=== PATIENT | male | born 2000 | race Caucasian/White ===

== ENCOUNTER 2019-04-22 17:49 | Inpatient (IN) | payer OTHER | END 2019-05-22 13:30 | LOC: ICU 04-28 16:07 → 4TH 05-19 10:55 → ICU 04-28 16:07 → ER 17:49 → ICU 18:45 | PROC: 5A1955Z Respiratory Ventilation, Greater than 96 Consecutive Hours (ICD-10-PCS; principal; 2019-05-06 13:15) | PROC: 0BH17EZ Insertion of Endotracheal Airway into Trachea, Via Natural or Artificial Opening (ICD-10-PCS; 2019-05-06 13:15) | DX: A41.9 Sepsis, unspecified organism (principal); R65.21 Severe sepsis with septic shock; J69.0 Pneumonitis due to inhalation of food and vomit; E10.11 Type 1 diabetes mellitus with ketoacidosis with coma; J96.00 Acute respiratory failure, unspecified whether with hypoxia or hypercapnia; E87.2 Acidosis; E87.6 Hypokalemia; F17.210 Nicotine dependence, cigarettes, uncomplicated; Z79.4 Long term (current) use of insulin; R19.7 Diarrhea, unspecified ==

== ENCOUNTER 2019-05-22 10:46 | Inpatient (IN) | payer OTHER ==
[~2019-05-22] VITALS: Ht 180.3 cm; Wt 48.2 kg
[~2019-05-22 10:46] MED LIST: AMPH25CA3 PO; ATOM60CA3; CALC-6 PO; INSASP10V SQ; INSU100C SQ; INSU100C4 SQ; INSU100I10 SQ; INSU100I14 SQ; INSU100I23 SQ; POTA20TA8 PO; STERIOD CREAM; SULF1TAB7 PO
--- NOTE | 2019-05-22 13:23 | NUR ---
Pt admitted to room 233-1, with an admitting diagnosis of Critical Illness Myopathy on 05/22/19 from 4th floor, via w/c, accompanied by TT, PT, & SM, PCT/1:1 sitter. MIRIAN COLLINS introduced to surroundings, call light, bed controls, phone, TV, temperature control, lights, meal times, smoking policy, visitor policy, side rail policy, bathrooms and showers. Patient Rights given to patient in the handbook. MIRIAN COLLINS acknowledges understanding that [facility] is not responsible for the loss or damage to any personal effects or valuables that are kept in the patients posession during their hospitalization. The following Patient Care Plans were discussed with the pt: Discharge Planning, Self Care Deficit, Impaired Mobility, Alteration in Nutrition/Respiratory. MIRIAN COLLINS acknowledges understanding of Interdisciplinary Patient Education. Patient and/or family were informed about the Rapid Response Team and its purpose. Patient received Patient Rights Booklet, which includes Privacy Act Statement and Data Collection Information Summary.
--- NOTE | 2019-05-22 13:44 | Physical Therapy Evaluation ---
PT Evaluation-General Medical Diagnosis Admission Date May 22, 2019 at 13:23 Medical Diagnosis: DKA Onset Date: Apr 22, 2019 Therapy Diagnosis Therapy Diagnosis: generalized weakness/debility Height/Weight Height (Feet): 5 Height (Inches): 11.00 Weight (Pounds): 108 Weight (Ounces): 9.0 Precautions Precautions/Isolations: Standard Precautions Weight Bear Status Right Lower Extremity: Right Full Weight Bearing Left Lower Extremity: Left Full Weight Bearing Referral Physician: La Reason for Referral: Evaluation/Treatment Medical History Pertinent Medical History: DM, Smoking Current History Found unresponsive in his home by roommates. Patient has been on mechanical ventilator, vapotherm and is now on RA. Patient has a trach and PEG secondary to extreme weakness. Reviewed History: Yes Social History Home: Single Level Current Living Status: Entry Into Home: Level Entry Prior/Core FIM Prior Level of Function Therapy Code Descriptions/Definitions Functional [place] Measure: 0=Not Assessed/NA 4=Minimal Assistance 1=Total Assistance 5=Supervision or Setup 2=Maximal Assistance 6=Modified [place] 3=Moderate Assistance 7=Complete [place] Therapy Quality Codes: 6 Independent with activity with or without an assistive device 5 Patient requires set up or clean up by helper. Patient completes activity by themselves 4 Supervision or touching assist (CGA). [place] provide cues , steadying assist 3 The helper provides less than half the effort to complete the activity 2 The helper provides more than half the effort to complete the activity 1 Dependent. The helper does all the effort to complete an activity 7 Patient refused to complete or attempt activity 9 The patient did not perform the activity before the current illness or injury 88 Not attempted due to Medical conditions or safety concerns Functional Abilities and Goals: Independent: Patient completed the activities by him/herself, with or without an assistive device, with no assistance from a helper. Needed Some Help: Patient needed partial assistance from another person to complete activities. Dependent: A helper completed the activities for the patient. Unknown: Not Applicable: Bed Mobility: 7 Transfers (B,C,W/C) (FIM): 7 Gait: 7 Stairs: 7 Indoor Mobility (Ambulation): Independent Stairs: Independent Prior Devices Use: None PT Evaluation-Current Subjective Patient is very agreeable to transfer to ARU. Pain Numeric Pain Scale: 0-No Pain Location: No Pain Reported Objective Patient Orientation: Normal For Age Problem Solving: Fair Attachments: PEG Tube Trach ROM/Strength ROM Lower Extremities bilateral LE WFL Strenght Lower Extremities right knee flexion/extension 3-/5; hip flexion 3-/5; DF/PF 2-/5 left knee flexion/extension 3-/5; hip flexion 3-/5; DF/PF 2-/5 Integumentary/Posture Integumentary refer to nursing notes Bowel Incontinence: No Bladder Incontinence: No Posture WFL Neuromuscular (Tone, Coordination, Reflexes) diminished coordination due to weakness/muscle atrophy Sensory Vision: Functional Hearing: Functional Sensation Right Lower Extremit: Impaired Sensation Left Lower Extremity: Impaired Transfers Therapy Code Descriptions/Definitions Functional [place] Measure: 0=Not Assessed/NA 4=Minimal Assistance 1=Total Assistance 5=Supervision or Setup 2=Maximal Assistance 6=Modified [place] 3=Moderate Assistance 7=Complete [place] Therapy Quality Codes: 6 Independent with activity with or without an assistive device 5 Patient requires set up or clean up by helper. Patient completes activity by themselves 4 Supervision or touching assist (CGA). [place] provide cues , steadying assist 3 The helper provides less than half the effort to complete the activity 2 The helper provides more than half the effort to complete the activity 1 Dependent. The helper does all the effort to complete an activity 7 Patient refused to complete or attempt activity 9 The patient did not perform the activity before the current illness or injury 88 Not attempted due to Medical conditions or safety concerns Transfers (B, C, W/C) (FIM): 4 Scootin Rollin Roll Left to Right (QC): 5 Supine to/from Sit: 5 Sit to/from Stand: 4 Sit to Lying (QC): 5 Lying to Sitting/Side of Bed(Q: 5 Sit to Stand (QC): 4 Chair/Yxx-zf-Gzpnk Xfer(QC): 4 CGA for safety Gait Does the Patient Walk?: Yes Mode of Locomotion: Both Anticipated Mode of Locomotion: Walk Gait (FIM): 4 Distance (FIM): 3=150 ft Walk 10 feet (QC): 4 Walk 50 ft with 2 Turns(QC): 4 Walk 150 ft (QC): 4 Walking 10ft/uneven surface-QC: 4 Distance: 150' Gait Level of Assist: 4 Gait Persons Needed: 1 Gait Assistive Device: FWW Comments/Gait Description noted slight drop foot bilateral LE and extended UE's with FWW use Wheelchair Training Does the Pt Use a Wheelchair?: Yes Balance Sitting Static: Normal Sitting Dynamic: Normal Standing Static: Fair Standing Dynamic: Fair Assessment/Needs 18 y.o. male, will benefit from skilled PT to address functional strength and mobility to improve current LOF to safely return to independent PLOF in his own home. Patient is severely debility due to extended ventilator use and disease process. Rehab Potential: Fair Post Rehab Potential-Barriers: compliance PT Short Term Goals Short Term Goals Time Frame: Jun 07, 2019 Transfers (B,C,W/C) (FIM): 5 Gait (FIM): 5 Distance (FIM): 3=150 ft Gait Distance Comment: 200' Gait Level of Assist: 5 Gait Assistive Device: FWW PT Fpc Goals Profiling Machine Set Up Operator Tool Goals PT Profiling Machine Set Up Operator Tool Goals Time Frame: Jun 17, 2019 Transfers (B,C,W/C) (FIM): 6 Sit to Lying (QC): 6 Lying-Sitting on Side/Bed(QC): 6 Sit to Stand (QC): 6 Rollin Roll Left to Right (QC): 6 Chair/Rsb-oz-Nergb Xfer(QC): 6 Car Transfer (QC): 6 Does the Patient Walk: Yes Gait (FIM): 6 Gait distance (FIM): 3=150 ft Distance: >300' Walk 10 feet (QC): 6 Walk 10ft-Uneven Surface(QC): 6 Walk 50ft with 2 Turns (QC): 6 Walk 150 ft (QC): 6 Gait Level of Assist: 6 Gait Assistive Device: None, FWW Stairs (FIM): 6 # of Steps: 12 1 Step (curb) (QC): 6 4 Steps (QC): 6 12 Steps (QC): 6 Stairs Level Of Assist: 6 Picking up an Object (QC): 6 PT Plan Problem List Problem List: Activity Tolerance, Functional Strength, Safety, Balance, Gait, Transfer, Bed Mobility Treatment/Plan Treatment Plan: Continue Plan of Care Treatment Plan: Bed Mobility, Education, Functional Activity Cory, Functional Strength, Gait, Safety, Therapeutic Exercise, Transfers Treatment Duration: Jun 17, 2019 Frequency: At least 5 of 7 days/Wk (IRF) Estimated Hrs Per Day: 1.5 hours per day Patient and/or Family Agrees t: Yes Discharge Recommendations Therapy D/C Recommendations: Home w/ Family Support, Home Independently Time/GCodes Time In: 1323 Time Out: 1340 Total Billed Treatment Time: 17 Total Billed Treatment 1 visit EVModC 17 min REGIS CHOWDARY PT May 22, 2019 13:44
[2019-05-22 13:53] VITALS: BP 110/75
--- NOTE | 2019-05-22 14:25 | Physical Therapy Daily Note ---
PT Daily Note-Current Subjective Patient just complete group activity. Mental Status Patient Orientation: Normal For Age Attachments: PEG Tube Transfers Therapy Code Descriptions/Definitions Functional [place] Measure: 0=Not Assessed/NA 4=Minimal Assistance 1=Total Assistance 5=Supervision or Setup 2=Maximal Assistance 6=Modified [place] 3=Moderate Assistance 7=Complete [place] Therapy Quality Codes: 6 Independent with activity with or without an assistive device 5 Patient requires set up or clean up by helper. Patient completes activity by themselves 4 Supervision or touching assist (CGA). [place] provide cues , steadying assist 3 The helper provides less than half the effort to complete the activity 2 The helper provides more than half the effort to complete the activity 1 Dependent. The helper does all the effort to complete an activity 7 Patient refused to complete or attempt activity 9 The patient did not perform the activity before the current illness or injury 88 Not attempted due to Medical conditions or safety concerns Transfers (B, C, W/C) (FIM): 4 Scootin Sit to/from Stand: 4 Sit to Stand (QC): 4 Car Transfer (QC): 5 Weight Bearing Right Lower Extremity: Right Full Weight Bearing Left Lower Extremity: Left Full Weight Bearing Gait Training Does the Patient Walk?: Yes Gait (FIM): 2 Distance (FIM): 0=708-79 ft Distance: 75' x 2 Walk 10 feet (QC): 4 Walk 50 ft with 2 Turns(QC): 4 Walking 10ft/uneven surface-QC: 4 Gait Level of Assist: 4 Gait Persons Needed: 1 Gait Assistive Device: FWW patient is very fatigued/slow, steady gait sequence with improvement in dorsiflexion bilaterally Stair Training Stair Training: Handrails/: uses walker Stairs (FIM): 1 #of Steps: 1 1 Step (curb) (QC): 4 4 Steps (QC): 9 12 Steps (QC): 9 Stairs: Pattern: Step to Level of Assist: 4 Exercises Seated Therapy Exercises: Ankle pumps, Long arc quads, Hip flexion Seated Reps: 15 (2 sets) Treatments Education with patient on importance of compliance with treatment program and discussed goal setting with patient as well. Assessment Patient fatigues with minimal activity and requires sitting recovery periods. Patient voices understanding on compliance with program. RN notified of therapist discussion with patient. PT Short Term Goals Short Term Goals Time Frame: Jun 07, 2019 Transfers (B,C,W/C) (FIM): 5 Gait (FIM): 5 Distance (FIM): 3=150 ft Gait Distance Comment: 200' Gait Level of Assist: 5 Gait Assistive Device: FWW PT Staff Pharmacist Goals Staff Pharmacist Goals PT Staff Pharmacist Goals Time Frame: Jun 17, 2019 Transfers (B,C,W/C) (FIM): 6 Sit to Lying (QC): 6 Lying-Sitting on Side/Bed(QC): 6 Sit to Stand (QC): 6 Rollin Roll Left to Right (QC): 6 Chair/Epq-kl-Gkusy Xfer(QC): 6 Car Transfer (QC): 6 Does the Patient Walk: Yes Gait (FIM): 6 Gait distance (FIM): 3=150 ft Distance: >300' Walk 10 feet (QC): 6 Walk 10ft-Uneven Surface(QC): 6 Walk 50ft with 2 Turns (QC): 6 Walk 150 ft (QC): 6 Gait Level of Assist: 6 Gait Assistive Device: None, FWW Stairs (FIM): 6 # of Steps: 12 1 Step (curb) (QC): 6 4 Steps (QC): 6 12 Steps (QC): 6 Stairs Level Of Assist: 6 Picking up an Object (QC): 6 PT Plan Treatment/Plan Treatment Plan: Continue Plan of Care Treatment Plan: Bed Mobility, Education, Functional Activity Cory, Functional Strength, Gait, Safety, Therapeutic Exercise, Transfers Treatment Duration: Jun 17, 2019 Frequency: At least 5 of 7 days/Wk (IRF) Estimated Hrs Per Day: 1.5 hours per day Patient and/or Family Agrees t: Yes Time/GCodes Time In: 1400 Time Out: 1433 Total Billed Treatment Time: 33 Total Billed Treatment 1 visit GT 15 min FA 18 min REGIS CHOWDARY PT May 22, 2019 14:25
--- NOTE | 2019-05-22 14:29 | NUR ---
Pt's 2 Insulin Pens placed in Rehab locked med room.
--- NOTE | 2019-05-22 14:34 | NUR ---
REVIEWED MED REC IT WAS REPORTED UPON ADMISSION TO 4TH FLOOR.
--- NOTE | 2019-05-22 14:50 | Therapy Group Daily Note ---
Therapy Daily Group Note Patient Education Topic Exercises Exercises LE Seated Exercise, UE Exercise Session Ratio (pt:therapist): 4:1 Goal of Session: UE/LE Strengthing, Other (list) (deep breathing) Encourage functional strength and ROM of U/LE as well as facilitate deep breathing techniques in light of recent vent dependent Goal Met for this Session: Yes Pt Benefit of Group: Increased Functional Strength, Socialization, Other Pt seemed to enjoy interacting with others within the group and received encouratement of the progress he will make. Other/Notes pt attended part of the group session. His primary exercises performed were deep breathing and LE ther ex. He was participatory and wanted to lead his exercise willingly. Start Time: 13:40 Stop Time: 14:00 Total Billed Treatment Time: 20 Total Billed Treatment visit GRP 20 YOLANDA PIZARRO PT May 22, 2019 14:50
[2019-05-22 15:00] VITALS: BP 110/75
--- NOTE | 2019-05-22 15:03 | PM&R H&P / Post Admit Assess ---
History of Present Illness HPI/Chief Complaint Chief complaint: Critical illness myopathy History of present illness: This is a 18-year-old white male with a past medical history of type 1 diabetes who was admitted 31 days ago from the ER with critical illness requiring ventilator dependence and insulin drip with multiple attempts to extubate which were unsuccessful and subsequently required trach placement in addition to PEG tube placement who presents to inpatient rehab unit clinically stable and much improved and no longer critically ill but has a BMI of 15 and such severe weakness he will need aggressive rehab and therapy in order to regain any type of function. 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 He is status post several weeks of antibiotics in addition to antifungals and currently being monitored by pulmonology for severe pulmonary disease brought on by long-term ventilator support. Blood sugars have been very labile including multiple hypoglycemic episodes so will minimize the amount of insulin considering weight loss of 60 pounds over the last couple of months indicating the weight loss started a month before this critical illness currently as a result of noncompliance with insulin administration. Previously he was independent of ADLs and full-time worker as a welder metal fab and was ambulating without assistive device. Source: patient, RN/MD, old records Exam Limitations: no limitations Date Seen 05/22/19 Time Seen by a Provider: 14:00 Attending Physician Renteta Tovar DO PCP No,Local Physician Referring Physician Date of Admission May 22, 2019 at 13:23 Home Medications & Allergies Home Medications Reviewed patient Home Medication Reconciliation performed by pharmacy medication reconciliations pump house technician and/or nursing. Patients Allergies have been reviewed. Allergies Allergies Coded Allergies No Known Drug Allergies (Unverified06/23/09) Past Clxwrbg-Apmnyb-Itetfo Hx Past Med/Social Hx: Reviewed Nursing Past Med/Soc Hx, Reviewed and Corrections made Patient Social History Marrital Status: single Employed/Student: employed (welder metal fab) Smoking Status: Unknown if Ever Smoked Type Used: Cigarettes 2nd Hand Smoke Exposure: No Recent Foreign Travel: No Contact w/other who traveled: No Recent Hopitalizations: Yes (DKA) Recent Infectious Disease Expo: No Seasonal Allergies Seasonal Allergies: No Past Medical History trach, peg during this hospital stay Reproductive: No Sexually Transmitted Disease: No HIV/AIDS: No Endocrine: Diabetes, Insulin dep Loss of Vision: Denies Hearing Impairment: Denies History of Blood Disorders: No Adverse Reaction to Blood Cristobal: No Family History Patient reports no known family medical history. Other Conditions/Hx Review of Systems Constitutional: see HPI, malaise, weakness EENTM: no symptoms reported Respiratory: cough, dyspnea on exertion Cardiovascular: no symptoms reported Gastrointestinal: abdominal pain, loss of appetite Genitourinary: no symptoms reported Musculoskeletal: no symptoms reported Skin: see HPI (left heel early decubitus) All Other Systems Reviewed Negative Unless Noted: Yes Physical Exam Exam Vital Signs Vital Signs Date Time Temp Pulse Resp B/P (MAP) Pulse Ox O2 Delivery O2 Flow Rate FiO2 05/22/19 19:11 98.1 115 20 112/70 (84) 92 Nasal Cannula 2.00 Capillary Refill : General Appearance: WD/WN, Anxious, Chronically ill, Cachetic HEENT: PERRL/EOMI, Normal ENT Inspection, Pharynx Normal, Moist Mucous Membranes, Other Neck: Full Range of Motion, Normal Inspection, Non Tender, Supple, Other (trach in place) Respiratory: Chest Non Tender, No Accessory Muscle Use, No Respiratory Distress, Crackles, Decreased Breath Sounds, Wheezing Cardiovascular: Regular Rate, Rhythm, No Edema, No Gallop, No JVD, No Murmur Gastrointestinal: Normal Bowel Sounds, No Organomegaly, No Pulsatile Mass, Non Tender, Soft, Other (peg in place) Back: Normal Inspection, No CVA Tenderness, No Vertebral Tenderness Extremity: Normal Capillary Refill, Normal Inspection, Normal Range of Motion, Non Tender, No Calf Tenderness, No Pedal Edema Neurologic/Psychiatric: Alert, Oriented x3, No Motor/Sensory Deficits, Normal Mood/Affect Skin: Normal Color, Warm/Dry Lymphatic: No Adenopathy Results Results/Procedures Labs Patient resulted labs reviewed. Assessment/Plan Assessment and Plan Assess & Plan/Chief Complaint Assessment: Critical illness myopathy Type 1 diabetes Poorly controlled diabetes mellitus Cachexia Elevated troponin PEG tube in place Trach in place Brittle diabetes Plan: Minimize hypoglycemia by checking blood sugar checks every 4 hours and modified sliding scale to prevent hypoglycemia PEG tube feedings Intensive rehab with therapies Monitor closely (1) Myopathy (2) Tracheostomy in place (3) PEG (percutaneous endoscopic gastrostomy) status (4) Decubitus ulcer, heel (5) Cachexia (6) Anemia (7) Poorly controlled diabetes mellitus (8) Increased ammonia level (9) Respiratory failure (10) Diabetic ketoacidosis (11) Pneumonia (12) Acute pancreatitis (13) Electrolyte imbalance (14) Leukocytosis Post Admission Physician Asses Date seen by provider: May 22, 2019 Time seen by provider: 14:00 Admisison Dx: (1) Myopathy The preadmission screen agrees with the post admission assessment that 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 The patient will have a comprehensive program of inpatient rehabilitation with a goal of maximizing level of functional independence prior to discharge home with family. The patient will have PT/OT ninety minutes per day, each discipline, five days a week for gait, strengthening, conditioning, balance, ADLs, any patient/family/caregiver training as necessary. Speech therapy to do cognitive assessment and treat as indicated. Rehabilitation nursing to assist with bowel, bladder, skin, wound care, medication administration, pain management. Mapping Specialist to assist with discharge planning, community reentry. SCD's for DVT prophylaxis. He appears to be well motivated to participate in three hours of therapy a day. He should be able to tolerate three hours of therapy a day from a medical standpoint. He should benefit from the three hours of therapy a day. He has a reasonable discharge plan, reasonable discharge rehabilitation goals and a supportive family. He has various comorbidities that need to be closely monitored with medications and treatments adjusted on a daily basis as needed. These include: see list Barriers to discharge for this patient who had been independent prior to this are for him to be modified independent to supervision for ADLs and mobility skills prior to discharge home with family, so as to lessen the burden of the caregivers. Risks for this patient include: 1. Fall 2. Fracture 3. DVT 4. Pulmonary embolism 5. Wound infection 6. Skin breakdown 7. Contractures 8. Poorly controlled pain 9. Urinary retention 10. UTI 11. Respiratory infection 12. Aspiration Estimated Length of Stay: 14 days Prognosis: Rehab prognosis appears good for goal of discharge home with family modified independent to supervision for ADLs and mobility skills. RENETTA TOVAR DO May 22, 2019 15:03
[2019-05-22] MEDS ORDERED: SILVASORB GEL 1.5 OZ TP SCH (15:15)
[2019-05-22] MEDS ORDERED: ZINC OXIDE 16% OINT (BUTT PASTE) 113 GM TUBE TOP PRN (15:15)
[2019-05-22] MEDS ORDERED: APAP 325 MG/10.15 ML LIQ (TYLENOL) UDC PO PRN (15:15)
[2019-05-22] MEDS ORDERED: RT-ALBUTEROL/IPRATROPIUM 3 ML (DUONEB) VIAL INH PRN (15:15)
[2019-05-22] MEDS ORDERED: RT-ALBUTEROL SULF 2.5 MG/3 ML PRE-MIX VIAL IH PRN (15:15)
[2019-05-22 15:42] VITALS: BP 108/72
--- NOTE | 2019-05-22 15:44 | Occupational Therapy Eval ---
OT Evaluation-General/PLF Medical Diagnosis Admission Date May 22, 2019 at 13:23 Medical Diagnosis: DKA Onset Date: Apr 22, 2019 Therapy Diagnosis Therapy Diagnosis: Weakness Height/Weight Height (Feet): 5 Height (Inches): 11.00 Weight (Pounds): 107 Weight (Ounces): 8.0 Precautions Precautions/Isolations: Standard Precautions Weight Bear Status Weight Bearing Restriction: Weight Bearing/Tolerated Referral Physician: La Referral Reason: Activity Tolerance, Self Care, Evaluation/Treatment, Strengthening/ROM Medical History Pertinent Medical History: DM, Smoking Current History Pt. found unconscious by room mate. Pt. has been on and off ventilator support since being in hospital. Tolerating room air at this time with trach in place. Reviewed History: Yes Social History Home: Single Level Current Living Status: Entry Into Home: Level Entry ADL-Prior Level of Function Therapy Code Descriptions/Definitions Functional Barnwell Measure: 0=Not Assessed/NA 4=Minimal Assistance 1=Total Assistance 5=Supervision or Setup 2=Maximal Assistance 6=Modified Barn[place] 3=Moderate Assistance 7=Complete [place] Therapy Quality Codes: 6 Independent with activity with or without an assistive device 5 Patient requires set up or clean up by helper. Patient completes activity by themselves 4 Supervision or touching assist (CGA). Dennison provide cues , steadying assist 3 The helper provides less than half the effort to complete the activity 2 The helper provides more than half the effort to complete the activity 1 Dependent. The helper does all the effort to complete an activity 7 Patient refused to complete or attempt activity 9 The patient did not perform the activity before the current illness or injury 88 Not attempted due to Medical conditions or safety concerns Functional Abilities and Goals: Independent: Patient completed the activities by him/herself, with or without an assistive device, with no assistance from a helper. Needed Some Help: Patient needed partial assistance from another person to complete activities. Dependent: A helper completed the activities for the patient. Unknown: Not Applicable: ADL PLOF Comments Pt. was independent with daily skills. 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 Drive Self: Yes OT Current Status Subjective Pt. does not report pain, but does verbalize being very tired. Appearance Pt. is up in chair when OT enters room. Pt. is eager to have a shower. Mental Status/Objective Patient Orientation: Person, Place, Time, Situation Attachments: PEG Tube, Telemetry Current Upper Extremity ROM WFL ADL-Treatment Bathing (FIM): 2 Shower/Bathe Self (QC): 2 Upper Body Dressing (FIM): 2 Upper Body Dressing (QC): 2 Lower Body Dressing (FIM): 2 Lower Body Dressing (QC): 2 On/Off Footwear (QC): 2 Transfers (B, C, W/C) (FIM): 4 Shower Transfer (FIM): 4 Other Treatments Pt. has difficulty standing due to fatigue. Pt. transferred to wheelchair from chair and went to shower. OT assisted pt. into shower. At this point, pt. has difficulty with strength and OT assisted with doffing clothing. Pt. states that the shower feels good, but does not initiate showering self. OT asks pt. if he needs assistance and he does. OT completed most bathing tasks for him. Pt. requested to sit in shower longer as it was his first in awhile. OT assisted pt. with slipper socks and fresh hospital gown after this, as pt. did not have much strength to snuff grinder shower. Transferred with min assist to wheelchair and then to bed from wheelchair. Nursing came in and OT/nursing assessed skin and positioned pt. to comfort level. All needs were met. Education OT Patient Education: Correct positioning, Modified ADL techniques, Progress t brandy Goal/Update tx plan, Purpose of tx/functional activities, Reviewed precautions, Rehab process, Transfer techniques Teaching Recipient: Patient Teaching Methods: Demonstration, Discussion Response to Teaching: Verbalize Understanding, Return Demonstration OT Short Term Goals Short Term Goals Time Frame: Jun 05, 2019 Eating(FIM): 5 Grooming(FIM): 4 Bathing(FIM): 3 Upper Body Dressing(FIM): 4 Lower Body Dressing(FIM): 3 Toileting(FIM): 4 Transfers (B,C,W/C) (FIM): 5 Toilet/Commode Transfer(FIM): 5 Shower Transfer(FIM): 5 1=Demonstrate adherence to instructed precautions during ADL tasks. 2=Patient will verbalize/demonstrate understanding of assistive devices/modifications for ADL. 3=Patient will improve strength/tolerance for activity to enable patient to perform ADL's. OT Public Health Aide Goals Correction Goals Time Frame: Jun 19, 2019 Eating (FIM): 6 Eating (QC): 6 Groomin Oral Hygiene (QC): 6 Bathing(FIM): 5 Shower/Bathe Self (QC): 5 Upper Body Dressing(FIM): 6 Upper Body Dressing (QC): 6 Lower Body Dressing(FIM): 6 Lower Body Dressing (QC): 6 On/Off Footwear (QC): 6 Toileting(FIM): 6 Toileting Hygiene (QC): 6 Transfers (B,C,W/C) (FIM): 6 Toilet/Commode Transfer(FIM): 6 Toilet/Commode Transfer (QC): 6 Shower Transfer(FIM): 5 Additional Goals: 1-Demonstrate ADL Tasks, 2-Verbalize Understanding, 3- ImproveStrength/Cory 1=Demonstrate adherence to instructed precautions during ADL tasks. 2=Patient will verbalize/demonstrate understanding of assistive devices/modifications for ADL. 3=Patient will improve strength/tolerance for activity to enable patient to perform ADL's. OT Education/Plan Problem List/Assessment Assessment: Decreased Activ Tolerance, Decreased UE Strength, Dependent Transfers, Impaired Bed Mobility, Impaired I ADL's, Impaired Self-Care Skills Discharge Recommendations Plan/Recommendations: Continue POC Therapy D/C Recommendations: Home w/ Family Support, Occupational Therapy Home Care, Scheduled Assistance Treatment Plan/Plan of Care Treatment,Training & Education: Yes Patient would benefit from OT for education, treatment and training to promote independence in ADL's, mobility, safety and/or upper extremity function for ADL's. Plan of Care: ADL Retraining, Functional Mobility, Group Exercise/Act as Ind, UE Funct Exercise/Act Treatment Duration: Jun 19, 2019 Frequency: At least 5 of 7 days/Wk (IRF) Estimated Hrs Per Day: 1.5 hours per day Agreement: Yes Rehab Potential: Good Time/GCodes Start Time: 14:33 Stop Time: 15:35 Total Time Billed (hr/min): 62 Billed Treatment Time 1, EVH x 15minutes, ADL x 47minutes JUNG LAMB OT May 22, 2019 15:44
--- NOTE | 2019-05-22 15:44 | NUR ---
Follow up visit: Pt is alert and oriented. No visitors at this time.
[2019-05-22] MEDS ORDERED: inSUlin ASPART (NovoLOG) 1 UNIT/0.01 ML (CHARGE PER UNIT) SC SCH (16:00)
--- NOTE | 2019-05-22 16:54 | ST Cognitive Linguistic Eval ---
Speech Evaluation-General Medical Diagnosis DKA Onset Date: Apr 22, 2019 Therapy Diagnosis Therapy Diagnosis: Cognitive-communication Precautions Precautions/Isolations: Aspiration, Fall Prevention, Standard Precautions Referral Referring Physician: Dr. Tovar Medical History Pertinent Medical History: DM, Smoking Reviewed History: Yes Social History Current Living Status: Speech PLF-Current Status Prior Level of Function The patient has been in the hospital for quite some time after being found unconcious by his room mate. He has been intubated two times. He currently is on a trach with room air. Subjective The patient was compliant with the cognitive evaluation. Language Eval: Auditory Comprehends Simple Yes/No Ques: Functional Indent/Objects Multiple [place]: Functional Ident/Pics in Multiple [place]: Functional Follows 1-Step Commands: Functional Follows Complex Directions: Mild Follows General Conversations: Functional Language Eval: Verbal Language Completes Spontaneous Greeting: Functional Produces Auto, Serial Info: Functional Imitates Simple Words/Phrases: Functional Word Finding: Mild Requests Basic Needs: Functional States Basic Personal Info: Functional Expresses Complex Ideas: Mild Objective Cognitive Domain Attention: WNL Memory: Mild Problem Solving: Mild Executive Functions: Mild Visuospatial Skills: Mild Composite Severity Rating: Mild Clock Drawing Severity Rating: Mild Objective Formal/Standardized Tests [facility] Status (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 He was admitted to the hospital several weeks ago after being found unconscious by his room mate. The patient has had a very complex hospital stay including being intubated twice. He currently has a trach with a speaking valve. He has a PEG tube for feeding at this time after several episodes of aspiration. The SLUMS was given with a score of 24/30 in MNCD range, The patient will receive skilled ST to focus on memory and problem solving related to safety awareness and regaining independence. The patient is expected to make good progress as his medical status improves. Communication/Social Cognition Comprehension: 6 Expression: 5 Social Interaction: 6 Problem Solvin Memory: 4 Speech Patient Assess Expression of Ideas/Wants: Exhibits (3) Understanding Verbal Content: Usually Understands (3) Brief Interview-Mental Status: Yes Repetition of Three Words: Three (3) Temporal Orientation: Year: Correct (3) Temporal Orientation: Month: Accurate within 5 days(2) Temporal Orientation: Day: Correct (1) Recall : Wear to say "Sock": Yes,after cueing (1) Recall : Color: No, could not recall (0) Recall : Bed: No, could not recall (0) Memory/Recall Ability: That he or she is in a hsp/hsp unit Speech Short Term Goals Short Term Goals Short Term Goals 1) The patient will complete memory tasks related to his daily needs at 90% or greater. 2) The patient will complete problem solving tasks related to his daily needs at 90% or greater. 3) The patient will complete safety awareness tasks related to his daily needs at 90% or greater. Speech Group Home Goals Group Home Goals The patient will improve safety awareness and independence in order to return home safely. Speech-Plan Patient/Family Goals Patient/Family Goals: The patient plans on returning home post rehab. Treatment Plan Speech Therapy Treatment Plan: Continue Plan of Care The patient will receive skilled ST for cognitive deficits. Treatment Duration: Jun 02, 2019 Frequency: 5 times per week Estimated Hrs Per Day: .5 hour per day Rehab Potential: Good Barriers to Learning: Patient has been in the hospital for quite a while with a complex medical status. Pt/Family Agrees to Plan: Yes Safety Risks/Education Teaching Recipient: Patient, Family, Significant Other Teaching Methods: Discussion Response to Teaching: Verbalize Understanding Education Topics Provided: Safety within the room Time Speech Therapy Time In: 16:30 Speech Therapy Time Out: 16:45 Total Billed Time: 15 Billed Treatment Time 1, SPSNDCOMP ARYAN Castro May 22, 2019 16:54
--- NOTE | 2019-05-22 18:07 | NUR ---
Gave 120cc of juice as ordered by Dr. Tovar per peg tube, pt sarina well. Pt reports that he can tell his B/S is coming up now.
[2019-05-22] MEDS: LACTOBACILLUS ACIDOPHILUS (PROBIOTIC) CAPSULE PO SCH (18:14)
[2019-05-22 18:16] VITALS: BP 113/76
[2019-05-22] MEDS: VANCOMYCIN 1 GM/NS 250 ML IVPB IV SCH ×2 (19:03)
[2019-05-22] MEDS: meTOprolol TARTRATE 50 MG (LOPRESSOR) TAB PEG SCH (19:08)
[2019-05-22 19:11] VITALS: BP 112/70
[2019-05-22 20:45] VITALS: BP 114/74
[2019-05-22] MEDS: METOCLOPRAMIDE 10MG/10ML ORAL SOL(REGLAN) UDC PEG SCH (21:05)
--- NOTE | 2019-05-22 21:25 | NUR ---
Pt resting in bed, 1:1 sitter present. Pt texting on phone. Notified Dr. Tovar of FSBS of 49 @ 1757, had administered 1 can of Jevity per peg. B/S 49 again, notified Dr. Ronquillo'd order to give juice, gave cranberry juice per peg, as was the only juice on the unit. Rec'd Insulin order changes. See MAR.
--- NOTE | 2019-05-22 21:27 | NUR ---
Checked TF residual prior to Reglan administration at 2100. 950cc residual noted. Dr. Tovar notified and new orders received to hold TF until residual less than 150cc. Cont to monitor.
[2019-05-22] MEDS: RT-ALBUTEROL/IPRATROPIUM 3 ML (DUONEB) VIAL INH SCH (23:00)
[2019-05-22] MEDS: inSUlin ASPART (NovoLOG) 1 UNIT/0.01 ML (CHARGE PER UNIT) SC SCH (23:10)
[2019-05-23] MEDS: meTOprolol TARTRATE 50 MG (LOPRESSOR) TAB PEG SCH ×4 (00:41→18:23)
[2019-05-23] MEDS: VANCOMYCIN 1 GM/NS 250 ML IVPB IV SCH ×2 (00:41)
--- NOTE | 2019-05-23 00:47 | NUR ---
Peg tube residual 5cc. TF restarted at this time.
[2019-05-23 00:56] VITALS: BP 129/86
[2019-05-23] MEDS: RT-ALBUTEROL/IPRATROPIUM 3 ML (DUONEB) VIAL INH SCH ×6 (02:43→22:45)
[2019-05-23] MEDS: inSUlin ASPART (NovoLOG) 1 UNIT/0.01 ML (CHARGE PER UNIT) SC SCH ×7 (04:11→21:55)
[2019-05-23 04:24] VITALS: BP 120/82
[2019-05-23] MEDS: LACTOBACILLUS ACIDOPHILUS (PROBIOTIC) CAPSULE PO SCH ×3 (06:24→18:23)
[2019-05-23] MEDS: MULTIVITAMINS LIQUID 15 ML UDC PO SCH (06:24)
[2019-05-23 06:35] LABS: BASOPHILS # (AUTO) 0.1 10^3/uL (0.0-0.1); BASOPHILS % (AUTO) 0 % (0-10); EOSINOPHILS # (AUTO) 0.5 10^3/uL (0.0-0.3); EOSINOPHILS % (AUTO) 4 % (0-10); HEMATOCRIT 32 % (40-54); HEMOGLOBIN 10.6 G/DL (13.3-17.7); LYMPHOCYTES # (AUTO) 2.1 X 10^3 (1.0-4.0); LYMPHOCYTES % (AUTO) 18 % (12-44); MEAN CORPUSCULAR HEMOGLOBIN 27 PG (25-34); MEAN CORPUSCULAR HGB CONC 33 G/DL (32-36); MEAN CORPUSCULAR VOLUME 82 FL (80-99); MEAN PLATELET VOLUME 10.6 FL (7.4-10.4); MONOCYTES # (AUTO) 1.2 X 10^3 (0.0-1.0); MONOCYTES % (AUTO) 10 % (0-12); NEUTROPHILS # (AUTO) 7.9 X 10^3 (1.8-7.8); NEUTROPHILS % (AUTO) 67 % (42-75); PLATELET COUNT 511 10^3/uL (130-400); RED CELL DISTRIBUTION WIDTH 13.2 % (10.0-14.5); WHITE BLOOD COUNT 11.8 10^3/uL (4.3-11.0)
[2019-05-23 07:05] LABS: ALANINE AMINOTRANSFERASE 22 U/L (0-55); ALBUMIN 3.1 GM/DL (3.2-4.5); ALKALINE PHOSPHATASE 161 U/L (40-136); BILIRUBIN,TOTAL 0.4 MG/DL (0.1-1.0); BUN/CREATININE RATIO 26; CALCIUM 10.2 MG/DL (8.5-10.1); CARBON DIOXIDE 27 MMOL/L (21-32); CHLORIDE 98 MMOL/L (98-107); CREATININE SERUM 0.68 MG/DL (0.60-1.30); GFR ESTIMATED > 60; GLUCOSE 371 MG/DL (70-105); POTASSIUM 4.1 MMOL/L (3.6-5.0); SODIUM 137 MMOL/L (135-145); TOTAL PROTEIN 6.4 GM/DL (6.4-8.2)
[2019-05-23 07:06] VITALS: BP 118/79
--- NOTE | 2019-05-23 07:29 | NUR ---
PATIENT WAS ON 2 L AND SATTING 97% SO RT KERRI REMOVED O2 AT THIS TIME; NO DISTRESS NOTED; PATIENT IS COUGHING UP GREEN THICK SPUTUM WHICH HE IS SUCTIONING OUT. HE HAD NO PROBLEM DOING THE IS AND THE AEROBIKA AFTER HIS SVN DUONEB BREATHING TX.
--- NOTE | 2019-05-23 09:55 | Individualized Plan of Care ---
Individualized Plan of Care Rehab Nursing IPOC Order Admission Date May 22, 2019 at 13:23 Current Orders Orders Admission Order(Inpt,Obs,Sdc) (05/22/19 11:49) Energy And Conservation Technician-Inpt Rehab Con (05/22/19 11:49) Rehab Nursing Orders-Ipoc (05/22/19 11:49) Physical Therapy Rehab Orders (05/22/19 11:49) Occupational Therapy Rehab Ord (05/22/19 11:49) Speech Therapy Rehab Orders (05/22/19 11:49) Intake & Output 06,14,22 (05/22/19 11:49) Precautions (Aru) (05/22/19 11:49) Weekly Weight (Lbs) WEEK (05/22/19 11:49) Rehab-Intensity Of Therapy (05/22/19 11:49) Initiate Admission Nursing Pro .admission (05/22/19 11:49) Accucheck Achs ACHS (05/22/19 11:49) Insulin Aspart (Novolog) (Novolog (Charg (05/22/19 16:00) Cbc With Automated Diff (05/23/19 06:00) Comprehensive Metabolic Panel (05/23/19 06:00) Admission Arrival Bed Request (05/22/19 13:23) Patient Visit (05/22/19 ) Pt Eval Moderate Complexity (05/22/19 ) Gait Training, Ea 15 Min (05/22/19 ) Functional Activities, Ea 15 (05/22/19 ) Code/Resuscitation (05/22/19 15:03) Activity As Ordered UD (05/22/19 15:03) Advanced Wound Care Dressing O BID (05/22/19 15:03) Ambulate 08,12,20 (05/22/19 15:03) Initiate Admission Nursing Pro .admission (05/22/19 15:03) Initiate/Follow Protocol (05/22/19 15:03) Nursing Communication (Order) (05/22/19 15:03) Sequential Compression Device 08,20 (05/22/19 15:03) Skin Integrity Checks (05/22/19 15:03) Tracheostomy Care (05/22/19 15:03) Vital Signs: Every 4 Hours (Or (05/22/19 15:03) Nothing By Mouth (05/23/19 Breakfast) Acetaminophen Oral Solution (Tylenol Ora (05/22/19 15:15) Albuterol Pre-Mix Nebs (Rt) (Proventil (05/22/19 15:15) Albuterol/Ipra Inhalation Soln (Duoneb I (05/22/19 15:15) Anidulafungin Injection (Eraxis Injectio (05/23/19 09:00) Citalopram Tablet (Celexa Tablet) (05/23/19 09:00) Enoxaparin Injection (Lovenox Injection) (05/23/19 09:00) Lactobacillus Acidophilus Cap (Acidophil (05/22/19 17:00) Metoclopramide Oral Liquid (Reglan Oral (05/22/19 21:00) Multivitamins Liquid (Geritol Liquid) (05/23/19 07:00) Silver Gel (Silvasorb Gel) (05/22/19 15:15) Zinc Oxide 16% Ointment (Butt Paste) (05/22/19 15:15) Insulin Determir (Per Unit) (Levemir (Pe (05/22/19 21:00) Metoprolol Tartrate (Ir) Tab (Lopressor (05/22/19 18:00) Behavorial Health Consult (05/22/19 15:03) Consult Pulmonology (05/22/19 15:03) Dietary Consult (05/22/19 15:03) Pharmacy Consult/Message (05/22/19 15:03) Svn Small Volume Nebulizer (05/22/19 15:03) Vancomycin Injection (Vancomycin Injecti (05/22/19 16:00) Patient Visit (05/22/19 ) Therapeutic, Group (05/22/19 ) Patient Visit (05/22/19 ) Speech Sound Lang Comp (05/22/19 ) Follow Hypoglycemia Protocol (05/22/19 17:50) Insulin Determir (Per Unit) (Levemir (Pe (05/23/19 09:00) Accucheck Q4hr Q4HR (05/22/19 20:49) Nursing Communication (Order) (05/22/19 20:49) Insulin Aspart (Novolog) (Novolog (Charg (05/23/19 00:00) Venous Access Request Order (05/22/19 21:22) Nursing Communication (Order) (05/22/19 21:26) Communication For Respiratory (05/22/19 21:26) Albuterol/Ipra Inhalation Soln (Duoneb I (05/22/19 22:00) Svn Small Volume Nebulizer (05/22/19 21:26) Ambulate 08,12,20 (05/22/19 22:20) Sequential Compression Device 08,20 (05/22/19 22:20) Dvt/Vte Risk - Notifiy Physici 08 (05/22/19 22:20) Request For Dysphagia Services (05/22/19 22:27) Speech Therapy Orders (05/22/19 22:27) Request Ot Evaluate & Treat (05/22/19 22:27) Tube Feeding (Diet) (05/23/19 13:54) Insulin Aspart (Novolog) (Novolog (Charg (05/23/19 14:00) Insulin Aspart (Novolog) (Novolog (Charg (05/23/19 16:00) Patient Visit (05/23/19 ) Gait Training, Ea 15 Min (05/23/19 ) Exercise Therap, Ea 15 Min (05/23/19 ) Patient Visit (05/23/19 ) Treat. Speech/Lang/Voice (05/23/19 ) Rehab Nursing Orders: Ongoing Assess. of Cognitive Status, Ongoing Assess. of Function Status, Disease Management & Educaiton, DVT Prophylaxis, Fall Prevention, Fluid/Electrolyte/Nutrition Mgmt, Infection Prevention, Medication Management & Education, Management of Risks & Complications, Management of Skin Intergrity, Nutrition Management, Pain Management, Patient/Family Support, Safety Management, Swallow Precautions Intensity of Therapy to be met Patient to be seen: Min.3h per day/5 of 7d PT IPOC Problem List: Activity Tolerance, Functional Strength, Safety, Balance, Gait, Transfer, Bed Mobility Treatment Plan: Continue Plan of Care Bed Mobility, Education, Functional Activity Cory, Functional Strength, Gait, Safety, Therapeutic Exercise, Transfers Treatment Duration: Jun 17, 2019 Frequency: At least 5 of 7 days/Wk (IRF) Estimated Hrs Per Day: 1.5 hours per day OT IPOC Problems: Decreased Activ Tolerance, Decreased UE Strength, Dependent Transfers, Impaired Bed Mobility, Impaired I ADL's, Impaired Self-Care Skills OT Treatment, Training and Edu: Yes Plan of Care: ADL Retraining, Functional Mobility, Group Exercise/Act as Ind, UE Funct Exercise/Act Treatment Duration: Jun 19, 2019 Frequency: At least 5 of 7 days/Wk (IRF) Estimated Hrs Per Day: 1.[address] IPOC Speech Therapy Treatment Plan: Continue Plan of Care Treatment Duration: Jun 02, 2019 Frequency: 5 times per week Estimated Hrs Per Day: .5 hour per day Energy And Conservation Technician/Case Mgmt Energy And Conservation Technician/Case Managemen: Discharge Planning Dietitian/Traction Power Engineer Dietitian/Traction Power Engineer to monitor nutritional status and make changes and/or recommendations as needed and work with speech pathology on dietary upgrades as the occur. Neuropsychology/Psychology depression Physician [facility] Medical Issues being managed closely and that require the 24 hour availability of a physician: Brittle DM will require close monitoring of sugars Q2 hours and using small doses of insulin and will require close monitoring of aspiration due to high residuals on PEG tube checks and trach checks Medical Issues: Bowel/Bladder Function, DVT Prophylaxis, Falls Precautions, Fluid/Electrolyte/Nutrition Balance Brief Synthesis of Preadmission Screen, Post-Admission Evaluation, and Therapy Evaluations: PT will focus on overall strengthening and fall prevention and use of assistive devices like walker OT will focus on independent ADL's and use of assistive devices ST will work on dysphagia and aspiration risk Medical Prognosis: Good Anticipated Length of Stay: 14 days STEVAN BURGOS DO May 23, 2019 09:55
--- NOTE | 2019-05-23 09:55 | PM&R Progress Note ---
Subjective HPI/CC On Admission Date Seen by Provider: May 23, 2019 Time Seen by Provider: 09:30 Chief complaint: Critical illness myopathy History of present illness: This is a 18-year-old white male with a past medical history of type 1 diabetes who was admitted 31 days ago from the ER with critical illness requiring ventilator dependence and insulin drip with multiple attempts to extubate which were unsuccessful and subsequently required trach placement in addition to PEG tube placement who presents to inpatient rehab unit clinically stable and much improved and no longer critically ill but has a BMI of 15 and such severe weakness he will need aggressive rehab and therapy in order to regain any type of function. 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 He is status post several weeks of antibiotics in addition to antifungals and currently being monitored by pulmonology for severe pulmonary disease brought on by long-term ventilator support. Blood sugars have been very labile including multiple hypoglycemic episodes so will minimize the amount of insulin considering weight loss of 60 pounds over the last couple of months indicating the weight loss started a month before this critical illness currently as a result of noncompliance with insulin administration. Previously he was independent of ADLs and full-time worker as a production line welder and was ambulating without assistive device. Subjective/Events-last exam Psych consult will be performed today and he is willing to do that. Has a sitter at the bedside and limiting visitors. Labile sugars continue as expected since he is so brittle on a chronic basis. His Hgb A1C was 12.6 on admission and having such severe hypoglycemia will allow him to have permissive hyperglycemia, check blood sugars every four hours and will initiate a very modified sliding scale insulin regimen to decrease the chance of hypoglycemia and thus obtain some stability. Will get Pt a dry erase board because it appears his voice is ineffective. Pt does have a speaking valve on his trach so may need to inquire with Dr. Christie regarding anything we can do for his voice. Bowels are moving. No pain is reported. Wants to get out of here as soon as possible since he reports he has been in the hospital since April 16. Overall doing much better. Ambulating with PT. Peg tube still maintained with large amount of residual so I am holding that until it is less than 150 CCs of residual because he does have a component of gastroparesis and is still maintained on reglan liquid. After rounds RN spoke to neon molder at my request and we have changed the TF to less carbs that had been changed to this formulation due to increased residuals so will monitor that closely but considering he is still have residuals we will be able to manage his diabetes a lot easier if we change formulations Review of Systems General: Fatigue Objective Exam Vital Signs Vital Signs Date Time Temp Pulse Resp B/P (MAP) Pulse Ox O2 Delivery O2 Flow Rate FiO2 05/23/19 19:38 98.7 95 16 113/72 (86) 95 Room Air 05/23/19 09:00 2.00 Capillary Refill : General Appearance: No Apparent Distress, WD/WN, Anxious, Chronically ill, Cachetic HEENT: PERRL/EOMI, Normal ENT Inspection, Pharynx Normal, Moist Mucous Membranes, Other Neck: Full Range of Motion, Normal Inspection, Non Tender, Supple, Other (trach in place) Respiratory: Chest Non Tender, No Accessory Muscle Use, No Respiratory Distress, Crackles, Decreased Breath Sounds, Wheezing Cardiovascular: Regular Rate, Rhythm, No Edema, No Gallop, No JVD, No Murmur Gastrointestinal: Normal Bowel Sounds, No Organomegaly, No Pulsatile Mass, Non Tender, Soft, Other (peg in place) Back: Normal Inspection, No CVA Tenderness, No Vertebral Tenderness Extremity: Normal Capillary Refill, Normal Inspection, Normal Range of Motion, Non Tender, No Calf Tenderness, No Pedal Edema Neurologic/Psychiatric: Alert, Oriented x3, No Motor/Sensory Deficits, Normal Mood/Affect Skin: Normal Color, Warm/Dry Lymphatic: No Adenopathy Results/Procedures Lab Laboratory Tests 05/23/19 06:25 Patient resulted labs reviewed. FIM Transfers Therapy Code Descriptions/Definitions Functional [place] Measure: 0=Not Assessed/NA 4=Minimal Assistance 1=Total Assistance 5=Supervision or Setup 2=Maximal Assistance 6=Modified [place] 3=Moderate Assistance 7=Complete [place] Therapy Quality Codes: 6 Independent with activity with or without an assistive device 5 Patient requires set up or clean up by helper. Patient completes activity by themselves 4 Supervision or touching assist (CGA). [place] provide cues , steadying assist 3 The helper provides less than half the effort to complete the activity 2 The helper provides more than half the effort to complete the activity 1 Dependent. The helper does all the effort to complete an activity 7 Patient refused to complete or attempt activity 9 The patient did not perform the activity before the current illness or injury 88 Not attempted due to Medical conditions or safety concerns Transfers (B, C, W/C) (FIM): 4 Scootin Rollin Roll Left to Right (QC): 5 Supine to/from Sit: 5 Sit to/from Stand: 4 Sit to Lying (QC): 5 Sit to Stand (QC): 4 Chair/Ubs-ef-Evkdi Xfer(QC): 4 Car Transfer (QC): 5 Gait Training Does the Patient Walk?: Yes Gait (FIM): 2 Distance (FIM): 4=318-79 ft Distance: 75' x 2 Walk 10 feet (QC): 4 Walk 50 ft with 2 Turns(QC): 4 Walk 150 ft (QC): 4 Walking 10ft/uneven surface-QC: 4 Gait Level of Assist: 4 Gait Persons Needed: 1 Gait Assistive Device: FWW Wheelchair Training Does the Pt Use a Wheelchair?: Yes Distance: See PT goals Stair Training Stair Training: Handrails/: uses walker Stairs (FIM): 1 #of Steps: 1 1 Step (curb) (QC): 4 4 Steps (QC): 9 12 Steps (QC): 9 Stairs: Pattern: Step to Level of Assist: 4 Mental Status/Objective Comprehension: 6 Expression: 5 Social Interaction: 6 Problem Solvin Memory: 4 ADL-Treatment Bathin Shower/Bathe Self (QC): 2 Upper Extremity Dressin Upper Body Dressing (QC): 2 Lower Extremity Dressin Lower Body Dressing (QC): 2 On/Off Footwear (QC): 2 Shower: 4 Assessment/Plan Assessment and Plan Assess & Plan/Chief Complaint Assessment: Critical illness myopathy Type 1 diabetes Poorly controlled diabetes mellitus Cachexia Elevated troponin PEG tube in place Trach in place Brittle diabetes Plan: Minimize hypoglycemia by checking blood sugar checks every 2 hours and modified sliding scale to prevent hypoglycemia PEG tube feedings Intensive rehab with therapies Monitor closely Change tube feeding formulation Psych consult (1) Myopathy (2) PEG (percutaneous endoscopic gastrostomy) status (3) Altered mental status (4) DKA (diabetic ketoacidoses) (5) Acute pancreatitis (6) Cachexia (7) Diabetic ketoacidosis (8) Anemia (9) Leukocytosis (10) Respiratory failure (11) Electrolyte imbalance (12) Pneumonia (13) Decubitus ulcer, heel (14) Poorly controlled diabetes mellitus (15) Tracheostomy in place (16) Increased ammonia level STEVAN BURGOS DO May 23, 2019 09:55
[2019-05-23] MEDS: METOCLOPRAMIDE 10MG/10ML ORAL SOL(REGLAN) UDC PEG SCH ×3 (09:58→21:56)
[2019-05-23] MEDS: ENOXAPARIN 30 MG/0.3 ML (LOVENOX) SYR SC SCH (09:59)
[2019-05-23] MEDS: ANIDULAFUNGIN INJECTION 200 MG in NS (IVPB) 250 ML IV SCH (10:03)
--- NOTE | 2019-05-23 10:52 | NUR ---
WINDLACE MACHINE OPERATOR met with patient to complete initial assessment. Patient was alert and oriented and agreeable to assessment. Patient admitted to ARU from internally with debility following prolonged hospitalization and diagnosis of Critical Illness Myopathy. Patient originally admitted to [facility] on April 22 with pneumonia and DKA which tend led to the need for intubation, vent support and tube feeding. Patient presents to ARU with a capped trach, tube feeding via peg and weakness. Prior to hospitalization patient resided alone in his own home; however, he intends to stay at his mother's home in [place] upon ARU discharge. His mother's home is one level and data entry representative. 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 Primary contact identified as patient's mother, Irasema at [phone] who works evening hours and secondary contact listed as Father Toribio of [place] at [phone]. Patient does not have a PCP. WINDLACE MACHINE OPERATOR will assist patient in establishing with a provider. Patient previously was insured through employer; however, since he has been off work for so long, the company terminated the policy. Patient has applied for [facility] financial assistance and disability. Disability phone interview scheduled for May. If approved for disability, patient can proceed with submitting a [facility] application. WINDLACE MACHINE OPERATOR reviewed typical ARU length of stay and weekly team conferences with patient, patient expresses no concerns, but is hopeful to discharge [facility] as he has been hospitalized for over a month. WINDLACE MACHINE OPERATOR will continue to follow.
--- NOTE | 2019-05-23 11:36 | Occupational Ther Daily Note ---
OT Current Status-Daily Note Subjective Pt. winces with pain when sitting on side of bed. Is able to nod that his coccyx area is sore. Does not report pain level. OT obtains a roho cushion for pt. Appearance Pt. in bed. Asleep but wakes easily and agrees to work with OT. Mental Status/Objective Patient Orientation: Person, Place, Time, Situation Therapy Code Descriptions/Definitions Functional [place] Measure: 0=Not Assessed/NA 4=Minimal Assistance 1=Total Assistance 5=Supervision or Setup 2=Maximal Assistance 6=Modified [place] 3=Moderate Assistance 7=Complete [place] Attachments: IV ADL-Treatment Therapy Code Descriptions/Definitions Functional [place] Measure: 0=Not Assessed/NA 4=Minimal Assistance 1=Total Assistance 5=Supervision or Setup 2=Maximal Assistance 6=Modified [place] 3=Moderate Assistance 7=Complete [place] Therapy Quality Codes: 6 Independent with activity with or without an assistive device 5 Patient requires set up or clean up by helper. Patient completes activity by themselves 4 Supervision or touching assist (CGA). [place] provide cues , steadying assist 3 The helper provides less than half the effort to complete the activity 2 The helper provides more than half the effort to complete the activity 1 Dependent. The helper does all the effort to complete an activity 7 Patient refused to complete or attempt activity 9 The patient did not perform the activity before the current illness or injury 88 Not attempted due to Medical conditions or safety concerns Upper Body (FIM): 5 Upper Body Dressing (QC): 4 Lower Body Dressing (FIM): 5 (Slipper socks only. Pt. does not have tennis shoes currently.) Lower Body Dressing (QC): 4 On/Off Footwear (QC): 4 Transfers (B, C, W/C) (FIM): 4 Other Treatment Pt. requires multiple rest breaks throughout treatment. Transfers to side of bed with min assist. Dons shirt and slipper socks with increased time needed. Ambulates with walker to therapy gym, with slow gait and cues to keep walker directly in front of him. Pt. fatigues quite easily. In gym, tolerated bilateral UE AROM exercises x 10 reps x 5 exercises in all planes. Pt. fatigues easily and then requires rest. Ambulated back to room with min assist, with one slight LOB. Transferred to bed with all needs met. Education OT Patient Education: Correct positioning, Exercise program, Modified ADL techniques, Progress toward Goal/Update tx plan, Purpose of tx/functional activities, Reviewed precautions, Rehab process, Transfer techniques Teaching Recipient: Patient Teaching Methods: Demonstration, Discussion Response to Teaching: Verbalize Understanding, Return Demonstration OT Short Term Goals Short Term Goals Time Frame: Jun 05, 2019 Eating(FIM): 5 Grooming(FIM): 4 Bathing(FIM): 3 Upper Body Dressing(FIM): 4 Lower Body Dressing(FIM): 3 Toileting(FIM): 4 Transfers (B,C,W/C) (FIM): 5 Toilet/Commode Transfer(FIM): 5 Shower Transfer(FIM): 5 1=Demonstrate adherence to instructed precautions during ADL tasks. 2=Patient will verbalize/demonstrate understanding of assistive devices/modifications for ADL. 3=Patient will improve strength/tolerance for activity to enable patient to perform ADL's. OT Street Light Servicer Supervisor Goals Skilled Nursing Goals Time Frame: Jun 19, 2019 Eating (FIM): 6 Eating (QC): 6 Groomin Oral Hygiene (QC): 6 Bathing(FIM): 5 Shower/Bathe Self (QC): 5 Upper Body Dressing(FIM): 6 Upper Body Dressing (QC): 6 Lower Body Dressing(FIM): 6 Lower Body Dressing (QC): 6 On/Off Footwear (QC): 6 Toileting(FIM): 6 Toileting Hygiene (QC): 6 Transfers (B,C,W/C) (FIM): 6 Toilet/Commode Transfer(FIM): 6 Toilet/Commode Transfer (QC): 6 Shower Transfer(FIM): 5 Additional Goals: 1-Demonstrate ADL Tasks, 2-Verbalize Understanding, 3- ImproveStrength/Cory 1=Demonstrate adherence to instructed precautions during ADL tasks. 2=Patient will verbalize/demonstrate understanding of assistive devices/modifications for ADL. 3=Patient will improve strength/tolerance for activity to enable patient to perform ADL's. OT Education/Plan Problem List/Assessment Assessment: Decreased Activ Tolerance, Decreased UE Strength, Dependent Transfers, Impaired Bed Mobility, Impaired Funct Balance, Impaired I ADL's, Impaired Self-Care Skills Discharge Recommendations Plan/Recommendations: Continue POC Treatment Plan/Plan of Care Treatment,Training & Education: Yes Patient would benefit from OT for education, treatment and training to promote independence in ADL's, mobility, safety and/or upper extremity function for ADL's. Plan of Care: ADL Retraining, Functional Mobility, Group Exercise/Act as Ind, UE Funct Exercise/Act Treatment Duration: Jun 19, 2019 Frequency: At least 5 of 7 days/Wk (IRF) Estimated Hrs Per Day: 1.5 hours per day Agreement: Yes Rehab Potential: Good Time/GCodes Start Time: 08:15 Stop Time: 08:55 Total Time Billed (hr/min): 40 Billed Treatment Time 1, ADL x 10minutes, Ex x 15minutes, FA x 15minutes JUNG LAMB OT May 23, 2019 11:36
--- NOTE | 2019-05-23 12:03 | Physical Therapy Daily Note ---
PT Daily Note-Current Subjective Patient is in bed with sitter present. Agrees to PT. Pain Numeric Pain Scale: 0-No Pain Location: No Pain Reported Mental Status Patient Orientation: Normal For Age Attachments: PEG Tube, IV Transfers Therapy Code Descriptions/Definitions Functional [place] Measure: 0=Not Assessed/NA 4=Minimal Assistance 1=Total Assistance 5=Supervision or Setup 2=Maximal Assistance 6=Modified [place] 3=Moderate Assistance 7=Complete [place] Therapy Quality Codes: 6 Independent with activity with or without an assistive device 5 Patient requires set up or clean up by helper. Patient completes activity by themselves 4 Supervision or touching assist (CGA). [place] provide cues , steadying assist 3 The helper provides less than half the effort to complete the activity 2 The helper provides more than half the effort to complete the activity 1 Dependent. The helper does all the effort to complete an activity 7 Patient refused to complete or attempt activity 9 The patient did not perform the activity before the current illness or injury 88 Not attempted due to Medical conditions or safety concerns Transfers (B, C, W/C) (FIM): 5 Scootin Rollin Roll Left to Right (QC): 6 Supine to/from Sit: 6 Sit to/from Stand: 5 Sit to Lying (QC): 6 Sit to Stand (QC): 5 Chair/Lww-yg-Rjoqp Xfer(QC): 5 Bed to/from Chair: 5 Weight Bearing Right Lower Extremity: Right Full Weight Bearing Left Lower Extremity: Left Full Weight Bearing Gait Training Does the Patient Walk?: Yes Gait (FIM): 4 Distance (FIM): 3=150 ft Distance: 150' x 4 Walk 10 feet (QC): 4 Walk 50 ft with 2 Turns(QC): 4 Walk 150 ft (QC): 4 Gait Level of Assist: 4 Gait Persons Needed: 1 Gait Assistive Device: FWW extended UE's with FWW use, slow, steady gait sequence with right foot drop Exercises Supine Ex: Ankle pumps, Quad Set, Heel Slides, Straight leg raise Supine Reps: 10 Seated Therapy Exercises: Ankle pumps, Long arc quads Seated Reps: 15 (3 sets) NuStep Minutes: 20 NuStep Workload: 5 (to increase strength and functional mobility) Assessment Patient improving with treatment plan. He does voice frustration with right foot drop, however, does display trace MMT with attempt. PT to increase activity as tolerated by patient. PT Short Term Goals Short Term Goals Time Frame: Jun 07, 2019 Transfers (B,C,W/C) (FIM): 5 Gait (FIM): 5 Distance (FIM): 3=150 ft Gait Distance Comment: 200' Gait Level of Assist: 5 Gait Assistive Device: FWW Wheelchair Distance: See PT goals PT Asphalt Distributor Tender Goals Asphalt Distributor Tender Goals PT Snf Goals Time Frame: Jun 17, 2019 Transfers (B,C,W/C) (FIM): 6 Sit to Lying (QC): 6 Lying-Sitting on Side/Bed(QC): 6 Sit to Stand (QC): 6 Rollin Roll Left to Right (QC): 6 Chair/Hdf-xv-Yloqd Xfer(QC): 6 Car Transfer (QC): 6 Does the Patient Walk: Yes Gait (FIM): 6 Gait distance (FIM): 3=150 ft Distance: >300' Walk 10 feet (QC): 6 Walk 10ft-Uneven Surface(QC): 6 Walk 50ft with 2 Turns (QC): 6 Walk 150 ft (QC): 6 Gait Level of Assist: 6 Gait Assistive Device: None, FWW Stairs (FIM): 6 # of Steps: 12 1 Step (curb) (QC): 6 4 Steps (QC): 6 12 Steps (QC): 6 Stairs Level Of Assist: 6 Picking up an Object (QC): 6 PT Plan Treatment/Plan Treatment Plan: Continue Plan of Care Treatment Plan: Bed Mobility, Education, Functional Activity Cory, Functional Strength, Gait, Safety, Therapeutic Exercise, Transfers Treatment Duration: Jun 17, 2019 Frequency: At least 5 of 7 days/Wk (IRF) Estimated Hrs Per Day: 1.5 hours per day Patient and/or Family Agrees t: Yes Time/GCodes Time In: 1055 Time Out: 1200 Total Billed Treatment Time: 65 Total Billed Treatment 1 visit GT x 2 30 min EX x 2 35 min REGIS CHOWDARY PT May 23, 2019 12:03
[2019-05-23 12:05] VITALS: BP 110/71
[2019-05-23] MEDS ORDERED: inSUlin ASPART (NovoLOG) 1 UNIT/0.01 ML (CHARGE PER UNIT) SC SCH (14:00)
--- NOTE | 2019-05-23 14:51 | Occupational Ther Daily Note ---
OT Current Status-Daily Note Subjective Pt. does not report pain level. Appearance Pt. in bed on phone. Agrees to work with OT. Mental Status/Objective Patient Orientation: Person, Place, Time, Situation Therapy Code Descriptions/Definitions Functional [place] Measure: 0=Not Assessed/NA 4=Minimal Assistance 1=Total Assistance 5=Supervision or Setup 2=Maximal Assistance 6=Modified [place] 3=Moderate Assistance 7=Complete [place] ADL-Treatment Therapy Code Descriptions/Definitions Functional [place] Measure: 0=Not Assessed/NA 4=Minimal Assistance 1=Total Assistance 5=Supervision or Setup 2=Maximal Assistance 6=Modified [place] 3=Moderate Assistance 7=Complete [place] Therapy Quality Codes: 6 Independent with activity with or without an assistive device 5 Patient requires set up or clean up by helper. Patient completes activity by themselves 4 Supervision or touching assist (CGA). [place] provide cues , steadying assist 3 The helper provides less than half the effort to complete the activity 2 The helper provides more than half the effort to complete the activity 1 Dependent. The helper does all the effort to complete an activity 7 Patient refused to complete or attempt activity 9 The patient did not perform the activity before the current illness or injury 88 Not attempted due to Medical conditions or safety concerns Transfers (B, C, W/C) (FIM): 4 (CGA to ambulate with walker to therapy gym.) Pt. agrees to work with OT. Transferred supine-sit with min assist. Ambulated to therapy gym with CGA and cues for walker safety. Pt. tolerated 5 minutes on arm bike at min resistance to work on endurance and strength. Pt. then tolerated series of fine motor coordination tasks with nut/bolt activity, cards, and small therapy clothespins. Noted weakness overall in bilateral hands and arms, and coordination impaired due to this. Pt. does fatigue easily and requires encouragement. Pt. ambulated back to room and all needs met. Education OT Patient Education: Correct positioning, Exercise program, Modified ADL techniques, Progress toward Goal/Update tx plan, Purpose of tx/functional activities, Reviewed precautions, Rehab process, Transfer techniques Teaching Recipient: Patient Teaching Methods: Demonstration, Discussion Response to Teaching: Verbalize Understanding, Return Demonstration OT Short Term Goals Short Term Goals Time Frame: Jun 05, 2019 Eating(FIM): 5 Grooming(FIM): 4 Bathing(FIM): 3 Upper Body Dressing(FIM): 4 Lower Body Dressing(FIM): 3 Toileting(FIM): 4 Transfers (B,C,W/C) (FIM): 5 Toilet/Commode Transfer(FIM): 5 Shower Transfer(FIM): 5 1=Demonstrate adherence to instructed precautions during ADL tasks. 2=Patient will verbalize/demonstrate understanding of assistive devices/mod ifications for ADL. 3=Patient will improve strength/tolerance for activity to enable patient to perform ADL's. OT [facility] Goals Concrete Batching Plant Operator Goals Time Frame: Jun 19, 2019 Eating (FIM): 6 Eating (QC): 6 Groomin Oral Hygiene (QC): 6 Bathing(FIM): 5 Shower/Bathe Self (QC): 5 Upper Body Dressing(FIM): 6 Upper Body Dressing (QC): 6 Lower Body Dressing(FIM): 6 Lower Body Dressing (QC): 6 On/Off Footwear (QC): 6 Toileting(FIM): 6 Toileting Hygiene (QC): 6 Transfers (B,C,W/C) (FIM): 6 Toilet/Commode Transfer(FIM): 6 Toilet/Commode Transfer (QC): 6 Shower Transfer(FIM): 5 Additional Goals: 1-Demonstrate ADL Tasks, 2-Verbalize Understanding, 3- ImproveStrength/Cory 1=Demonstrate adherence to instructed precautions during ADL tasks. 2=Patient will verbalize/demonstrate understanding of assistive devices/modifications for ADL. 3=Patient will improve strength/tolerance for activity to enable patient to perform ADL's. OT Education/Plan Problem List/Assessment Assessment: Decreased Activ Tolerance, Decreased UE Strength, Impaired Coordination, Impaired Funct Balance, Impaired I ADL's, Impaired Self-Care Skills Discharge Recommendations Plan/Recommendations: Continue POC Therapy D/C Recommendations: Home w/ Family Support, Occupational Therapy Home Care, Scheduled Assistance Treatment Plan/Plan of Care Treatment,Training & Education: Yes Patient would benefit from OT for education, treatment and training to promote independence in ADL's, mobility, safety and/or upper extremity function for ADL's. Plan of Care: ADL Retraining, Functional Mobility, Group Exercise/Act as Ind, UE Funct Exercise/Act Treatment Duration: Jun 19, 2019 Frequency: At least 5 of 7 days/Wk (IRF) Estimated Hrs Per Day: 1.5 hours per day Agreement: Yes Rehab Potential: Good Time/GCodes Start Time: 12:55 Stop Time: 13:45 Total Time Billed (hr/min): 50 Billed Treatment Time 1, Ex x 15minutes, FA x 35minutes JUNG LAMB OT May 23, 2019 14:51
--- NOTE | 2019-05-23 15:00 | Physical Therapy Daily Note ---
PT Daily Note-Current Subjective Patient is in bed and agrees to PT. Mental Status Patient Orientation: Normal For Age Attachments: PEG Tube Transfers Therapy Code Descriptions/Definitions Functional [place] Measure: 0=Not Assessed/NA 4=Minimal Assistance 1=Total Assistance 5=Supervision or Setup 2=Maximal Assistance 6=Modified [place] 3=Moderate Assistance 7=Complete [place] Therapy Quality Codes: 6 Independent with activity with or without an assistive device 5 Patient requires set up or clean up by helper. Patient completes activity by themselves 4 Supervision or touching assist (CGA). [place] provide cues , steadying assist 3 The helper provides less than half the effort to complete the activity 2 The helper provides more than half the effort to complete the activity 1 Dependent. The helper does all the effort to complete an activity 7 Patient refused to complete or attempt activity 9 The patient did not perform the activity before the current illness or injury 88 Not attempted due to Medical conditions or safety concerns Transfers (B, C, W/C) (FIM): 5 Scootin Rollin Roll Left to Right (QC): 5 Supine to/from Sit: 6 Sit to/from Stand: 5 Sit to Lying (QC): 5 Sit to Stand (QC): 5 Chair/Hrx-pi-Mlbhj Xfer(QC): 5 Bed to/from Chair: 5 Weight Bearing Right Lower Extremity: Right Full Weight Bearing Left Lower Extremity: Left Full Weight Bearing Gait Training Does the Patient Walk?: Yes Gait (FIM): 4 Distance (FIM): 3=150 ft Distance: 200'/150' Walk 10 feet (QC): 4 Walk 50 ft with 2 Turns(QC): 4 Walk 150 ft (QC): 4 Gait Level of Assist: 4 Gait Assistive Device: FWW CGA for safety/much improved balance Exercises Supine Ex: Bridging, Ankle pumps, Quad Set, Heel Slides, Straight leg raise Supine Reps: 10 Assessment Patient rolled side to side and was able to cough up a great amount of sputum. RN notified. Patient tolerated treatment well and returned to room with sitter. PT Short Term Goals Short Term Goals Time Frame: Jun 07, 2019 Transfers (B,C,W/C) (FIM): 5 Gait (FIM): 5 Distance (FIM): 3=150 ft Gait Distance Comment: 200' Gait Level of Assist: 5 Gait Assistive Device: FWW Wheelchair Distance: See PT goals PT Intermediate Goals Patient Account Liaison Goals PT Patient Account Liaison Goals Time Frame: Jun 17, 2019 Transfers (B,C,W/C) (FIM): 6 Sit to Lying (QC): 6 Lying-Sitting on Side/Bed(QC): 6 Sit to Stand (QC): 6 Rollin Roll Left to Right (QC): 6 Chair/Dei-cj-Yytzu Xfer(QC): 6 Car Transfer (QC): 6 Does the Patient Walk: Yes Gait (FIM): 6 Gait distance (FIM): 3=150 ft Distance: >300' Walk 10 feet (QC): 6 Walk 10ft-Uneven Surface(QC): 6 Walk 50ft with 2 Turns (QC): 6 Walk 150 ft (QC): 6 Gait Level of Assist: 6 Gait Assistive Device: None, FWW Stairs (FIM): 6 # of Steps: 12 1 Step (curb) (QC): 6 4 Steps (QC): 6 12 Steps (QC): 6 Stairs Level Of Assist: 6 Picking up an Object (QC): 6 PT Plan Treatment/Plan Treatment Plan: Continue Plan of Care Treatment Plan: Bed Mobility, Education, Functional Activity Cory, Functional Strength, Gait, Safety, Therapeutic Exercise, Transfers Treatment Duration: Jun 17, 2019 Frequency: At least 5 of 7 days/Wk (IRF) Estimated Hrs Per Day: 1.5 hours per day Patient and/or Family Agrees t: Yes Time/GCodes Time In: 1420 Time Out: 1455 Total Billed Treatment Time: 35 Total Billed Treatment 1 visit EX 16 min GT 19 min REGIS COHWDARY PT May 23, 2019 15:00
[2019-05-23 15:29] VITALS: BP 116/19
--- NOTE | 2019-05-23 16:12 | Pulmonary Progress Note ---
Sepsis Event Evaluation Height, Weight, BMI Height: 5'" Weight: 106lbs. 11.2oz. 48.537916sx; 15.0 BMI Method:Stated Exam Exam Vital Signs Date Time Temp Pulse Resp B/P (MAP) Pulse Ox O2 Delivery O2 Flow Rate FiO2 05/23/19 15:29 97.9 96 18 116/19 (51) 94 Room Air 05/23/19 15:02 94 Room Air 05/23/19 12:05 97.6 104 22 110/71 (84) 95 Room Air 05/23/19 07:16 97 Nasal Cannula 2.00 05/23/19 07:06 97.1 93 20 118/79 (92) 96 Nasal Cannula 2.00 05/23/19 04:24 97.1 90 16 120/82 (95) 98 Nasal Cannula 2.00 05/23/19 02:43 Nasal Cannula 2.00 05/23/19 00:56 98.2 110 18 129/86 (100) 98 Nasal Cannula 2.00 05/22/19 23:00 93 Nasal Cannula 2.00 05/22/19 21:55 Nasal Cannula 2.00 05/22/19 20:45 112 114/74 (87) 05/22/19 19:11 98.1 115 20 112/70 (84) 92 Nasal Cannula 2.00 05/22/19 18:37 87 Room Air 05/22/19 18:16 110 22 113/76 (88) 93 Room Air I & O 05/23/19 07:00 Intake Total 1300 ml Output Total 1500 ml Balance -200 ml Height & Weight Height: 5'.00" Weight: 106lbs. 11.2oz. 48.753960js; 15.0 BMI Method:Stated General Appearance: WD/WN, Anxious, Chronically ill, Cachetic HEENT: PERRL/EOMI, Normal ENT Inspection, Pharynx Normal, Moist Mucous Membranes, Other Neck: Full Range of Motion, Normal Inspection, Non Tender, Supple, Other (trach in place) Respiratory: Chest Non Tender, No Accessory Muscle Use, No Respiratory Distress, Crackles, Decreased Breath Sounds, Wheezing Cardiovascular: Regular Rate, Rhythm, No Edema, No Gallop, No JVD, No Murmur Extremity: Normal Capillary Refill, Normal Inspection, Normal Range of Motion, Non Tender, No Calf Tenderness, No Pedal Edema Neurologic/Psychiatric: Alert, Oriented x3, No Motor/Sensory Deficits, Normal Mood/Affect Skin: Normal Color, Warm/Dry Lymphatic: No Adenopathy Results Lab Laboratory Tests 05/23/19 06:25 Assessment/Plan Assessment/Plan Acute respiratory failure with ARDS s/p aspiration -Pt's trach tube has been capped x 2 days now. -Will probably d/c tracheostomy this week. - inpatient rehab -PEG tube -Continue Jevity - 65cc/hr. -- -Will need repeat swallow eval and slowly introduce dysphagia diet. -multivitamin Candidiasis bacteremia - repeat cultures are neg thus far 05/11 and 05/13 -- Eraxis to 200mg daily -Repeat blood and sputum cultures 05/13 -D/C PICC and art line and culture tips 05/13 -Ct of chest Abd and Pelvis 05/13 with IV contrast and contrast via PEG - reviewed -Repeat echocardiogram - No vegitation. EF 50-55% -Vancomycin restarted after cultures obtained 05/13 -Leukocytosis started to rise after discontinuation of Vanco on 05/11 and then started to improve after restarting Vanco on 05/13 PNA with sepsis and recurrent aspiration -Now off Abx. Continue Eraxis -Vancomycin d/c'd 05/11 - will restarted 05/13 Decubitus ulcer -Pressure injuries of sacrum, L heel and L ear. -Wound care consulted IDDM -Monitor BS Gastric Ileus - improved with Jevity -Reglan Pneumomediastinum- resolved Debility/weakness -PT/OT -Pt is getting up to chair for most of the day Cardiomyopathy - now resolved -Cardiology following Anemia -Monitor -Occult stool is positive. FREDI MAYORGA DO May 23, 2019 16:12
--- NOTE | 2019-05-23 16:34 | Speech Therapy Daily Note ---
Speech Daily Progress Note Subjective Date Seen by Provider: May 23, 2019 Time Seen by Provider: 00:30 The patient was resting in his bed when I entered his room. Objective The patient completed general information questions with 85% accuracy given minimal verbal cues. Assessment Assessment Current Status: Good Progress Treatment Plan Continue Plan of Care Communication Comprehension: 6 Expression: 5 Social Cognition Social Interaction: 6 Problem Solvin Memory: 4 Speech Short Term Goals Short Term Goals Short Term Goals 1) The patient will complete memory tasks related to his daily needs at 90% or greater. 2) The patient will complete problem solving tasks related to his daily needs at 90% or greater. 3) The patient will complete safety awareness tasks related to his daily needs at 90% or greater. Speech Senior Care Goals Box Car Loader Goals The patient will improve safety awareness and independence in order to return home safely. Speech-Plan Patient/Family Goals Patient/Family Goals: The patient plans on returning home post rehab. Treatment Plan Speech Therapy Treatment Plan: Continue Plan of Care Patient is expected to make good progress. Treatment Duration: Jun 02, 2019 Frequency: 5 times per week Estimated Hrs Per Day: .5 hour per day Rehab Potential: Good Barriers to Learning: Patient has a complex medical status for the past 5 weeks. Pt/Family Agrees to Plan: Yes Safety Risks/Education Teaching Recipient: Patient Teaching Methods: Discussion Response to Teaching: Verbalize Understanding Education Topics Provided: Safety within his room. Time Speech Therapy Time In: 16:00 Speech Therapy Time Out: 16:30 Total Billed Time: 30 Billed Treatment Time 1SHAJI BETHAN[address] ST May 23, 2019 16:34
[2019-05-23 19:38] VITALS: BP 113/72
[2019-05-24] VITALS: BP 113/78
[2019-05-24] MEDS: inSUlin ASPART (NovoLOG) 1 UNIT/0.01 ML (CHARGE PER UNIT) SC SCH ×4 (00:25→06:39)
[2019-05-24] MEDS: meTOprolol TARTRATE 50 MG (LOPRESSOR) TAB PEG SCH ×3 (00:25→12:00)
[2019-05-24] MEDS: RT-ALBUTEROL/IPRATROPIUM 3 ML (DUONEB) VIAL INH SCH ×3 (03:13→10:51)
[2019-05-24 04:00] VITALS: BP 109/75
[2019-05-24] MEDS: MULTIVITAMINS LIQUID 15 ML UDC PO SCH (06:39)
[2019-05-24] MEDS: LACTOBACILLUS ACIDOPHILUS (PROBIOTIC) CAPSULE PO SCH (06:39)
[2019-05-24 06:45] LABS: HEMOGLOBIN 11.4 G/DL (13.3-17.7); RED CELL DISTRIBUTION WIDTH 13.3 % (10.0-14.5); WHITE BLOOD COUNT 12.8 10^3/uL (4.3-11.0)
[2019-05-24] MEDS ORDERED: TROUGH ORDER-PHARMACY XX NR (07:00)
[2019-05-24 07:11] LABS: ALANINE AMINOTRANSFERASE 26 U/L (0-55); ALBUMIN 3.4 GM/DL (3.2-4.5); ALKALINE PHOSPHATASE 178 U/L (40-136); BILIRUBIN,TOTAL 0.4 MG/DL (0.1-1.0); BUN/CREATININE RATIO 37; CALCIUM 10.7 MG/DL (8.5-10.1); CARBON DIOXIDE 26 MMOL/L (21-32); CHLORIDE 99 MMOL/L (98-107); CREATININE SERUM 0.68 MG/DL (0.60-1.30); GFR ESTIMATED > 60; GLUCOSE 161 MG/DL (70-105); SODIUM 140 MMOL/L (135-145)
[2019-05-24] MEDS ORDERED: NS IV 1000 ML 1,000 ML ONE (07:22)
[2019-05-24 07:26] VITALS: BP 84/54
[2019-05-24] MEDS ORDERED: NS IV 1000 ML 1,000 ML IV SCH (07:30)
--- NOTE | 2019-05-24 07:33 | NUR ---
Dr. Tovar notified early am about new onset tachycardia 142. Orders received for labs, cardiac consult, and telemetry. Dr. White vice president of consulting services for [facility]. EKG results reported to Dr. White. Reported to next shift.
--- NOTE | 2019-05-24 07:35 | NUR ---
Nurses alerted by OUTSOLE SCHEDULER sitting with patient that Patient reporting that he did not feel "right". Tachycardia continues. Blood Pressure 84/53. Dr. Alonzo notified by phone immediately. Orders received for [address] Tovar notified of new orders and patient status. Bolus administered, Blood Pressure monitored closely. Blood Pressure increased slightly, patient continues to by tachycardic. This nurse requested that therapy be held until Dr. Tovar assesses patient.
[2019-05-24] MEDS ORDERED: meTOprolol 5 MG/5 ML (LOPRESSOR) VIAL IV NR (09:30)
--- NOTE | 2019-05-24 09:38 | PM&R Progress Note ---
Subjective HPI/CC On Admission Date Seen by Provider: May 24, 2019 Time Seen by Provider: 09:15 Chief complaint: Critical illness myopathy History of present illness: This is a 18-year-old white male with a past medical history of type 1 diabetes who was admitted 31 days ago from the ER with critical illness requiring ventilator dependence and insulin drip with multiple attempts to extubate which were unsuccessful and subsequently required trach placement in addition to PEG tube placement who presents to inpatient rehab unit clinically stable and much improved and no longer critically ill but has a BMI of 15 and such severe weakness he will need aggressive rehab and therapy in order to regain any type of function. 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 He is status post several weeks of antibiotics in addition to antifungals and currently being monitored by pulmonology for severe pulmonary disease brought on by long-term ventilator support. Blood sugars have been very labile including multiple hypoglycemic episodes so will minimize the amount of insulin considering weight loss of 60 pounds over the last couple of months indicating the weight loss started a month before this critical illness currently as a result of noncompliance with insulin administration. Previously he was independent of ADLs and full-time worker as a industrial welder and was ambulating without assistive device. Subjective/Events-last exam See DC note After rounds RN spoke to resourcing advisor at my request and we have changed the TF to less carbs that had been changed to this formulation due to increased residuals so will monitor that closely but considering he is still have residuals we will be able to manage his diabetes a lot easier if we change formulations Objective Exam Vital Signs Vital Signs Date Time Temp Pulse Resp B/P (MAP) Pulse Ox O2 Delivery O2 Flow Rate FiO2 05/24/19 13:00 148 05/24/19 11:38 98.1 22 95/65 (75) 94 Room Air 05/23/19 09:00 2.00 Capillary Refill : General Appearance: No Apparent Distress, WD/WN, Anxious, Chronically ill, Cachetic HEENT: PERRL/EOMI, Normal ENT Inspection, Pharynx Normal, Moist Mucous Membranes, Other Neck: Full Range of Motion, Normal Inspection, Non Tender, Supple, Other (trach in place) Respiratory: Chest Non Tender, No Accessory Muscle Use, No Respiratory Distress, Crackles, Decreased Breath Sounds, Wheezing Cardiovascular: Regular Rate, Rhythm, No Edema, No Gallop, No JVD, No Murmur Gastrointestinal: Normal Bowel Sounds, No Organomegaly, No Pulsatile Mass, Non Tender, Soft, Other (peg in place) Back: Normal Inspection, No CVA Tenderness, No Vertebral Tenderness Extremity: Normal Capillary Refill, Normal Inspection, Normal Range of Motion, Non Tender, No Calf Tenderness, No Pedal Edema Neurologic/Psychiatric: Alert, Oriented x3, No Motor/Sensory Deficits, Normal Mood/Affect Skin: Normal Color, Warm/Dry Lymphatic: No Adenopathy Results/Procedures Lab Laboratory Tests 05/24/19 06:20 Patient resulted labs reviewed. FIM Transfers Therapy Code Descriptions/Definitions Functional [place] Measure: 0=Not Assessed/NA 4=Minimal Assistance 1=Total Assistance 5=Supervision or Setup 2=Maximal Assistance 6=Modified [place] 3=Moderate Assistance 7=Complete [place] Therapy Quality Codes: 6 Independent with activity with or without an assistive device 5 Patient requires set up or clean up by helper. Patient completes activity by themselves 4 Supervision or touching assist (CGA). [place] provide cues , steadying assist 3 The helper provides less than half the effort to complete the activity 2 The helper provides more than half the effort to complete the activity 1 Dependent. The helper does all the effort to complete an activity 7 Patient refused to complete or attempt activity 9 The patient did not perform the activity before the current illness or injury 88 Not attempted due to Medical conditions or safety concerns Transfers (B, C, W/C) (FIM): 5 Scootin Rollin Roll Left to Right (QC): 5 Supine to/from Sit: 6 Sit to/from Stand: 5 Sit to Lying (QC): 5 Sit to Stand (QC): 5 Chair/Wpg-hq-Zzroq Xfer(QC): 5 Bed to/from Chair: 5 Car Transfer (QC): 5 Gait Training Does the Patient Walk?: Yes Gait (FIM): 4 Distance (FIM): 3=150 ft Distance: 200'/150' Walk 10 feet (QC): 4 Walk 50 ft with 2 Turns(QC): 4 Walk 150 ft (QC): 4 Walking 10ft/uneven surface-QC: 4 Gait Level of Assist: 4 Gait Persons Needed: 1 Gait Assistive Device: FWW Wheelchair Training Does the Pt Use a Wheelchair?: Yes Distance: See PT goals Stair Training Stair Training: Handrails/: uses walker Stairs (FIM): 1 #of Steps: 1 1 Step (curb) (QC): 4 4 Steps (QC): 9 12 Steps (QC): 9 Stairs: Pattern: Step to Level of Assist: 4 Mental Status/Objective Comprehension: 6 Expression: 5 Social Interaction: 6 Problem Solvin Memory: 4 ADL-Treatment Bathin Shower/Bathe Self (QC): 2 Upper Extremity Dressin Upper Body Dressing (QC): 4 Lower Extremity Dressin (Slipper socks only. Pt. does not have tennis shoes currently.) Lower Body Dressing (QC): 4 On/Off Footwear (QC): 4 Shower: 4 Assessment/Plan Assessment and Plan Assess & Plan/Chief Complaint Assessment: Critical illness myopathy Type 1 diabetes Poorly controlled diabetes mellitus Cachexia Elevated troponin PEG tube in place Trach in place Brittle diabetes Plan: Minimize hypoglycemia by checking blood sugar checks every 2 hours and modified sliding scale to prevent hypoglycemia PEG tube feedings Intensive rehab with therapies Monitor closely Change tube feeding formulation Psych consult (1) Myopathy (2) PEG (percutaneous endoscopic gastrostomy) status (3) Altered mental status (4) DKA (diabetic ketoacidoses) (5) Acute pancreatitis (6) Cachexia (7) Diabetic ketoacidosis (8) Anemia (9) Leukocytosis (10) Respiratory failure (11) Electrolyte imbalance (12) Pneumonia (13) Decubitus ulcer, heel (14) Poorly controlled diabetes mellitus (15) Tracheostomy in place (16) Increased ammonia level STEVAN BURGOS DO May 24, 2019 09:38
[2019-05-24] MEDS: ANIDULAFUNGIN INJECTION 200 MG in NS (IVPB) 250 ML IV SCH (10:16)
[2019-05-24] MEDS: METOCLOPRAMIDE 10MG/10ML ORAL SOL(REGLAN) UDC PEG SCH (10:25)
[2019-05-24] MEDS: ENOXAPARIN 30 MG/0.3 ML (LOVENOX) SYR SC SCH (10:25)
--- NOTE | 2019-05-24 11:07 | Physical Therapy Progress Note ---
Therapy Progress Note Pt on hold at this time due to elevated HR and low BP. Will check pt later this date. YOLADNA PIZARRO PT May 24, 2019 11:06
[2019-05-24 11:38] VITALS: BP 95/65
--- NOTE | 2019-05-24 11:38 | Occ Therapy Progress Note ---
Therapy Progress Note Pt. asleep in room when OT entered. Sitter present. Pt. asleep and sitter reports that pt. did not sleep well last night. Sitter states that pt's HR has been high. OT assess and HR at 144. Nursing reports that pt. is on hold at this time for HR issues. Will continue to assess. 1, visit 0830 JUNG LAMB OT May 24, 2019 11:38
[2019-05-24] MEDS ORDERED: inSUlin ASPART (NovoLOG) 1 UNIT/0.01 ML (CHARGE PER UNIT) SC SCH (12:00)
[2019-05-24] MEDS ORDERED: LORazepam INJ 2 MG/ML (ATIVAN) VIAL IVP NR (12:15)
[2019-05-24] MEDS ORDERED: morphine INJ 4 MG/ML 1 ML (VIAL/SYRINGE) IVP NR (12:15)
--- NOTE | 2019-05-24 12:48 | Discharge Summary ---
Diagnosis/Chief Complaint Date of Admission May 22, 2019 at 13:23 Date of Discharge Discharge Diagnosis Assessment: Acute SVT with hypotension requiring admit to ICU Critical illness myopathy Type 1 diabetes Poorly controlled diabetes mellitus Cachexia Elevated troponin PEG tube in place Trach in place Brittle diabetes Plan: Minimize hypoglycemia by checking blood sugar checks every 2 hours and modified sliding scale to prevent hypoglycemia PEG tube feedings Intensive rehab with therapies Monitor closely Change tube feeding formulation Psych consult (1) Myopathy (2) PEG (percutaneous endoscopic gastrostomy) status (3) Altered mental status (4) DKA (diabetic ketoacidoses) (5) Acute pancreatitis (6) Cachexia (7) Diabetic ketoacidosis (8) Anemia (9) Leukocytosis (10) Respiratory failure (11) Electrolyte imbalance (12) Pneumonia (13) Decubitus ulcer, heel (14) Poorly controlled diabetes mellitus (15) Tracheostomy in place (16) Increased ammonia level Discharge Summary Discharge Physical Examination Allergies: Coded Allergies: No Known Drug Allergies (Unverified , 06/23/09) Vitals & I&Os Vital Signs Date Time Temp Pulse Resp B/P (MAP) Pulse Ox O2 Delivery O2 Flow Rate FiO2 05/24/19 13:00 148 05/24/19 11:38 98.1 22 95/65 (75) 94 Room Air 05/23/19 09:00 2.00 General Appearance: Alert Cardiovascular: Other (tachycardic) Hospital Course Was the Problem List Reviewed?: Yes Hospital course: Pt had a brief hospital course after he was admitted on the third day. He suffered significant tachycardia likely supraventricular tachycardia type. Dr. Alonzo was consulted, placed him on a fluid bolus due to BP of 80/50 and was assessed to be a junctional tachycardia. He was given Metoprolol IV, and therapy was held but he was unable to be successful in returning the heart rate to a normal level so he was transferred to the ICU. Behavioral health consult was present when Dr. Escobedo spoke to him and overall he desperately wants to go home and feels like inpatient rehab is a good option for him and we will work to stabilize him in the ICU to discharge him home and hopefully be able to remove the trach if his respiratory status remains stable and Dr. Alonzo alters medication for the tachycardia and therefore he would be able to be recovered at home. He did have significant improvement in blood sugars after tube feeding formulation was changed and overall he improved enough in therapy to have some benefit but required ICU transfer for sever tachycardia. Labs (last 24 hrs) Laboratory Tests 05/22/19 15:14: Glucometer 265H 05/22/19 17:37: Glucometer 49*L 05/22/19 17:50: Glucometer 49*L 05/22/19 18:08: Glucometer 77 05/22/19 18:31: Glucometer 104 05/22/19 19:04: Glucometer 319H 05/22/19 23:04: Glucometer 401*H 05/23/19 03:03: Glucometer 189H 05/23/19 06:25: White Blood Count 11.8H, Red Blood Count 3.95L, Hemoglobin 10.6L, Hematocrit 32L , Mean Corpuscular Volume 82, Mean Corpuscular Hemoglobin 27, Mean Corpuscular Hemoglobin Concent 33, Red Cell Distribution Width 13.2, Platelet Count 511H, Mean Platelet Volume 10.6H, Neutrophils (%) (Auto) 67, Lymphocytes (%) (Auto) 18, Monocytes (%) (Auto) 10, Eosinophils (%) (Auto) 4, Basophils (%) (Auto) 0, Neutrophils # (Auto) 7.9H, Lymphocytes # (Auto) 2.1, Monocytes # (Auto) 1.2H, Eosinophils # (Auto) 0.5H, Basophils # (Auto) 0.1, Sodium Level 137, Potassium Level 4.1, Chloride Level 98, Carbon Dioxide Level 27, Anion Gap 12, Blood Urea Nitrogen 18, Creatinine 0.68, Estimat Glomerular Filtration Rate > 60, BUN/Creatinine Ratio 26, Glucose Level 371H, Calcium Level 10.2H, Corrected Calcium 10.9H, Total Bilirubin 0.4, Aspartate Amino Transf (AST/SGOT) 15, Alanine Aminotransferase (ALT/SGPT) 22, Alkaline Phosphatase 161H, Total Protein 6.4, Albumin 3.1L 05/23/19 06:47: Glucometer 388H 05/23/19 11:47: Glucometer 412*H 05/23/19 13:44: Glucometer 495*H 05/23/19 15:15: Glucometer 338H 05/23/19 17:24: Glucometer 90 05/23/19 19:35: Glucometer 188H 05/23/19 21:29: Glucometer 230H 05/23/19 23:58: Glucometer 148H 05/24/19 01:55: Glucometer 140H 05/24/19 03:57: Glucometer 261H 05/24/19 05:56: Glucometer 190H 05/24/19 06:20: White Blood Count 12.8H, Red Blood Count 4.26L, Hemoglobin 11.4L, Hematocrit 35L , Mean Corpuscular Volume 82, Mean Corpuscular Hemoglobin 27, Mean Corpuscular Hemoglobin Concent 33, Red Cell Distribution Width 13.3, Platelet Count 596H, Mean Platelet Volume 11.0H, Sodium Level 140, Potassium Level 4.0, Chloride Level 99, Carbon Dioxide Level 26, Anion Gap 15H, Blood Urea Nitrogen 25H, Creatinine 0.68, Estimat Glomerular Filtration Rate > 60, BUN/Creatinine Ratio 37, Glucose Level 161H, Calcium Level 10.7H, Corrected Calcium 11.2H, Total Bilirubin 0.4, Aspartate Amino Transf (AST/SGOT) 18, Alanine Aminotransferase (ALT/SGPT) 26, Alkaline Phosphatase 178H, Total Protein 7.0, Albumin 3.4 05/24/19 06:25: Beta-Hydroxybutyrate (Chem panel) 0.13 05/24/19 07:32: Glucometer 137H 05/24/19 12:16: Glucometer 365H Pending Labs Laboratory Tests 05/22/19 15:14: Glucometer 265 05/22/19 17:37: Glucometer 49 05/22/19 17:50: Glucometer 49 05/22/19 18:08: Glucometer 77 05/22/19 18:31: Glucometer 104 05/22/19 19:04: Glucometer 319 05/22/19 23:04: Glucometer 401 05/23/19 03:03: Glucometer 189 05/23/19 06:25: White Blood Count 11.8, Red Blood Count 3.95, Hemoglobin 10.6, Hematocrit 32, Mean Corpuscular Volume 82, Mean Corpuscular Hemoglobin 27, Mean Corpuscular Hemoglobin Concent 33, Red Cell Distribution Width 13.2, Platelet Count 511, Mean Platelet Volume 10.6, Neutrophils (%) (Auto) 67, Lymphocytes (%) (Auto) 18, Monocytes (%) (Auto) 10, Eosinophils (%) (Auto) 4, Basophils (%) (Auto) 0, Neut rophils # (Auto) 7.9, Lymphocytes # (Auto) 2.1, Monocytes # (Auto) 1.2, Eosinophils # (Auto) 0.5, Basophils # (Auto) 0.1, Sodium Level 137, Potassium Level 4.1, Chloride Level 98, Carbon Dioxide Level 27, Anion Gap 12, Blood Urea Nitrogen 18, Creatinine 0.68, Estimat Glomerular Filtration Rate > 60, BUN/Creatinine Ratio 26, Glucose Level 371, Calcium Level 10.2, Corrected Calcium 10.9, Total Bilirubin 0.4, Aspartate Amino Transf (AST/SGOT) 15, Alanine Aminotransferase (ALT/SGPT) 22, Alkaline Phosphatase 161, Total Protein 6.4, Albumin 3.1 05/23/19 06:47: Glucometer 388 05/23/19 11:47: Glucometer 412 05/23/19 13:44: Glucometer 495 05/23/19 15:15: Glucometer 338 05/23/19 17:24: Glucometer 90 05/23/19 19:35: Glucometer 188 05/23/19 21:29: Glucometer 230 05/23/19 23:58: Glucometer 148 05/24/19 01:55: Glucometer 140 05/24/19 03:57: Glucometer 261 05/24/19 05:56: Glucometer 190 05/24/19 06:20: White Blood Count 12.8, Red Blood Count 4.26, Hemoglobin 11.4, Hematocrit 35, Mean Corpuscular Volume 82, Mean Corpuscular Hemoglobin 27, Mean Corpuscular Hemoglobin Concent 33, Red Cell Distribution Width 13.3, Platelet Count 596, Mean Platelet Volume 11.0, Sodium Level 140, Potassium Level 4.0, Chloride Level 99, Carbon Dioxide Level 26, Anion Gap 15, Blood Urea Nitrogen 25, Creatinine 0.68, Estimat Glomerular Filtration Rate > 60, BUN/Creatinine Ratio 37, Glucose Level 161, Calcium Level 10.7, Corrected Calcium 11.2, Total Bilirubin 0.4, Aspartate Amino Transf (AST/SGOT) 18, Alanine Aminotransferase (ALT/SGPT) 26, Alkaline Phosphatase 178, Total Protein 7.0, Albumin 3.4 05/24/19 06:25: Beta-Hydroxybutyrate (Chem panel) 0.13 05/24/19 07:32: Glucometer 137 05/24/19 12:16: Glucometer 365 Discharge Home Medications: Active Scripts Active Reported Calcium 600 + Vit D 200 Tablet (Calcium Carbonate/Vitamin D3) 1 Each Tablet 1 Tab PO DAILY Novolog Flexpen (Insulin Aspart) 300 Units/3 Ml Solution SQ ACHS 1 UNIT PER EVERY 10 GRAMS OF CARBS Lantus Solostar (Insulin Glargine,Hum.rec.anlog) 100 Unit/1 Ml Insuln.pen 60 Units SQ HS Instructions to patient/family Please see electronic discharge instructions given to patient. Diagnosis/Problems Diagnosis/Problems (1) Myopathy (2) PEG (percutaneous endoscopic gastrostomy) status (3) Altered mental status Status: Acute (4) DKA (diabetic ketoacidoses) (5) Acute pancreatitis Status: Acute (6) Cachexia (7) Diabetic ketoacidosis Status: Acute (8) Anemia (9) Leukocytosis Status: Acute (10) Respiratory failure Status: Acute (11) Electrolyte imbalance Status: Acute (12) Pneumonia Status: Acute (13) Decubitus ulcer, heel (14) Poorly controlled diabetes mellitus (15) Tracheostomy in place (16) Increased ammonia level Clinical Quality Measures DVT/VTE Risk/Contraindication: Risk Factor Score Per Nursin RFS Level Per Nursing on Admit: 4+=Very High STEVAN BURGOS DO May 24, 2019 12:48
--- NOTE | 2019-05-24 12:58 | Diagnostic Imaging Report ---
Indication: Shortness of breath. Time of exam: 12:28 PM Correlation is made with prior study 05/22/2019. Tracheostomy tube has tip above the darrin. Bilateral airspace infiltrates are similar to prior exam. There is no effusion. No pneumothorax. Impression: Stable chest since examination 2 days earlier. Dictated by: Dictated on workstation # [id number]
--- NOTE | 2019-05-24 14:00 | NUR ---
Orders received from Dr. Alonzo to admit patient to ICU. Report given to JORGE Walsh, patient transferred.
--- NOTE | 2019-05-24 14:04 | Therapy Team Discharge Summary ---
Therapy Discharge Summary Discharge Recommendations Date of Discharge Therapy D/C Recommendations: Home w/ Family Support, Occupational Therapy Home Care, Scheduled Assistance Occupational Therapy Decreased Activ Tolerance, Decreased UE Strength, Impaired Coordination, Impaired Funct Balance, Impaired I ADL's, Impaired Self-Care Skills Speech-Language Pathology The patient was discharged to the ICU secondary to a decline in medical status. The patient is being discharged from skilled ST at this time. PT Prison Goals Ton Cylinder Inspector Goals PT Ton Cylinder Inspector Goals Time Frame: Jun 17, 2019 Transfers (B,C,W/C) (FIM): 6 Roll Left to Right (QC): 6 Sit to Lying (QC): 6 Lying-Sitting on Side/Bed(QC): 6 Sit to Stand (QC): 6 Chair/Wei-lp-Dquev Xfer(QC): 6 Car Transfer (QC): 6 Does the Patient Walk: Yes Gait (FIM): 6 Gait distance (FIM): 3=150 ft Distance: >300' Walk 10 feet (QC): 6 Walk 10ft-Uneven Surface(QC): 6 Walk 50ft with 2 Turns (QC): 6 Walk 150 ft (QC): 6 Gait Level of Assist: 6 Gait Assistive Device: None, FWW Stairs (FIM): 6 # of Steps: 12 1 Step (curb) (QC): 6 4 Steps (QC): 6 12 Steps (QC): 6 Stairs Level Of Assist: 6 Picking up an Object (QC): 6 OT Ton Cylinder Inspector Goals Ton Cylinder Inspector Goals Time Frame: Jun 19, 2019 Eating (FIM): 6 Eating (QC): 6 Oral Hygiene (QC): 6 Grooming(FIM): 6 Bathing(FIM): 5 Shower/Bathe Self (QC): 5 Upper Body Dressing(FIM): 6 Upper Body Dressing (QC): 6 Lower Body Dressing(FIM): 6 Lower Body Dressing (QC): 6 On/Off Footwear (QC): 6 Toileting(FIM): 6 Toileting Hygiene (QC): 6 Transfers (B,C,W/C) (FIM): 6 Toilet/Commode Transfer(FIM): 6 Toilet/Commode Transfer (QC): 6 Shower Transfer(FIM): 5 Additional Goals: 1-Demonstrate ADL Tasks, 2-Verbalize Understanding, 3- ImproveStrength/Cory 1=Demonstrate adherence to instructed precautions during ADL tasks. 2=Patient will verbalize/demonstrate understanding of assistive devices/modifications for ADL. 3=Patient will improve strength/tolerance for activity to enable patient to perform ADL's. Speech Ton Cylinder Inspector Goals Ton Cylinder Inspector Goals The patient will improve safety awareness and independence in order to return home safely. ARYAN ROSARIO May 24, 2019 14:04
[2019-05-24] MEDS ORDERED: RT-LEVALBUTEROL (XOPENEX) 1.25 MG/3 ML NEB NON-FORMULARY INH SCH (15:00)
--- NOTE | 2019-05-24 15:11 | Therapy Team Discharge Summary ---
Therapy Discharge Summary Discharge Recommendations Date of Discharge Therapy D/C Recommendations: Home w/ Family Support, Occupational Therapy Home Care, Scheduled Assistance Physical Therapy Patient came to rehab with debility and DKA. Upon evaluation patient performed bed mobility with SBA, supine <-> sit with SBA, sit <-> stand with CGA, transfers with CGA, ambulated 150' with a rolling walker with CGA (including 50' with at least 2 turns of 90 degrees and 10' over an uneven surface, no stairs at that time. Patient has been performing bed mobility and transfer training, balance and endurance training, functional strengthening, gait training, and education. 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 He was transferred back to the ICU due to high heart rate and low BP. Now, patient performs bed mobility with mod I, supine <-> sit mod I, sit <-> stand and transfers with SBA, ambulated 200' with a rolling walker with CGA. Patient will be discharged from PT at this time. Occupational Therapy Decreased Activ Tolerance, Decreased UE Strength, Impaired Coordination, Impaired Funct Balance, Impaired I ADL's, Impaired Self-Care Skills PT Longterm Goals Longterm Goals PT Therapist Physical Goals Time Frame: Jun 17, 2019 Transfers (B,C,W/C) (FIM): 6 Roll Left to Right (QC): 6 Sit to Lying (QC): 6 Lying-Sitting on Side/Bed(QC): 6 Sit to Stand (QC): 6 Chair/Chq-wq-Zawoh Xfer(QC): 6 Car Transfer (QC): 6 Does the Patient Walk: Yes Gait (FIM): 6 Gait distance (FIM): 3=150 ft Distance: >300' Walk 10 feet (QC): 6 Walk 10ft-Uneven Surface(QC): 6 Walk 50ft with 2 Turns (QC): 6 Walk 150 ft (QC): 6 Gait Level of Assist: 6 Gait Assistive Device: None, FWW Stairs (FIM): 6 # of Steps: 12 1 Step (curb) (QC): 6 4 Steps (QC): 6 12 Steps (QC): 6 Stairs Level Of Assist: 6 Picking up an Object (QC): 6 OT Longterm Goals Longterm Goals Time Frame: Jun 19, 2019 Eating (FIM): 6 Eating (QC): 6 Oral Hygiene (QC): 6 Grooming(FIM): 6 Bathing(FIM): 5 Shower/Bathe Self (QC): 5 Upper Body Dressing(FIM): 6 Upper Body Dressing (QC): 6 Lower Body Dressing(FIM): 6 Lower Body Dressing (QC): 6 On/Off Footwear (QC): 6 Toileting(FIM): 6 Toileting Hygiene (QC): 6 Transfers (B,C,W/C) (FIM): 6 Toilet/Commode Transfer(FIM): 6 Toilet/Commode Transfer (QC): 6 Shower Transfer(FIM): 5 Additional Goals: 1-Demonstrate ADL Tasks, 2-Verbalize Understanding, 3- ImproveStrength/Cory 1=Demonstrate adherence to instructed precautions during ADL tasks. 2=Patient will verbalize/demonstrate understanding of assistive devices/modifications for ADL. 3=Patient will improve strength/tolerance for activity to enable patient to perform ADL's. Speech Longterm Goals Therapist Physical Goals The patient will improve safety awareness and independence in order to return home safely. MYRON MEJIA PT May 24, 2019 15:11
--- NOTE | 2019-05-24 15:12 | Therapy Team Discharge Summary ---
Therapy Discharge Summary Discharge Recommendations Date of Discharge 05-24-19 Therapy D/C Recommendations: 24 hr Supervision Occupational Therapy Pt. seen briefly on rehab for treatment to increase functional ADL skills. Pt. experienced change in medical status, and had to discharge to ICU for continued care. No goals met at this time. Decreased Activ Tolerance, Decreased UE Strength, Dependent Transfers, Impaired Coordination, Impaired Funct Balance, Impaired I ADL's, Impaired Self-Care Skills PT Retirement Goals Retirement Goals PT Piano Case Maker Goals Time Frame: Jun 17, 2019 Transfers (B,C,W/C) (FIM): 6 Roll Left to Right (QC): 6 Sit to Lying (QC): 6 Lying-Sitting on Side/Bed(QC): 6 Sit to Stand (QC): 6 Chair/Xsd-xn-Tfoju Xfer(QC): 6 Car Transfer (QC): 6 Does the Patient Walk: Yes Gait (FIM): 6 Gait distance (FIM): 3=150 ft Distance: >300' Walk 10 feet (QC): 6 Walk 10ft-Uneven Surface(QC): 6 Walk 50ft with 2 Turns (QC): 6 Walk 150 ft (QC): 6 Gait Level of Assist: 6 Gait Assistive Device: None, FWW Stairs (FIM): 6 # of Steps: 12 1 Step (curb) (QC): 6 4 Steps (QC): 6 12 Steps (QC): 6 Stairs Level Of Assist: 6 Picking up an Object (QC): 6 OT Retirement Goals Retirement Goals Time Frame: Jun 19, 2019 Eating (FIM): 6 (not met) Eating (QC): 6 (not met) Oral Hygiene (QC): 6 (not met) Grooming(FIM): 6 (not met) Bathing(FIM): 5 (not met) Shower/Bathe Self (QC): 5 (not met) Upper Body Dressing(FIM): 6 (not met) Upper Body Dressing (QC): 6 (not met) Lower Body Dressing(FIM): 6 (not met) Lower Body Dressing (QC): 6 (not met) On/Off Footwear (QC): 6 (not met) Toileting(FIM): 6 (not met) Toileting Hygiene (QC): 6 (not met) Transfers (B,C,W/C) (FIM): 6 (not met) Toilet/Commode Transfer(FIM): 6 (not met) Toilet/Commode Transfer (QC): 6 (not met) Shower Transfer(FIM): 5 (not met) Additional Goals: 1-Demonstrate ADL Tasks, 2-Verbalize Understanding, 3- ImproveStrength/Cory 1=Demonstrate adherence to instructed precautions during ADL tasks. 2=Patient will verbalize/demonstrate understanding of assistive devices/modifications for ADL. 3=Patient will improve strength/tolerance for activity to enable patient to perform ADL's. Speech Piano Case Maker Goals Retirement Goals The patient will improve safety awareness and independence in order to return home safely. JUNG LAMB OT May 24, 2019 15:12
[2019-05-26] MEDS ORDERED: METO50TA15 PEG (10:11)
[2019-05-26] MEDS ORDERED: INSU100I14 SQ (10:11)
[2019-05-26] MEDS ORDERED: METO10TA3 PEG (10:11)
[2019-05-26] MEDS ORDERED: CITA20TA9 PEG (10:11)
[2019-05-26] MEDS ORDERED: INSU100V5 SQ (10:11)
== END 2019-05-24 14:00 | disposition short-term general hospital (02) | DRG 92 ==
PROVIDERS: ADMIT Internal Medicine; ATTEND Internal Medicine
DX: G72.81 Critical illness myopathy (principal); E10.649 Type 1 diabetes mellitus with hypoglycemia without coma; E10.65 Type 1 diabetes mellitus with hyperglycemia; R64 Cachexia; I47.1 Supraventricular tachycardia; K31.89 Other diseases of stomach and duodenum; R78.89 Finding of other specified substances, not normally found in blood; Z93.1 Gastrostomy status; Z93.0 Tracheostomy status; L89.629 Pressure ulcer of left heel, unspecified stage; F17.210 Nicotine dependence, cigarettes, uncomplicated; D64.9 Anemia, unspecified; Z79.4 Long term (current) use of insulin
CPT/HCPCS: 36415; 71045; 80053; 82010; 82962; 85025; 85027; 94640; 94760; 94799

== ENCOUNTER 2019-05-24 13:01 | Inpatient (IN) | payer OTHER ==
[2019-05-24] VITALS (14 sets, daily range): BP systolic 95–124; BP diastolic 73–91
[~2019-05-24] VITALS: Ht 180.3 cm; Wt 44.1 kg
[2019-05-24] MEDS ORDERED: LACTATED RINGERS 1,000 ML IV SCH (14:45)
[2019-05-24] MEDS: RT-LEVALBUTEROL (XOPENEX) 1.25 MG/3 ML NEB NON-FORMULARY INH SCH ×2 (15:42→20:30)
[2019-05-24] MEDS ORDERED: LORazepam INJ 2 MG/ML (ATIVAN) VIAL IVP PRN (15:45)
[2019-05-24] MEDS ORDERED: morphine INJ 4 MG/ML 1 ML (VIAL/SYRINGE) IVP PRN (15:45)
[2019-05-24] MEDS ORDERED: CATHETER FLUSH 10 ML SYR IV PRN (16:15)
[2019-05-24] MEDS: D5 LR IV SOLUTION 1,000 ML IV SCH ×2 (16:40→23:34)
[2019-05-24] MEDS: inSUlin ASPART (NovoLOG) 1 UNIT/0.01 ML (CHARGE PER UNIT) SC SCH ×3 (16:41→23:38)
[2019-05-24] MEDS: meTOprolol TARTRATE 50 MG (LOPRESSOR) TAB PEG SCH ×2 (18:25→23:34)
[2019-05-24] MEDS: METOCLOPRAMIDE 10 MG (REGLAN) TAB PEG SCH (20:50)
[2019-05-24] MEDS: LACTOBACILLUS ACIDOPHILUS (PROBIOTIC) CAPSULE PEG SCH (20:50)
--- NOTE | 2019-05-24 21:00 | NUR ---
Pt VS stable, resting comfortably in bed. Pt visitor stated he was "eating gummy bears earlier today and that is why he feels he is ready for trach to be out".
--- NOTE | 2019-05-24 23:24 | Cardiology Progress Note ---
Cardiology SOAP Progress Note Subjective: Tachycardia Objective: I&O/Vital Signs 05/25/19 05/25/19 05/25/19 05/25/19 13:00 14:47 16:00 19:00 Temp 98.3 Pulse 103 111 116 Resp 22 B/P (MAP) 121/66 (84) Pulse Ox 90 97 O2 Delivery Room Air Room Air 05/25/19 05/25/19 05/25/19 19:38 19:57 23:26 Temp 99.2 98.7 Pulse 112 99 Resp 20 20 B/P (MAP) 137/88 (104) 124/81 (95) Pulse Ox 98 90 96 O2 Delivery Room Air Room Air Room Air 05/25/19 00:00 Intake Total 1150 ml Output Total 425 ml Balance 725 ml Weight (Pounds): 106 Weight (Ounces): 5.0 Weight (Calculated Kilograms): [id number] Constitutional: AAO x 3 Respiratory: chest is bilaterally symmetric, lungs clear to auscultation Cardiovascular: regular rate-rhythm, tachycardia, S1 and S2 Gastrointestional: No tender, No soft, No round, No distended, No pulsatile mass, No organomegaly, No guarding, No rebound, No tenderness, No hernia, No mass, No audible bowel sounds, No abnormal bowel sounds, No abdominal bruits, No spleenomegaly, No other Neurologic/Psychiatric: no motor/sensory deficits, alert, normal mood/affect, oriented x 3 Results/Procedures: Labs Laboratory Tests 05/25/19 03:20: White Blood Count 9.8, Red Blood Count 3.84L, Hemoglobin 10.3L, Hematocrit 31L, Mean Corpuscular Volume 81, Mean Corpuscular Hemoglobin 27, Mean Corpuscular Hemoglobin Concent 33, Red Cell Distribution Width 13.2, Platelet Count 526H, Mean Platelet Volume 10.3, Neutrophils (%) (Auto) 51, Lymphocytes (%) (Auto) 33, Monocytes (%) (Auto) 11, Eosinophils (%) (Auto) 5, Basophils (%) (Auto) 1, Neutrophils # (Auto) 5.0, Lymphocytes # (Auto) 3.2, Monocytes # (Auto) 1.1H, Eosinophils # (Auto) 0.5H, Basophils # (Auto) 0.1, Sodium Level 138, Potassium Level 3.8, Chloride Level 101, Carbon Dioxide Level 26, Anion Gap 11, Blood Urea Nitrogen 15, Creatinine 0.59L, Estimat Glomerular Filtration Rate > 60, BUN/Creatinine Ratio 25, Glucose Level 111H, Calcium Level 9.7, Phosphorus Level 4.7, Magnesium Level 1.8 05/25/19 03:22: Glucometer 111H 05/25/19 07:55: Glucometer 219H 05/25/19 11:41: Glucometer 109 05/25/19 16:03: Glucometer 326H 05/25/19 19:36: Glucometer 310H 05/25/19 23:18: Glucometer 48*L A/P: Assessment/Dx: PSVT Plan: IV Lopressor. IV fluids for hypotension. If does not respond to IV Lopressor may require adenosine. Narrow complex tachycardia with no discernible P waves or retrograde P waves. Will likely require EP study and possible ablation in the future. Thank you for your consultation. Please call me if you have any questions. Lesly Alonzo MD, FACP, FACC, FSCAI, FHRS, CCDS Interventional Cardiology Cardiac Electrophysiology Vascular Medicine and Endovascular Interventions Shahram ALONZO MD May 24, 2019 23:24
[2019-05-25] VITALS (13 sets, daily range): BP systolic 103–137; BP diastolic 66–98
[2019-05-25] MEDS: RT-LEVALBUTEROL (XOPENEX) 1.25 MG/3 ML NEB NON-FORMULARY INH SCH ×4 (03:03→19:56)
[2019-05-25 03:29] LABS: BASOPHILS # (AUTO) 0.1 10^3/uL (0.0-0.1); BASOPHILS % (AUTO) 1 % (0-10); EOSINOPHILS # (AUTO) 0.5 10^3/uL (0.0-0.3); EOSINOPHILS % (AUTO) 5 % (0-10); HEMATOCRIT 31 % (40-54); HEMOGLOBIN 10.3 G/DL (13.3-17.7); LYMPHOCYTES # (AUTO) 3.2 X 10^3 (1.0-4.0); LYMPHOCYTES % (AUTO) 33 % (12-44); MEAN CORPUSCULAR HEMOGLOBIN 27 PG (25-34); MEAN CORPUSCULAR HGB CONC 33 G/DL (32-36); MEAN CORPUSCULAR VOLUME 81 FL (80-99); MEAN PLATELET VOLUME 10.3 FL (7.4-10.4); MONOCYTES # (AUTO) 1.1 X 10^3 (0.0-1.0); MONOCYTES % (AUTO) 11 % (0-12); NEUTROPHILS % (AUTO) 51 % (42-75); PLATELET COUNT 526 10^3/uL (130-400); RED CELL DISTRIBUTION WIDTH 13.2 % (10.0-14.5); WHITE BLOOD COUNT 9.8 10^3/uL (4.3-11.0)
[2019-05-25] MEDS: inSUlin ASPART (NovoLOG) 1 UNIT/0.01 ML (CHARGE PER UNIT) SC SCH ×5 (03:46→21:00)
[2019-05-25 03:55] LABS: BUN/CREATININE RATIO 25; CALCIUM 9.7 MG/DL (8.5-10.1); CARBON DIOXIDE 26 MMOL/L (21-32); CHLORIDE 101 MMOL/L (98-107); CREATININE SERUM 0.59 MG/DL (0.60-1.30); GFR ESTIMATED > 60; GLUCOSE 111 MG/DL (70-105); MAGNESIUM 1.8 MG/DL (1.8-2.4); PHOSPHORUS 4.7 MG/DL (2.3-4.7); POTASSIUM 3.8 MMOL/L (3.6-5.0); SODIUM 138 MMOL/L (135-145)
[2019-05-25] MEDS ORDERED: POTASSIUM CL 10MEQ/50ML IVPB 50 ML IV SCH (06:00)
[2019-05-25] MEDS ORDERED: KCL 20 MEQ TAB (K-DUR) PO SCH (06:00)
[2019-05-25] MEDS ORDERED: MAGNESIUM 1 GM/100 ML IVPB 100 ML IV SCH (06:00)
[2019-05-25] MEDS: meTOprolol TARTRATE 50 MG (LOPRESSOR) TAB PEG SCH ×2 (06:38→21:00)
[2019-05-25] MEDS: MULTIVITAMINS LIQUID 15 ML UDC PEG SCH (06:38)
[2019-05-25] MEDS: D5 LR IV SOLUTION 1,000 ML IV SCH ×3 (07:18→21:33)
--- NOTE | 2019-05-25 07:22 | Pulmonary Progress Note ---
Subjective Time Seen by a Provider: 07:22 Subjective/Events-last exam Pt is doing better today. Sepsis Event Evaluation Height, Weight, BMI Height: 5'11.00" Weight: 97lbs. 5.0oz. [id number]; 14.8 BMI Method:Stated Exam Exam Vital Signs Date Time Temp Pulse Resp B/P (MAP) Pulse Ox O2 Delivery O2 Flow Rate FiO2 05/25/19 06:00 101 12 109/74 (86) 94 Room Air 05/25/19 05:00 97 12 121/90 (100) 94 Room Air 05/25/19 04:00 99 15 107/79 (88) 94 Room Air 05/25/19 04:00 Room Air 05/25/19 03:02 97 Room Air 05/25/19 03:00 91 12 124/87 (99) 94 Room Air 05/25/19 02:00 97.0 90 16 121/84 (96) 95 Room Air 05/25/19 01:00 94 05/25/19 01:00 91 10 103/74 (84) 95 Room Air 05/25/19 00:00 Room Air 05/25/19 00:00 102 10 114/93 (100) 95 Room Air 05/24/19 23:39 97.7 05/24/19 23:00 104 11 120/84 (96) 94 Room Air 05/24/19 22:00 104 14 112/82 (92) 94 Room Air 05/24/19 21:00 101 21 112/79 (90) 97 Room Air 05/24/19 20:32 96 Room Air 05/24/19 20:00 103 15 124/86 (99) 95 Room Air 05/24/19 20:00 97.6 05/24/19 20:00 Room Air 05/24/19 19:00 97.1 105 12 120/91 (101) 97 Room Air 05/24/19 19:00 108 05/24/19 18:00 111 9 112/90 (97) 96 Room Air 05/24/19 17:00 114 14 109/74 (86) 93 Room Air 05/24/19 16:30 116 30 114/73 (87) 90 Room Air 05/24/19 16:00 93 Room Air 05/24/19 16:00 118 16 109/79 (89) 95 Room Air 05/24/19 15:57 98.2 118 17 111/79 (90) 96 Room Air 05/24/19 15:45 96 Room Air 05/24/19 15:00 116 18 112/78 (89) 94 Room Air 05/24/19 14:45 147 15 106/89 (95) 93 Room Air 05/24/19 14:30 147 17 95/80 (85) 93 Room Air 05/24/19 14:26 149 05/24/19 14:00 97.9 147 20 95/80 (85) 94 Room Air 05/24/19 14:00 Room Air I & O 05/25/19 07:00 Intake Total 1150 ml Output Total 1150 ml Balance 0 ml Height & Weight Height: 5'11.00" Weight: 97lbs. 5.0oz. [id number]; 14.8 BMI Method:Stated General Appearance: No Apparent Distress, WD/WN HEENT: PERRL/EOMI, Pharynx Normal Neck: Full Range of Motion, Normal Inspection Respiratory: Chest Non Tender, Lungs Clear Cardiovascular: Regular Rate, Rhythm, No Edema, Tachycardia Capillary Refill: Less Than 3 Seconds Gastrointestinal: normal bowel sounds, non tender, soft Extremity: Normal Capillary Refill, Normal Inspection, No Pedal Edema Neurologic/Psychiatric: Alert, Oriented x3 Skin: Normal Color, Warm/Dry Lymphatic: No Adenopathy Results Lab Laboratory Tests 05/25/19 03:20 Assessment/Plan Assessment/Plan Acute respiratory failure with ARDS s/p aspiration -Will trach tube this AM -PEG tube -Continue Jevity - 65cc/hr. -- -Consult speech for swallow eval today -multivitamin Hypotension/tachycardia -PT transferred from rehab to ICU yesterday -Pt looks better today after IVF Candidiasis bacteremia - resolved --S/P Eraxis -s/p Vanco, Merrem PNA - Improving Decubitus ulcer -Pressure injuries of sacrum, L heel and L ear. -Wound care consulted IDDM -Monitor BS -Continue insulin Gastric Ileus - improved with Jevity -Reglan Pneumomediastinum- resolved Debility/weakness -PT/OT -Pt is getting up to chair for most of the day Cardiomyopathy - now resolved -Cardiology following Anemia -Monitor -Occult stool is positive. FREDI MAYORGA DO May 25, 2019 07:22
--- NOTE | 2019-05-25 08:15 | NUR ---
PT TRANSFERRED TO ROOM 407 VIA BED ACCOMPANIED BY THIS RN AND AIDE. PT PERSONAL BELONGINGS SENT WITH PT TO NEW ROOM, REPORT GIVEN TO JOSE PATEL FOR CONTINUING CARE.
[2019-05-25] MEDS: ENOXAPARIN 30 MG/0.3 ML (LOVENOX) SYR SC SCH (08:52)
[2019-05-25] MEDS: LACTOBACILLUS ACIDOPHILUS (PROBIOTIC) CAPSULE PEG SCH ×3 (08:52→21:06)
[2019-05-25] MEDS: METOCLOPRAMIDE 10 MG (REGLAN) TAB PEG SCH ×3 (08:52→21:00)
--- NOTE | 2019-05-25 09:37 | Diagnostic Imaging Report ---
EXAMINATION: Portable erect AP chest at 3:57 AM. INDICATION: Shortness of breath. FINDINGS: The appearance of the chest has improved since the prior exam of 05/24/2019 as both lungs do seem better aerated. There are still residual alveolar/interstitial infiltrates throughout both lungs. There is still no evidence for a pleural effusion. The mediastinum is not widened. The osseous structures are intact. The tracheostomy tube seen previously appears in good position overlying the tracheal air shadow. IMPRESSION: The appearance of the chest has improved as both lungs are better aerated. There are still residual alveolar/interstitial pulmonary infiltrates bilaterally, however. A followup study would be recommended for continued evaluation. Dictated by: Dictated on workstation # [id number]
--- NOTE | 2019-05-25 09:44 | History & Physical-Hospitalist ---
History of Present Illness HPI/Chief Complaint CC: SVT with hypotension. HPI: This is a 18yoWM that was transferred from inpatient rehab to ICU due to uncontrolled tachycardia of 140 diagnosed as SVT along with hypotension, unresolved with IV fluid resuscitation so he was admitted to the ICU and Pt was able to be converted after aggressive IV fluids and cardiology and pulmonology transferred Pt down to 407 due to stability. Trach was removed and he felt really good about that process but peg tube will remain a full 12 weeks before removal to prevent infection. Overall Pt feels fatigued, does remain having a sitter because of putting things in his mouth when he is NPO due to aspiration risk and other bizarre behaviors. Source: patient Exam Limitations: no limitations Date Seen 05/25/19 Time Seen by a Provider: 10:00 Attending Physician Renetta Tovar DO PCP No,Local Physician Referring Physician Date of Admission May 24, 2019 at 14:00 Home Medications & Allergies Home Medications Reviewed patient Home Medication Reconciliation performed by pharmacy medication reconciliations mathematical engineering technician and/or nursing. Patients Allergies have been reviewed. Allergies Allergies Coded Allergies No Known Drug Allergies (Unverified06/23/09) Past Nyiuono-Tvbgek-Irkady Hx Past Med/Social Hx: Reviewed Nursing Past Med/Soc Hx, Reviewed and Corrections made Patient Social History Marrital Status: single Employed/Student: employed Alcohol Use: Denies Use Recreational Drug Use: No Smoking Status: Unknown if Ever Smoked Type Used: Cigarettes 2nd Hand Smoke Exposure: No Physical Abuse Screen: No Sexual Abuse: No Recent Hopitalizations: Yes (DKA) Seasonal Allergies Seasonal Allergies: No Past Medical History trach, peg during this hospital stay Respiratory: Pneumonia (05/03) Currently Using CPAP: No Currently Using BIPAP: No Reproductive: No Sexually Transmitted Disease: No HIV/AIDS: No Endocrine: Diabetes, Insulin dep Loss of Vision: Denies Hearing Impairment: Denies Skin/Integumentary: Recent Skin Changes History of Blood Disorders: No Adverse Reaction to Blood Cristobal: No Family History Patient reports no known family medical history. Other Conditions/Hx Review of Systems Constitutional: see HPI, malaise, weakness EENTM: no symptoms reported Respiratory: dyspnea on exertion Cardiovascular: palpitations Gastrointestinal: loss of appetite Genitourinary: no symptoms reported Musculoskeletal: no symptoms reported Skin: no symptoms reported Psychiatric/Neurological: No Symptoms Reported All Other Systems Reviewed Negative Unless Noted: Yes Physical Exam Physical Exam Vital Signs Vital Signs - First Documented 05/24/19 14:00 Temp 97.9 Pulse 147 Resp 20 B/P (MAP) 95/80 (85) Pulse Ox 94 O2 Delivery Room Air Capillary Refill : Less Than 3 Seconds Height, Weight, BMI Height: 5'11.00" Weight: 97lbs. 5.0oz. 44.660793fm; 14.8 BMI Method:Stated General Appearance: No Apparent Distress, WD/WN, Chronically ill, Cachetic Eyes: Right Eye Normal Inspection, Right Eye PERRL HEENT: PERRL/EOMI, Normal ENT Inspection, Pharynx Normal, Moist Mucous Membranes Neck: Full Range of Motion, Normal Inspection, Non Tender Respiratory: Chest Non Tender, Lungs Clear, Normal Breath Sounds, No Accessory Muscle Use, No Respiratory Distress Cardiovascular: Regular Rate, Rhythm, No Edema, No Gallop, No JVD, No Murmur, Normal Peripheral Pulses Gastrointestinal: Normal Bowel Sounds, No Organomegaly, No Pulsatile Mass, Non Tender, Soft Back: Normal Inspection, No CVA Tenderness, No Vertebral Tenderness Extremity: Normal Capillary Refill, Normal Inspection, Normal Range of Motion, Non Tender, No Calf Tenderness, No Pedal Edema Neurologic/Psychiatric: Alert, Oriented x3, No Motor/Sensory Deficits, Normal Mood/Affect Skin: Normal Color, Warm/Dry Lymphatic: No Adenopathy Results Results/Procedures Labs Laboratory Tests 05/25/19 03:20 Patient resulted labs reviewed. Assessment/Plan Admission Diagnosis Assessment: s/p SVT episode s/p hypotension Recent critical illness for 35 days prior to rehab transfer Trach s/p DC today PEG will DC after 12 weeks if patient able to eat without aspiration Type 1 DM poorly controlled even before critical illness HGA1C 12/6 last month on admit Depression/bizarre behavior Plan: Bolus tube feeds to begin today with free water Monitor sugar with insulin Difficult issues considering poor compliance and demanding to leave tomorrow Admission Status: Inpatient Order (span 2 midnights) Reason for Inpatient Admission: SVT with hypotension Diagnosis/Problems Diagnosis/Problems (1) Diabetic ketoacidosis Status: Acute Qualifiers: Diabetes mellitus type: type 1 Diabetes mellitus complication detail: with coma Qualified Codes: E10.11 - Type 1 diabetes mellitus with ketoacidosis with coma (2) Epigastric pain Status: Chronic (3) Acute pancreatitis Status: Resolved Qualifiers: Acute pancreatitis complication: unspecified Resolution Date/Time: 05/25/19 @ 20:07 (4) Cachexia Status: Acute (5) Anemia Status: Chronic Qualifiers: Anemia type: unspecified type Qualified Codes: D64.9 - Anemia, unspecified (6) Leukocytosis Status: Acute (7) Myopathy Status: Acute (8) Respiratory failure Status: Acute Qualifiers: Chronicity: unspecified Respiratory failure complication: unspecified whether with hypoxia or hypercapnia Qualified Codes: J96.90 - Respiratory failure, unspecified, unspecified whether with hypoxia or hypercapnia (9) Electrolyte imbalance Status: Acute (10) Pneumonia Status: Resolved Qualifiers: Laterality: unspecified laterality Lung location: unspecified part of lung Resolution Date/Time: 05/25/19 @ 20:07 (11) Decubitus ulcer, heel Status: Acute Qualifiers: Pressure injury stage: stage 2 (12) Poorly controlled diabetes mellitus Status: Chronic (13) Tracheostomy in place Status: Acute (14) Increased ammonia level Status: Resolved Resolution Date/Time: 05/25/19 @ 20:07 (15) DKA (diabetic ketoacidoses) Status: Acute (16) Altered mental status Status: Acute (17) PEG (percutaneous endoscopic gastrostomy) status Status: Acute (18) SVT (supraventricular tachycardia) (19) Hypotension (20) Non-compliance Clinical Quality Measures DVT/VTE Risk/Contraindication: Risk Factor Score Per Nursin RFS Level Per Nursing on Admit: 1=Low/No VTE PPX RENETTA TVOAR DO May 25, 2019 09:44
--- NOTE | 2019-05-25 10:18 | ST Dysphagia Evaluation ---
Speech Evaluation-General Medical Diagnosis DKA Onset Date: May 25, 2019 Therapy Diagnosis Therapy Diagnosis: Oropharyngeal Dysphagia Precautions Precautions: Aspiration Precautions/Isolations: Fall Prevention, Standard Precautions, Pressure Ulcer Referral Referring Physician: Dr. Escobedo Medical History Pertinent Medical History: DM, Smoking Reviewed History: Yes Social History Current Living Status: Friend Speech PLF/Current-Dysphagia Prior Level of Function Prior to hospitalization approximately 5 weeks ago the patient was eating regular consistency without difficulty. Subjective The patient was pleasant and cooperative with the Bedside Dysphagia Evaluation. Cognitive Status Patient is oriented to all concepts Oral Motor Skills Dentition: Natural Ability to Follow Directions: Good Oral Expression Ability: No Impairment Voice Voice Pitch: Moderately Low Voice Loudness: Moderately Soft/Quiet Face Facial Symmetry: Symmetrical Oral-Facial Assessment Oral-Facial Dentition: Normal Labial Seal Description: Normal Smile: Normal Puff Cheeks: Reduced Strength Lingual Protrusion: Normal Lingual ROM: Normal Lingual Strength: Normal Pharynx Velopharyngeal Move.: Normal Volitional Dry Swallow: Yes Dysphagia Evaluation Consistencies Presented: Regular, Thin Liquid, Mechanical Soft, Pureed Oral phase within normal range. Pharyngeal phase within normal range. Dietary Recommendations: Mechanical Soft Liquid Recommendations: Thin Swallowing Precautions: Alternate Liquids/Solids, Decreased Bolus 1/4 Tsp, Liquids from Cup, Liquids from Straw, Small Bites and Sips, Sitting Upright 90 Degrees, Sitting 90 Degrees 30 Post Intake Dysphagia Evaluation Summary The patient is a 18 year old male who has been hospitalized for approximately the last 5 weeks. He has had a very complex stay medically. He has been intubated twice with a trach placement. The trach was removed this am. He was referred for a BDE which was completed. Trials of thin liquid via 1/2 tsp., str aw and small sip without difficulty. Consistencies of puree, mechanical soft and regular were presented at 1/2 tsp. size without difficulty. Per physician request and level of function the patient is being placed on Dysphagia II with thin liquids, This information was given to his nurse. Barriers to Learning The patient has had a very complex medical status. Speech Short Term Goals Short Term Goals Short Term Goals 1) The patient will tolerate least restrictive diet without s/s of aspiration for 90% or greater. 2) The patient will utilize compensatory strategies as trained at 90% or greater. Speech Custodial Goals Pattern Illustrator Goals The patient will maintain adequate nutrition/hydration via safe effective swallow function. Speech-Plan Patient/Family Goals Patient/Family Goals: The patient will return home with family upon hospital discharge. Treatment Plan Speech Therapy Treatment Plan: Continue Plan of Care The patient will receive skilled ST services for dysphagia. Treatment Duration: May 31, 2019 Frequency: 5 times per week Estimated Hrs Per Day: .25 hour per day Rehab Potential: Fair Barriers to Learning: Patient has had a very complex medical status Pt/Family Agrees to Plan: Yes Safety Risks/Education Teaching Recipient: Patient, Significant Other Teaching Methods: Demonstration, Discussion Response to Teaching: Verbalize Understanding, Return Demonstration Education Topics Provided: Safety of oral intake. Time Speech Therapy Time In: 09:50 Speech Therapy Time Out: 10:05 Total Billed Time: 15 Billed Treatment Time 1, ARYAN Agudelo May 25, 2019 10:18
--- NOTE | 2019-05-25 11:49 | Physical Therapy Evaluation ---
PT Evaluation-General Medical Diagnosis Admission Date May 24, 2019 at 14:00 Medical Diagnosis: DKA Onset Date: May 25, 2019 Therapy Diagnosis Therapy Diagnosis: debility Height/Weight Height (Feet): 5 Height (Inches): 11.00 Weight (Pounds): 97 Weight (Ounces): 5.0 Precautions Precautions/Isolations: Fall Prevention, Standard Precautions, Pressure Ulcer Weight Bear Status Right Lower Extremity: Right Full Weight Bearing Left Lower Extremity: Left Full Weight Bearing Referral Physician: Fanny Reason for Referral: Evaluation/Treatment Medical History Pertinent Medical History: DM, Smoking Current History transfer from [facility] to [address] [place] [address] secondary to extended stay in hospital x 5 weeks and patient demanding trach out Reviewed History: Yes Social History Current Living Status: Friend Prior/Core FIM Prior Level of Function Therapy Code Descriptions/Definitions Functional [place] Measure: 0=Not Assessed/NA 4=Minimal Assistance 1=Total Assistance 5=Supervision or Setup 2=Maximal Assistance 6=Modified [place] 3=Moderate Assistance 7=Complete [place] Therapy Quality Codes: 6 Independent with activity with or without an assistive device 5 Patient requires set up or clean up by helper. Patient completes activity by themselves 4 Supervision or touching assist (CGA). [place] provide cues , steadying assist 3 The helper provides less than half the effort to complete the activity 2 The helper provides more than half the effort to complete the activity 1 Dependent. The helper does all the effort to complete an activity 7 Patient refused to complete or attempt activity 9 The patient did not perform the activity before the current illness or injury 88 Not attempted due to Medical conditions or safety concerns Functional Abilities and Goals: Independent: Patient completed the activities by him/herself, with or without an assistive device, with no assistance from a helper. Needed Some Help: Patient needed partial assistance from another person to complete activities. Dependent: A helper completed the activities for the patient. Unknown: Not Applicable: Bed Mobility: 7 Transfers (B,C,W/C) (FIM): 7 Gait: 7 Stairs: 7 Indoor Mobility (Ambulation): Independent Stairs: Independent PT Evaluation-Current Subjective Patient initially declined PT, then with much encouragement, patient agreed. Pain Numeric Pain Scale: 0-No Pain Location: No Pain Reported Objective Patient Orientation: Normal For Age Problem Solving: Fair Attachments: PEG Tube, IV ROM/Strength ROM Lower Extremities bilateral LE WFL Strength Lower Extremities 3/5 grossly with noted right drop foot Integumentary/Posture Integumentary refer to nursing notes Bowel Incontinence: No Bladder Incontinence: No Posture WFL Neuromuscular (Tone, Coordination, Reflexes) diminished coordination due to weakness Sensory Vision: Functional Hearing: Functional Sensation Right Lower Extremit: Impaired Sensation Left Lower Extremity: Impaired Transfers Therapy Code Descriptions/Definitions Functional [place] Measure: 0=Not Assessed/NA 4=Minimal Assistance 1=Total Assistance 5=Supervision or Setup 2=Maximal Assistance 6=Modified [place] 3=Moderate Assistance 7=Complete [place] Transfers (B, C, W/C) (FIM): 5 Scootin Rollin Supine to/from Sit: 6 Sit to/from Stand: 5 Gait Mode of Locomotion: Walk Anticipated Mode of Locomotion: Walk Gait (FIM): 4 Distance (FIM): 3=150 ft Distance: 200' Gait Level of Assist: 4 Gait Persons Needed: 1 Gait Assistive Device: None Comments/Gait Description 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 male, will be seen by skilled PT to address functional strength and mobility to improve current LOF to safely return to home at maximum LOF. Rehab Potential: Guarded Post Rehab Potential-Barriers: compliance PT Short Term Goals Short Term Goals Time Frame: Jun 10, 2019 Transfers (B,C,W/C) (FIM): 6 Gait (FIM): 6 Distance (FIM): 3=150 ft Gait Distance Comment: 300' Gait Level of Assist: 6 Gait Assistive Device: None, FWW PT Plan Problem List Problem List: Activity Tolerance, Functional Strength, Safety, Balance, Gait Treatment/Plan Treatment Plan: Continue Plan of Care Treatment Plan: Education, Functional Activity Cory, Functional Strength, Gait, Safety, Therapeutic Exercise, Transfers Treatment Duration: Jun 10, 2019 Frequency: 6 times per week Estimated Hrs Per Day: .25 hour per day Patient and/or Family Agrees t: Yes Time/GCodes Time In: 1052 Time Out: 1122 Total Billed Treatment Time: 30 Total Billed Treatment 1 visit EVModC 16 min\ GT 14 min REGIS CHOWDARY PT May 25, 2019 11:49
--- NOTE | 2019-05-25 13:27 | Occupational Therapy Eval ---
OT Evaluation-General/PLF Medical Diagnosis Admission Date May 24, 2019 at 14:00 Medical Diagnosis: DKA Onset Date: May 25, 2019 Therapy Diagnosis Therapy Diagnosis: Weakness, Decreased ADL skills Height/Weight Height (Feet): 5 Height (Inches): 11.00 Weight (Pounds): 97 Weight (Ounces): 5.0 Precautions Precautions/Isolations: Fall Prevention, Standard Precautions, Pressure Ulcer Safety Interventions: Bed Exit Alarm Comments Sitter in place. Weight Bear Status Weight Bearing Restriction: Weight Bearing/Tolerated Referral Physician: Fanny Referral Reason: Activity Tolerance, Self Care, Evaluation/Treatment, Strengthening/ROM Medical History Pertinent Medical History: DM, Smoking Current History Pt. has had complicated medical history. Pt. has been in hospital since April 22, 2019. Pt. has been on and off ventilator support. Pt. came to rehab but transferred back to ICU due to heart issues. Pt. has since transferred to [address] [place] [address] and is evaluated at this time. Reviewed History: Yes Social History Home: Single Level Current Living Status: Significant Other (fiance) Entry Into Home: Level Entry ADL-Prior Level of Function Therapy Code Descriptions/Definitions Functional [place] Measure: 0=Not Assessed/NA 4=Minimal Assistance 1=Total Assistance 5=Supervision or Setup 2=Maximal Assistance 6=Modified [place] 3=Moderate Assistance 7=Complete [place] Therapy Quality Codes: 6 Independent with activity with or without an assistive device 5 Patient requires set up or clean up by helper. Patient completes activity by themselves 4 Supervision or touching assist (CGA). [place] provide cues , steadying assist 3 The helper provides less than half the effort to complete the activity 2 The helper provides more than half the effort to complete the activity 1 Dependent. The helper does all the effort to complete an activity 7 Patient refused to complete or attempt activity 9 The patient did not perform the activity before the current illness or injury 88 Not attempted due to Medical conditions or safety concerns Functional Abilities and Goals: Independent: Patient completed the activities by him/herself, with or without an assistive device, with no assistance from a helper. Needed Some Help: Patient needed partial assistance from another person to complete activities. Dependent: A helper completed the activities for the patient. Unknown: Not Applicable: ADL PLOF Comments Pt. was independent with daily tasks. 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 Drive Self: Yes OT Current Status Subjective Pt. does not report pain. Reports being very tired and having anxiety. Requests for nursing to give him anxiety meds. Nursing does this. Appearance Pt. in bed upon OT entering room. Declines showering, spong bathing, changing clothing, and ambulating. Agrees to work on UE strengthening. Mental Status/Objective Patient Orientation: Person, Place, Time, Situation Attachments: IV, Telemetry Current Upper Extremity ROM WFL Upper Extremity Strength 3/5 Pt. demonstrates full AROM, but demonstrates significant UE weakness. ADL-Treatment Therapy Code Descriptions/Definitions Functional [place] Measure: 0=Not Assessed/NA 4=Minimal Assistance 1=Total Assistance 5=Supervision or Setup 2=Maximal Assistance 6=Modified [place] 3=Moderate Assistance 7=Complete [place] Therapy Quality Codes: 6 Independent with activity with or without an assistive device 5 Patient requires set up or clean up by helper. Patient completes activity by themselves 4 Supervision or touching assist (CGA). [place] provide cues , steadying assist 3 The helper provides less than half the effort to complete the activity 2 The helper provides more than half the effort to complete the activity 1 Dependent. The helper does all the effort to complete an activity 7 Patient refused to complete or attempt activity 9 The patient did not perform the activity before the current illness or injury 88 Not attempted due to Medical conditions or safety concerns Transfers (B, C, W/C) (FIM): 5 (SBA supine-sit and balance on side of bed. Mod I with all bed mobility using bedrail.) This pt. is known to this therapist from previous rehab stay. Pt. agrees to sit on side of bed, but is adamant that he sits on the right side. Completes 3 sets x 10 reps of bilateral UE AROM, but requires multiple rest breaks. Pt. will sit and close eyes and breathe deeply. Declines any other OOB activities. Pt. requests nursing due to anxiety. Nursing comes in to give pt. anti-anxiety m eds. Pt. is encouraged to breathe deeply, and is educated on other calming methods. Pt. lays himself back down, and will not get back up. Pt. is encouraged about importance of keeping track of his health and awareness of his condition. Pt. is asked if he will have a support system at home. He states that he will, his fiance Ivone whom he lives with. She does not work and will be home with him. Pt. is encouraged to have Ivone come in for family training at some point, so that both of them are comfortable with discharge, whenever that may be. Pt. nods head. Pt. is in bed resting with sitter back in place after treatment. Will continue to encourage pt. for increased strength. Education OT Patient Education: Correct positioning, Exercise program, Modified ADL techniques, Progress toward Goal/Update tx plan, Purpose of tx/functional activities, Reviewed precautions, Rehab process, Transfer techniques Teaching Recipient: Patient Teaching Methods: Demonstration, Discussion Response to Teaching: Verbalize Understanding, Return Demonstration OT Short Term Goals Short Term Goals Transfers (B,C,W/C) (FIM): 6 1=Demonstrate adherence to instructed precautions during ADL tasks. 2=Patient will verbalize/demonstrate understanding of assistive devic es/modifications for ADL. 3=Patient will improve strength/tolerance for activity to enable patient to perform ADL's. OT Marketing And Communications Officer Goals Marketing And Communications Officer Goals Time Frame: Jun 08, 2019 Eating (FIM): 5 Grooming(FIM): 5 Bathing(FIM): 5 Upper Body Dressing(FIM): 5 Lower Body Dressing(FIM): 5 Toileting(FIM): 6 Transfers (B,C,W/C) (FIM): 6 Toilet/Commode Transfer(FIM): 6 Shower Transfer(FIM): 5 Additional Goals: 1-Demonstrate ADL Tasks, 2-Verbalize Understanding, 3- ImproveStrength/Cory 1=Demonstrate adherence to instructed precautions during ADL tasks. 2=Patient will verbalize/demonstrate understanding of assistive devices/modifications for ADL. 3=Patient will improve strength/tolerance for activity to enable patient to perform ADL's. OT Education/Plan Problem List/Assessment Assessment: Decreased Activ Tolerance, Decreased UE Strength, Impaired I ADL's, Impaired Self-Care Skills Discharge Recommendations Plan/Recommendations: Continue POC Treatment Plan/Plan of Care Treatment,Training & Education: Yes Patient would benefit from OT for education, treatment and training to promote independence in ADL's, mobility, safety and/or upper extremity function for ADL's. Plan of Care: ADL Retraining, Functional Mobility, UE Funct Exercise/Act Treatment Duration: Jun 08, 2019 Frequency: 5 times per week Estimated Hrs Per Day: .5 hour per day Agreement: Yes Rehab Potential: Fair Time/GCodes Start Time: 12:05 Stop Time: 12:30 Total Time Billed (hr/min): 25 Billed Treatment Time 1, EVH x 10minutes, Ex x 15minutes JUNG LAMB OT May 25, 2019 13:27
--- NOTE | 2019-05-25 14:01 | Behavioral Health Consult ---
Consult- Consult Date Seen by Provider: May 24, 2019 Time Seen by Provider: 11:00 [facility]#: [id number] CPT Code: 06804 Psychodiagnostic Examination 06529 Interactive Complexity, 2 unit(s) Start Time: 11:00 am Stop Time: 1:00 pm Chief Complaint: likely depression Referral: Isrrael Parker is a 18-year-old, , male referred by Dr. Tovar for a clinical diagnostic assessment. Information for this evaluation was gathered from self-report, clinical observation, hospital nurse, hospital social sciences chair, and medical records. Presenting Problem: Therapist spoke with Swati Loza nurse before meeting with him. She reported he was hospitalized due to noncompliance with taking his insulin and then became sick with pneumonia. She reported he has had high blood pressure today which has made him anxious, but he has not wanted any medication. She reported if they cannot get his blood pressure to come down he will have to be transferred to ICU which he does not want to do. Isrrael reported he has been participating in physical therapy and has been able to walk alright. He reported he is ready to get out of the hospital and wants to walk out if he will not be released but agreed to speak with therapist. He reported he was first diagnosed with diabetes when he was 11 years old. He stated it does not run in his family and he has been able to manage it somewhat since he was first diagnosed. He reported he was unsure what exactly led to his hospitalization and was told that according to his medical records he had been found unconscious by his roommate and at some point, and had or developed pneumonia. He stated he was hospitalized and three weeks later had to have a trach put in him after he was on a ventilator, which has been very uncomfortable. He also stated he went from weighing 151 pounds to weighing 110 since being in the hospital. He was asked if he was making a suicide attempt when he was found in his house but denied it. Isrrael reported he has felt depressed, had insomnia, and had a weight change only since being hospitalized. He reported prior to that his mood was fine. He also denied any current or past suicidal ideation, feelings of worthlessness, guilt, or difficulty concentrating. Isrrael reported being worried since being in the hospital and stated he has been worried about his job, his dogs, bills, house, and his trucks. He was asked if anyone was taking care of his dogs and stated he was unsure. He also stated he has not talked with his employer in a couple of weeks which was why he was unsure about his job. Therapist stated she had read in his records that he had many visitors coming to see him and asked if they had been helping with those areas or could help and he stated he was unsure. He reported he does not feel he has any support. He stated his girlfriend, who has been the main person to visit him, is supportive when she has time. He was asked about his mother who his records stated he would be living with after he was discharged, and stated she is not supportive and he would not be living with her. He reported he was planning on going back to live with his roommate in his own house once he is discharged. He reported his mother has only seen him three times since he has been hospitalized. Isrrael denied any visits from his friends or roommates while being hospitalized almost two months. During the consultation Dr. Escobedo came in to discuss his blood pressure and recommended that Isrrael be transferred to ICU. Isrrael was very irritable about that and became tearful. It was expressed that it was currently unsafe to remove the trach until his blood pressure became stable and that he was still hopeful that it could be removed by the end of the week, but he would need to be transferred to ICU first. Dr. Escobedo also ordered an anxiolytic and morphine be added to help with the transition. Once Dr. Escobedo left we discussed his goals and processed his feelings about what was currently going on with his health and hospitalization. Observations/Mental Status: Isrrael was seen on the rehab unit and was alone. Overall appearance was very underweight, wearing only shorts . Isrrael appeared to be a fair historian. Observed gait and gross motor movements indicated no clinically significant difficulties. Swati general approach to the evaluation was guarded but cooperative. Orientation was intact for person, place, time, and situation. Isrrael evidenced fair understanding of the reason for the appointment. Swati in-session behavior was restless and irritable at times. The predominant mood was irritable with affect appropriate to expressed concerns and presenting problem. Immediate attention and concentration was unremarkable clinically during the interview. Memory functioning appeared to be intact. Level of intellectual functioning compared to same age peers was estimated to be in the average range. Thought processes were found to be generally logical, coherent and goal directed. Thought content appeared normal. Psychomotor functioning was within normal limits. Tone of voice was soft, had trach in and could not speak above a whisper, would nod or text out responses if needed. Expressive speech was marked by vague, unelaborated responses. Eye contact was fair. Insight was poor. Overall, style of interacting during the appointment was disinterested. Current/Previous Mental Health Treatment: Past psychiatric history was denied. History of self or other harm was denied. Current destructive behavior patterns: none indicated or reported. Family psychiatric history was reported as unremarkable. Recreational Drug Usage: Substance abuse history was denied any use or substance abuse problems. 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 Family history of alcohol or drug abuse was reported as not assessed. 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 He reported he is currently trying to obtain short term disability but is unsure if he will receive it and unsure if he will have a job to go back to. 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 Legal History: Legal history was not assessed. Family and Social Histories: Isrrael reported he was raised by his mother, does not have a biological father, and he has a step father he has a fair re lationship with, but he is no longer to his mother. He reported his stepfather lives in [place] and his mother lives in [place]. Isrrael reported he currently lives with a roommate. Social contacts were reported as poor. He reported he does not have any friends or any support from family or friends. He was asked about the visitors he has had and stated he has visitors who touch things and mess with the equipment in the hospital. He stated he and his roommate are not close because the roommate works a lot and he has not visited him while he has been in the hospital. Summary of Assessment Information/Prognosis: Isrrael is a 18-year-old male. Following current assessment, presenting problem and symptoms appear consistent with a preliminary diagnosis of F43.23 Adjustment disorder with mixed anxiety and depressed mood Overall, prognosis is estimated to be guarded. Diagnostic Impressions: F43.23 Adjustment disorder with mixed anxiety and depressed mood Initial Treatment Plan/Recommendations: The recommendations currently include the following: individual outpatient psychotherapy. Isrrael was asked about participating in individual therapy once he is discharged from the hospital to help him cope with his recent health scare and to help him learn how to make himself a priority. He initially stated he did not want to participate in ther apy and was not open to it, but at the end of the consultation stated he would think about it. Therapist left her card and stated he could schedule with her as soon as he knew when he was to be discharged and that hospital staff could also assist him in making the appt. Therapist spoke with Denia, his nurse, and she said she was glad he was open to it and they could help make the appt. Therapist also recommended a short term anxiolytic to help decrease his anxiety while hospitalized. Isrrael is recommended to return within one week for follow-up. Further disposition will be made at that time. Isrrael verbalized understanding of these recommendations and an intention to comply with the proposed treatment plan and course of treatment. [facility] May 25, 2019 14:01
--- NOTE | 2019-05-25 15:30 | NUR ---
PT INFORMED THAT REQUESTED THAT HE NOT HAVE ANY VISITORS DUE TO ISSUES THAT HAD BEEN OCCURRING WHILE FAMILY AND FRIENDS WERE VISITING. PT BECAME VERY UPSET AND ASKED FOR HIS DISCHARGE PAPERS. I EXPLAINED TO PT THAT IF HE LEFT THE HOSPITAL IN THE STATE THAT HE WAS IN THE WAS A VERY GOOD CHANCE THAT HE COULD . PT STATED THAT HE DIDN'T CARE AND AGAIN ASKED FOR HIS PAPERS. AT THAT TIME I CALLED DR. MAYORGA AND EXPLAINED THE SITUATION TO HIM. DR. MAYORGA AGREED TO COME TALK TO PT TO SEE IF HE COULD GET HIM TO STAY. DR. MAYORGA TALKED PT BUT PT WAS REFUSING TO STAY IF HE COULD NOT HAVE VISITORS. DR. MAYORGA AND I THEN CALLED KERRI TAN FOR ASSISTANCE ON WHAT TO DO IN THIS SITUATION. WE CAME TO A COMPROMISE WITH THE PT THAT HE COULD HAVE VISITORS BUT THEY COULD NOT BE IN THE HOSPITAL BED WITH THE PT DUE TO STAFF NOT BEING ABLE TO PROPERLY TAKE CARE OF THE PT. PT VERBALLY AGREED TO THIS COMPROMISE AND TO STAY IN THE HOSPITAL UNTIL HE COULD BE DISCHARGED THE NEXT DAY ON 05/26/2019.
--- NOTE | 2019-05-25 15:30 | NUR ---
CM/SS, respond to consult for extended hospital stay and complex post hospital needs. Patient was alone at the time of interview but fiance had been with him earlier. Patient indicated that his discharge was tentatively planned for WednesdayMay 29 and that he would return back to his residence with a male and female friend. Patient has continuous PEG feedings, this process needs to be reviewed for DME required and recommended nutritional supplement. Patient is IDDM and will need emphasis on maintenance and management. New Rx will need to be coordinated through most appropriate programs as a bridge to a connection for PCP. Patient/caregivers will need to be educated about his overall needs and processes. HHC: Encouraged RN and PT for home, at least short term, due to severity of patient status while here and likely extended recovery. Patient indicated he understood the role of HHC and that he would agree to accept. DME: Patient stated that he walked with PT today without a FWW; however, therapy notes reflect that he refused to use the walker rather than he was doing so well he didn't need it. Coordinate FWW if therapy recommends and patient agrees to it. Openly discussed staff concerns about girlfriend/fiance and visitors, suspicion for bringing patient items he was told to avoid due to trach, swallowing precautions, and diabetes (see EMR) and/or inappropriate involvement with medical surroundings/equipment. Patient denied any concern or fear for his safety and that he would return home as before. Patient did not have a local physician prior to hospitalization. As a diabetic, he indicated he had continued to get his Rx from Dr. Linn in [place], [place]. He is in agreement to become established through [facility] upon discharge. Concern is patient's vulnerability from critical health status and decline, weight loss, vent to trach, PEG feedings, and an aura of uncertain safety for him if dependent on others. Interdisciplinary team will attempt to address all needs prior to discharge.
--- NOTE | 2019-05-25 16:16 | Pulmonary Progress Note ---
Standard Progress Note Progress Notes Time Seen by Provider: 16:12 RN called me because pt was wanting to leave AMA. I along with nurse manager metal and bedside RN went and talked to patient he is very upset for multiple different reasons. I explained to patient he is in no condition to go home. After long discussion patient agrees to stay. RN also states pt aspirated on food after starting PO food. I discussed with Dr. Mariee and Dr. Ivan. We will do barium swallow tomorrow. Assessment & Plan Acute respiratory failure with ARDS s/p aspiration -Will trach tube this AM -PEG tube -Continue Jevity - 65cc/hr. -- -will do barium swallow test tomorrow -multivitamin Hypotension/tachycardia -PT transferred from rehab to ICU yesterday -Pt looks better today after IVF Candidiasis bacteremia - resolved --S/P Eraxis -s/p Vanco, Merrem PNA - Improving Decubitus ulcer -Pressure injuries of sacrum, L heel and L ear. -Wound care consulted IDDM -Monitor BS -Continue insulin Gastric Ileus - improved with Jevity -Reglan Pneumomediastinum- resolved Debility/weakness -PT/OT -Pt is getting up to chair for most of the day Cardiomyopathy - now resolved -Cardiology following Anemia -Monitor -Occult stool is positive. Critical Care: Critically Ill Patient Time spent with patient (mins): 60 FREDI MAYORGA DO May 25, 2019 16:16
[2019-05-25] MEDS ORDERED: LORazepam INJ 2 MG/ML (ATIVAN) VIAL IV PRN (16:30)
--- NOTE | 2019-05-25 16:30 | NUR ---
Mother here to see patient. Standing at the foot of the bed screaming at him that he cannot leave AMA and that he must stay and listen to the doctor and ask questions if he doesn't understand. Mother was asked to keep her voice down which she did. This RN was asked to come into the patient's room by the mother when I informed her that she could not mandate who could and could not visit the patient since the patient is 18 years old. She told the patient to tell me that he agreed that the girlfriend could not visit eugenio and that he would not leave AMA and that he would wait until Wednesday and then go home with his mother. He nodded his head and said yes. As soon as the mother left the room, the patient requested that I go back in the room to talk to him. He proceeded to tell me that he was not going home with his mother and that his girlfriend could visit if he wanted. He also said he wanted to go ahead with the previously agreed to discharge plan of tomorrow. I told him that it would be late tomorrow or maybe Wednesday morning. He agreed to either time. He said his mother does not have the means to take care of him and that she was gone 90% of the time. The mother did say she left for work at 3:30am until 3:30pm and said his 80 year old grandfather and 16 year old sister would have to take care of him. He said there is a reason he left home at the age of 13. I asked him if he felt he was safe to go home with the girlfriend. He said yes. I also asked if he was wanting to leave the hospital so he could harm himself and he said no - I promise. sanitation worker cleaning machinery, loading unit operator powder charging, and patient's nurse aware of this conversation. product support manager to notify physician of desire to continue with the original discharge plan.
--- NOTE | 2019-05-25 17:32 | NUR ---
PT IS TYPE 1 DIABETIC. PER ARU RN, PT GLUCOSE LEVELS HAVE BEEN UNCONTROLLED. PT HAS HAD OCCASIONAL ELEVATED RESIDUALS WITH BOTH GLUCERNA 1.5 AND JEVITY 1.5, BUT NOT EXCESSIVELY HIGH. FOR DISCHARGE HOME, RECOMMEND GLUCERNA 1.5, 2 CANS QID WITH 300 ML FLUSHES BETWEEN FEEDS (THREE TIMES PER DAY). THIS WILL PROVIDE A TOTAL OF 2848 KCAL, 156.8 GRAMS PROTEIN, 2340 ML FREE WATER.
--- NOTE | 2019-05-25 21:00 | NUR ---
RESIDUAL- 15ML FLUSH-30ML MEDS-30ML WATER-300ML FLUSH-30ML
[2019-05-25] MEDS ORDERED: DEXTROSE 50% 50 ML (IMS) SYR ONE (23:23)
--- NOTE | 2019-05-25 23:45 | NUR ---
RESIDUAL CHECKED-200ML RETURNED. BOLUS FEEDING HELD AT THIS TIME.
--- NOTE | 2019-05-25 23:48 | NUR ---
SPOKE WITH DR. BURGOS AND INFORMED HER OF PTS RESIDUAL OF 200ML. TELEPHONE ORDERS RECEIVED TO HOLD FEEDING AND ADD A ORDER TO HOLD FUTURE FEEDINGS FOR RESIDUAL GREATER THAN 100ML.
--- NOTE | 2019-05-25 23:55 | Cardiology Progress Note ---
Cardiology SOAP Progress Note Subjective: Converted to sinus rhythm overnight. Objective: I&O/Vital Signs 05/25/19 05/25/19 05/25/19 05/25/19 13:00 14:47 16:00 19:00 Temp 98.3 Pulse 103 111 116 Resp 22 B/P (MAP) 121/66 (84) Pulse Ox 90 97 O2 Delivery Room Air Room Air 05/25/19 05/25/19 05/25/19 19:38 19:57 23:26 Temp 99.2 98.7 Pulse 112 99 Resp 20 20 B/P (MAP) 137/88 (104) 124/81 (95) Pulse Ox 98 90 96 O2 Delivery Room Air Room Air Room Air 05/25/19 00:00 Intake Total 1150 ml Output Total 425 ml Balance 725 ml Weight (Pounds): 97 Weight (Ounces): 5.0 Weight (Calculated Kilograms): 44.819182 Constitutional: AAO x 3 Respiratory: chest is bilaterally symmetric, lungs clear to auscultation Cardiovascular: regular rate-rhythm, tachycardia, S1 and S2 Gastrointestional: No tender, No soft, No round, No distended, No pulsatile mass, No organomegaly, No guarding, No rebound, No tenderness, No hernia, No mass, No audible bowel sounds, No abnormal bowel sounds, No abdominal bruits, No spleenomegaly, No other Neurologic/Psychiatric: no motor/sensory deficits, alert, normal mood/affect, o riented x 3 Results/Procedures: Labs Laboratory Tests 05/25/19 03:20: White Blood Count 9.8, Red Blood Count 3.84L, Hemoglobin 10.3L, Hematocrit 31L, Mean Corpuscular Volume 81, Mean Corpuscular Hemoglobin 27, Mean Corpuscular Hemoglobin Concent 33, Red Cell Distribution Width 13.2, Platelet Count 526H, Mean Platelet Volume 10.3, Neutrophils (%) (Auto) 51, Lymphocytes (%) (Auto) 33, Monocytes (%) (Auto) 11, Eosinophils (%) (Auto) 5, Basophils (%) (Auto) 1, Neutrophils # (Auto) 5.0, Lymphocytes # (Auto) 3.2, Monocytes # (Auto) 1.1H, Eosinophils # (Auto) 0.5H, Basophils # (Auto) 0.1, Sodium Level 138, Potassium Level 3.8, Chloride Level 101, Carbon Dioxide Level 26, Anion Gap 11, Blood Urea Nitrogen 15, Creatinine 0.59L, Estimat Glomerular Filtration Rate > 60, BUN/Creatinine Ratio 25, Glucose Level 111H, Calcium Level 9.7, Phosphorus Level 4.7, Magnesium Level 1.8 05/25/19 03:22: Glucometer 111H 05/25/19 07:55: Glucometer 219H 05/25/19 11:41: Glucometer 109 05/25/19 16:03: Glucometer 326H 05/25/19 19:36: Glucometer 310H 05/25/19 23:18: Glucometer 48*L A/P: Assessment/Dx: PSVT, converted to sinus rhythm. Plan: Change IV Lopressor to by mouth Lopressor 100 mg twice a day. Can continue inpatient rehabilitation. Patient will require EP study and possible PSVT ablation after discharge. Thank you for your consultation. Please call me if you have any questions. Lesly Alonzo MD, FACP, FACC, FSCAI, FHRS, CCDS Interventional Cardiology Cardiac Electrophysiology Vascular Medicine and Endovascular Interventions Shahram ALONZO MD May 25, 2019 23:55
[2019-05-26] MEDS: inSUlin ASPART (NovoLOG) 1 UNIT/0.01 ML (CHARGE PER UNIT) SC SCH ×3 (00:18→09:20)
[2019-05-26] MEDS ORDERED: DEXTROSE 50% 50 ML (IMS) SYR IV PRN (00:30)
--- NOTE | 2019-05-26 02:00 | NUR ---
2315- BLOOD SUGAR WAS 48. 2325- SPOKE WITH DR. BURGOS AND INFORMED HER OF PTS CONDITION. TELEPHONE ORDER RECEIVED TO GIVE 1/2 AMP OF D50 NOW AND 1/2AMP OF D50 FOR BLOOD SUGAR LESS THAN 80. ALSO RECEIVED ORDERS TO SWITCH PTS SLIDING SCALE TO SLIDING SCALE "A" BUT NOT TO GIVE MORE THAN 5 UNITS OF INSULIN. 2332- 1/2 AMP D50 GIVEN. 2345-BLOOD SUGAR WAS 76. 0030- RECHECKED PTS BLOOD SUGAR, IT WAS 43. 0041- 1/2 AMP D50 GIVEN. 0100- BS RECHECKED 101. 0200- BS RECHECKED 86.
[2019-05-26 03:59] VITALS: BP 118/76
[2019-05-26] MEDS: MULTIVITAMINS LIQUID 15 ML UDC PEG SCH (05:49)
[2019-05-26 06:19] LABS: BASOPHILS % (AUTO) 0 % (0-10); EOSINOPHILS # (AUTO) 0.3 10^3/uL (0.0-0.3); EOSINOPHILS % (AUTO) 4 % (0-10); HEMATOCRIT 31 % (40-54); HEMOGLOBIN 10.5 G/DL (13.3-17.7); LYMPHOCYTES # (AUTO) 2.6 X 10^3 (1.0-4.0); LYMPHOCYTES % (AUTO) 28 % (12-44); MEAN CORPUSCULAR HEMOGLOBIN 27 PG (25-34); MEAN CORPUSCULAR HGB CONC 34 G/DL (32-36); MEAN CORPUSCULAR VOLUME 81 FL (80-99); MEAN PLATELET VOLUME 10.7 FL (7.4-10.4); MONOCYTES % (AUTO) 11 % (0-12); NEUTROPHILS # (AUTO) 5.3 X 10^3 (1.8-7.8); NEUTROPHILS % (AUTO) 57 % (42-75); PLATELET COUNT 499 10^3/uL (130-400); RED CELL DISTRIBUTION WIDTH 13.2 % (10.0-14.5); WHITE BLOOD COUNT 9.3 10^3/uL (4.3-11.0)
[2019-05-26 06:35] LABS: BUN/CREATININE RATIO 11; CALCIUM 10.2 MG/DL (8.5-10.1); CARBON DIOXIDE 23 MMOL/L (21-32); CHLORIDE 102 MMOL/L (98-107); CREATININE SERUM 0.64 MG/DL (0.60-1.30); GFR ESTIMATED > 60; GLUCOSE 205 MG/DL (70-105); MAGNESIUM 1.7 MG/DL (1.8-2.4); PHOSPHORUS 4.8 MG/DL (2.3-4.7); POTASSIUM 3.8 MMOL/L (3.6-5.0); SODIUM 138 MMOL/L (135-145)
--- NOTE | 2019-05-26 06:39 | Pulmonary Progress Note ---
Subjective Time Seen by a Provider: 06:56 Subjective/Events-last exam Barium swallow scheduled for today. Sepsis Event Evaluation Height, Weight, BMI Height: 5'11.00" Weight: 97lbs. 2.0oz. 44.987920lp; 14.8 BMI Method:Stated Exam Exam Vital Signs Date Time Temp Pulse Resp B/P (MAP) Pulse Ox O2 Delivery O2 Flow Rate FiO2 05/26/19 03:59 98.5 98 18 118/76 (90) 94 Room Air 05/26/19 02:55 92 Room Air 05/26/19 01:00 94 05/25/19 23:26 98.7 99 20 124/81 (95) 96 Room Air 05/25/19 20:00 Room Air 05/25/19 19:57 90 Room Air 05/25/19 19:38 99.2 112 20 137/88 (104) 98 Room Air 05/25/19 19:00 116 05/25/19 16:00 98.3 111 22 121/66 (84) 97 Room Air 05/25/19 14:47 90 Room Air 05/25/19 13:00 103 05/25/19 11:39 98.0 95 18 121/90 (100) 93 Room Air 05/25/19 09:56 95 Room Air 05/25/19 08:00 Room Air 05/25/19 07:51 98.4 98 12 137/98 (111) 94 Room Air 05/25/19 07:00 102 05/25/19 07:00 101 12 131/97 (108) 93 Room Air I & O 05/26/19 07:00 Intake Total 2250 ml Output Total 1550 ml Balance 700 ml Height & Weight Height: 5'11.00" Weight: 97lbs. 2.0oz. 44.426993we; 14.8 BMI Method:Stated General Appearance: No Apparent Distress, WD/WN, Chronically ill, Cachetic HEENT: PERRL/EOMI, Normal ENT Inspection, Pharynx Normal, Moist Mucous Membranes Neck: Full Range of Motion, Normal Inspection, Non Tender Respiratory: Chest Non Tender, Lungs Clear, Normal Breath Sounds, No Accessory Muscle Use, No Respiratory Distress Cardiovascular: Regular Rate, Rhythm, No Edema, No Gallop, No JVD, No Murmur, Normal Peripheral Pulses Capillary Refill: Less Than 3 Seconds Gastrointestinal: normal bowel sounds, non tender, soft Extremity: Normal Capillary Refill, Normal Inspection, Normal Range of Motion, Non Tender, No Calf Tenderness, No Pedal Edema Neurologic/Psychiatric: Alert, Oriented x3, No Motor/Sensory Deficits, Normal Mood/Affect Skin: Normal Color, Warm/Dry Lymphatic: No Adenopathy Results Lab Laboratory Tests 05/25/19 03:20 05/26/19 06:10 Assessment/Plan Assessment/Plan Acute respiratory failure with ARDS s/p aspiration -Will trach tube this AM -PEG tube -Change to bolus feeding -Pt was placed on dysphagia diet yesterday however then aspirated on dysphagia 2 diet -Barium swallow scheduled for today -multivitamin - D/C secondary to high phos and Ca Candidiasis bacteremia - resolved --S/P Eraxis -s/p Vanco, Merrem PNA - Improving Decubitus ulcer -Pressure injuries of sacrum, L heel and L ear. -Wound care consulted IDDM -Monitor BS -Continue insulin Pneumomediastinum- resolved Debility/weakness -PT/OT -Pt is getting up to chair for most of the day Cardiomyopathy - now resolved -Cardiology following Anemia -Monitor -Occult stool is positive. FREDI MAYORGA DO May 26, 2019 06:39
[2019-05-26] MEDS ORDERED: MULTIVITAMINS LIQUID 15 ML UDC PO SCH (07:00)
[2019-05-26 07:42] VITALS: BP 118/82
--- NOTE | 2019-05-26 09:32 | Diagnostic Imaging Report ---
Indication: Dyspnea. Time of exam: 2:47 AM Correlation is made to prior study from one day earlier. Tracheostomy tube has been removed. There are some mild residual airspace infiltrates noted in both lungs, similar to prior exam. No effusion or pneumothorax is seen. Impression: 1. Tracheostomy tube removal. 2. Stable bilateral airspace pulmonary infiltrates. Dictated by: Dictated on workstation # [id number]
[2019-05-26] MEDS: RT-LEVALBUTEROL (XOPENEX) 1.25 MG/3 ML NEB NON-FORMULARY INH SCH ×2 (09:55→14:41)
[2019-05-26] MEDS ORDERED: INSU100V5 SQ (10:11)
[2019-05-26] MEDS ORDERED: METO10TA3 PEG (10:11)
[2019-05-26] MEDS ORDERED: INSU100I14 SQ (10:11)
[2019-05-26] MEDS ORDERED: CITA20TA9 PEG (10:11)
[2019-05-26] MEDS ORDERED: METO50TA15 PEG (10:11)
--- NOTE | 2019-05-26 10:12 | Discharge Summary ---
Diagnosis/Chief Complaint Date of Admission May 24, 2019 at 14:00 Date of Discharge Discharge Date: May 26, 2019 Admission Diagnosis Assessment: s/p SVT episode s/p hypotension Recent critical illness for 35 days prior to rehab transfer Trach s/p DC today PEG will DC after 12 weeks if patient able to eat without aspiration Type 1 DM poorly controlled even before critical illness HGA1C 12/6 last month on admit Depression/bizarre behavior Plan: Bolus tube feeds to begin today with free water Monitor sugar with insulin Difficult issues considering poor compliance and demanding to leave tomorrow Discharge Diagnosis (1) SVT (supraventricular tachycardia) Status: Acute (2) Diabetic ketoacidosis Status: Acute (3) Epigastric pain Status: Chronic (4) Acute pancreatitis Status: Resolved (5) Cachexia Status: Acute (6) Anemia Status: Chronic (7) Leukocytosis Status: Acute (8) Myopathy Status: Acute (9) Respiratory failure Status: Acute (10) Electrolyte imbalance Status: Acute (11) Pneumonia Status: Resolved (12) Decubitus ulcer, heel Status: Acute (13) Poorly controlled diabetes mellitus Status: Chronic (14) Tracheostomy in place Status: Acute (15) Increased ammonia level Status: Resolved (16) DKA (diabetic ketoacidoses) Status: Acute (17) Altered mental status Status: Acute (18) PEG (percutaneous endoscopic gastrostomy) status Status: Acute (19) Hypotension Status: Resolved (20) Non-compliance Status: Chronic Discharge Summary Discharge Physical Exam Allergies: Coded Allergies: No Known Drug Allergies (Unverified , 06/23/09) Vitals & I&Os Vital Signs Date Time Temp Pulse Resp B/P (MAP) Pulse Ox O2 Delivery O2 Flow Rate FiO2 05/26/19 09:55 95 Room Air 05/26/19 07:42 98.4 93 20 118/82 (94) General Appearance: No Apparent Distress, WD/WN, Cachetic Neurologic/Psychiatric: Alert, Oriented x3 Hospital Course Was the Problem List Reviewed?: Yes Hospital course: Patient had a brief hospital course after he was transferred from inpatient rehabilitation to ICU due to episode of severe tachycardia with hypotension requiring aggressive IV fluids and close monitoring with cardiology consultation which revealed it was SVT that returned back to normal sinus rhythm. If this should recur he will need an EP study. His tube feedings were changed to bolus feeds with shrinkage and free water per dietary recommendations. Insulin was maintain although low-dose because of severe cachexia due to 80 pound weight loss in the last couple months and multiple hypoglycemic episodes. Reglan was maintained to help gastroparesis and slowed gastric emptying. Trachea been removed but he failed speech and swallow study and will need aggressive speech therapy in order to regain swallowing function. He is maintained on antidepressant as recommended from behavioral health consult. Although it was not recommended he insisted on returning home with his girlfriend was agreeable for home health and close follow-up with Dr. Escobedo on Wednesday at 1 but I still am requiring signing of the AGAINST MEDICAL ADVICE s juan alberto he needs approximate 5 more days to work on blood sugar control and to feeding bolus toleration along with monitoring of tachycardia and hypertension returned. Overall prognosis is very guarded considering his 40 day hospital stay due to DKA and septic shock with ventilator dependence requiring trach and PEG so we'll closely monitor in the meantime have close follow-up with Dr. Escobedo at 1 o'clock on Wednesday and hopefully he will be able to tolerate the feedings and maintain his insulin regimen for clinical stability. Labs (last 24 hrs) Laboratory Tests 05/25/19 11:41: Glucometer 109 05/25/19 16:03: Glucometer 326H 05/25/19 19:36: Glucometer 310H 05/25/19 23:18: Glucometer 48*L 05/25/19 23:49: Glucometer 76 05/26/19 00:32: Glucometer 43*L 05/26/19 01:02: Glucometer 101 05/26/19 02:01: Glucometer 86 05/26/19 03:56: Glucometer 148H 05/26/19 06:10: White Blood Count 9.3, Red Blood Count 3.85L, Hemoglobin 10.5L, Hematocrit 31L, Mean Corpuscular Volume 81, Mean Corpuscular Hemoglobin 27, Mean Corpuscular Hemoglobin Concent 34, Red Cell Distribution Width 13.2, Platelet Count 499H, Mean Platelet Volume 10.7H, Neutrophils (%) (Auto) 57, Lymphocytes (%) (Auto) 28, Monocytes (%) (Auto) 11, Eosinophils (%) (Auto) 4, Basophils (%) (Auto) 0, Neutrophils # (Auto) 5.3, Lymphocytes # (Auto) 2.6, Monocytes # (Auto) 1.0, Eos inophils # (Auto) 0.3, Basophils # (Auto) 0.0, Sodium Level 138, Potassium Level 3.8, Chloride Level 102, Carbon Dioxide Level 23, Anion Gap 13, Blood Urea Nitrogen 7, Creatinine 0.64, Estimat Glomerular Filtration Rate > 60, BUN/Creatinine Ratio 11, Glucose Level 205H, Calcium Level 10.2H, Phosphorus Level 4.8H, Magnesium Level 1.7L 05/26/19 07:44: Glucometer 312H Microbiology 05/25/19 Gram Stain - Final, Resulted 05/25/19 Sputum Culture, Resulted Pending Patient resulted labs reviewed. Pending Labs Laboratory Tests 05/26/19 03:56: Glucometer 148 05/26/19 06:10: White Blood Count 9.3, Red Blood Count 3.85, Hemoglobin 10.5, Hematocrit 31, Mean Corpuscular Volume 81, Mean Corpuscular Hemoglobin 27, Mean Corpuscular Hemoglobin Concent 34, Red Cell Distribution Width 13.2, Platelet Count 499, Mean Platelet Volume 10.7, Neutrophils (%) (Auto) 57, Lymphocytes (%) (Auto) 28, Monocytes (%) (Auto) 11, Eosinophils (%) (Auto) 4, Basophils (%) (Auto) 0, Neutrophils # (Auto) 5.3, Lymphocytes # (Auto) 2.6, Monocytes # (Auto) 1.0, Eosinophils # (Auto) 0.3, Basophils # (Auto) 0.0, Sodium Level 138, Potassium Level 3.8, Chloride Level 102, Carbon Dioxide Level 23, Anion Gap 13, Blood Urea Nitrogen 7, Creatinine 0.64, Estimat Glomerular Filtration Rate > 60, BUN/Creatinine Ratio 11, Glucose Level 205, Calcium Level 10.2, Phosphorus Level 4.8, Magnesium Level 1.7 05/26/19 07:44: Glucometer 312 Discussion & Recommendations Discharge Planning: <30 minutes discharge planning Discharge Home Medications: Active Scripts Active Levemir (Insulin Determir) 1,000 Units/10 Ml Soln 3 Unit SQ BID Metoclopramide HCl 10 Mg Tablet 10 Mg PEG TID Citalopram HBr (Citalopram Hydrobromide) 20 Mg Tablet 20 Mg PEG DAILY Metoprolol Tartrate 50 Mg Tablet 100 Mg PEG BID Novolog Flexpen (Insulin Aspart) 300 Units/3 Ml Solution 3 Units SQ ACHS 1 UNIT PER EVERY 10 GRAMS OF CARBS Reported Calcium 600 + Vit D 200 Tablet (Calcium Carbonate/Vitamin D3) 1 Each Tablet 1 Tab PO DAILY Lantus Solostar (Insulin Glargine,Hum.rec.anlog) 100 Unit/1 Ml Insuln.pen 60 Units SQ HS Instructions to patient/family Please see electronic discharge instructions given to patient. Clinical Quality Measures DVT/VTE Risk/Contraindication: Risk Factor Score Per Nursin RFS Level Per Nursing on Admit: 1=Low/No VTE PPX Problem Qualifiers (1) Diabetic ketoacidosis: Diabetes mellitus type: type 1 Diabetes mellitus complication detail: with coma Qualified Codes: E10.11 - Type 1 diabetes mellitus with ketoacidosis with coma (2) Acute pancreatitis: Acute pancreatitis complication: unspecified (3) Anemia: Anemia type: unspecified type Qualified Codes: D64.9 - Anemia, unspecified (4) Respiratory failure: Chronicity: unspecified Respiratory failure complication: unspecified whether with hypoxia or hypercapnia Qualified Codes: J96.90 - Respiratory failure, unspecified, unspecified whether with hypoxia or hypercapnia (5) Pneumonia: Laterality: unspecified laterality Lung location: unspecified part of lung (6) Decubitus ulcer, heel: Pressure injury stage: stage 2 STEVAN BURGOS DO May 26, 2019 10:12
--- NOTE | 2019-05-26 10:20 | Diagnostic Imaging Report ---
Indication: Recent tracheostomy with trach removal. Patient still has stoma. Study is performed to evaluate for aspiration. Study was performed in conjunction with speech pathology. Videofluoroscopy was performed during swallowing barium at multiple consistencies. Total of 1 minute 32 seconds of fluoroscopy was utilized. Patient was given applesauce consistency. There is moderate vallecular residue. There is poor epiglottic tilt and laryngeal elevation. Patient was unable to initiate a strong swallow. Patient was given a sip of water which did initiate immediate spontaneous cough, suggestive of aspiration. Therefore the procedure was terminated. Impression: Abnormal video swallow, as described. Dictated by: Dictated on workstation # [id number]
--- NOTE | 2019-05-26 10:22 | ST Mod Barium Swallow ---
Speech Evaluation-General Medical Diagnosis DKA Onset Date: May 25, 2019 Therapy Diagnosis Therapy Diagnosis: R13.12 PHARYNGEAL DYSPHAGIA Precautions Precautions: Aspiration Precautions/Isolations: Aspiration, Fall Prevention, Standard Precautions THE PATIENT INDICATED THAT HE IS VERY MOTIVATED TO RETURN TO EATING BY MOUTH. HE IS ANXIOUS TO RETURN HOME. Referral Referring Physician: Dr. Escobedo Reason for Referral: Evaluation/Treatment Medical History Pertinent Medical History: DM, Smoking THE PATIENT HAS A COMPLEX MEDICAL HISTORY WITH INTUBATION AND TRACH PLACEMENT. HE HAS A STOMA FOLLOWING REMOVAL OF THE TRACH. Reviewed History: Yes Social History Current Living Status: Significant Other (fiance) Speech Mod Barium Swallow Oral Motor Skills Lingual Protrusion: Normal Lingual ROM: Normal Lingual Strength: Normal Volitional Dry Swallow: No LARYNGEAL PUMPING OBSERVED Gag Reflex: Yes Voluntary Cough: Yes Voluntary Cough Comments: NONPRODUCTIVE Can Clear Throat Volitionally: Yes NONPRODUCTIVE Textures-Lateral View Lateral View Food Presentation: Pureed Solids Oral Phase Labial Closure: No Impairment (WFL) Bolus Formation Pooling L/R: No Impairment (WFL) Bolus Formation Placement: Minimal Impairment PUREED PRESENTATION WAS TRIALED FIRST DID NOT COMPLETE AN A/P VIEWING SECONDARY TO POOR ENDURANCE. Lingual Movement: No Impairment (WFL) LINGUAL MOVEMENT APPEARED FUNCTIONAL. Oral Phase Residue: No Impairment (WFL) Pharyngeal Phase Swallow Response: Severe Impairment Base of Tongue: Severe Impairment Epiglottic Movement: Severe Impairment Laryngeal Elevation: Severe Impairment LARYNGEAL PUMPING Vallecular Residue: Severe UNABLE TO CLEAR Pharyngeal Wall Residue: Mild PARTIAL CLEARING WITH REPEATED CUES TO SWALLOW Piriform Sinus Residue: Severe Laryngeal Penetration: Mild PUREED CONSISTENCY Aspiration Observations: Severe THIN LIQUID USED TO CLEAR (LESS THAN 1/3 TSP.) - PATIENT ASPIRATED THIS. Other Pharyngeal Observations: THE BOLUS TRIAL SAT IN THE VALLECULA AND IN THE PIRIFORMS. Esophageal Phase UNABLE TO SEE THIS DID NOT COMPLETE A/P VIEW Performed-A/P View Not Applicable/Performed Summary/Impressions Oral Phase Impression: Minimal Impairment THE PATIENT PRESENTS WITH PHARYNGEAL DYSPHAGIA SECONDARY TO ASPIRATION AND PENETRATION. THE PATIENT HAS POOR VF CLOSURE AND DECREASED INTRAORAL PRESSURE, MAKING EXECUTION OF THE PHARYNGEAL SWALLOW DIFFICULT. HE WOULD BENEFIT FROM VOICING, PARTICULARLY ADDUCTION EXERCISES AND BREATH CONTROL ACTIVITIES IN HIS REHAB PLAN. Speech Short Term Goals Short Term Goals Short Term Goals 1) The patient will tolerate least restrictive diet without s/s of aspiration for 90% or greater. 2) The patient will utilize compensatory strategies as trained at 90% or greater. 3) THE PATIENT WILL COMPLETE VF ADDUCTION EXERCISES TO IMPROVE AIRWAY CLOSURE FOR 8/10 TRIALS. 4) THE PATIENT WILL BE ABLE TO COMPLETE BREATHING TASKS TO IMPROVE VOICING FOR SAFETY IN AIRWAY PROTECTION AND OVERLAY OF VOICING WITH 8/10 TASKS WITHOUT CUES. 5) GIVEN AIRWAY PROTECTION EXERCISES (COUGH - THROAT CLEAR), THE PATIENT WILL BE ABLE TO PERFORM THESE TASKS PRIOR TO ADMINISTERING ORAL TRIALS IN 9/10 TRIALS. Speech Crtt Goals Snf Goals The patient will maintain adequate nutrition/hydration via safe effective swallow function. 2. THE PATIENT & CAREGIVERS WILL PROVIDE VERBAL UNDERSTANDING OF DIETARY PROGRESSION WITHOUT CUES. 3. GIVEN AT-HOME ACTIVITIES FOR VOICING ACTIVITIES, THE PATIENT WILL BE ABLE TO COMPLETE THESE WITHOUT CUES. 4. THE PATIENT WILL VERBALIZE HIS UNDERSTANDING OF COMPENSATORY SWALLOW STR ATEGIES, WHEN APPLICABLE TO EATING, WITHOUT CUES. 5. THE PATIENT WILL BE ABLE TO DEMONSTRATE UNDERSTANDING OF SWALLOW FUNCTION AND SAFETY WHEN ASKED, WITHOUT CUES. Speech-Plan Patient/Family Goals Patient/Family Goals: SWALLOW SAFETY Treatment Plan Speech Therapy Treatment Plan: Modify Plan, See Comments PLEASE ADD VF ADDUCTION EXERCISES TO POC. Treatment Duration: May 31, 2019 Frequency: 5 times per week Estimated Hrs Per Day: .25 hour per day Rehab Potential: Fair Pt/Family Agrees to Plan: Yes Safety Risks/Education Teaching Recipient: Patient Teaching Methods: Demonstration, Discussion Response to Teaching: Verbalize Understanding Education Topics Provided: NPO STATUS AND ASPIRATION RISKS Time Speech Therapy Time In: 09:25 Speech Therapy Time Out: 09:55 Total Billed Time: 30 Billed Treatment Time 1, MOD No CHARLOTTEBRYAN May 26, 2019 10:22
[2019-05-26] MEDS: LACTOBACILLUS ACIDOPHILUS (PROBIOTIC) CAPSULE PEG SCH (10:39)
[2019-05-26] MEDS: METOCLOPRAMIDE 10 MG (REGLAN) TAB PEG SCH (10:39)
[2019-05-26] MEDS: meTOprolol TARTRATE 50 MG (LOPRESSOR) TAB PEG SCH (10:39)
[2019-05-26] MEDS: ENOXAPARIN 30 MG/0.3 ML (LOVENOX) SYR SC SCH (10:40)
--- NOTE | 2019-05-26 10:58 | D/C HH Face to Face Order ---
D/C Face to Face Orders Instructions for Patient Via [facility], Patient Instructions/FollowUp: PCP in 1 week Physician to follow Patient: Dr Linn Discharge Diet for Home: ADA Diet Patient Problems: DM Type 1 Trach removed PEG Goals for Patient: DC Peg and return to independent living Patient Data-Allergies,Ht & Wt Patient Allergies: Coded Allergies: No Known Drug Allergies (Unverified , 06/23/09) Height (Feet): 5 Height (Inches): 11.00 Weight (Pounds): 97 Weight (Ounces): 2.0 Home Health Need/Face to Face Date of Face to Face: May 26, 2019 Clinical Findings: Generalized weakness and fatigue, Muscle weakness I have seen Pt [id number]: Yes Discharged To: Home Diagnosis/Conditions: DM Type 1 Trach removed PEG Patient is Homebound due to: Jesus fall risk due to instabilty, Muscle weakness Homebound Status Due to the above stated illness, injury or surgical procedure (medical condition or diagnosis) and associated clinical findings, the patient is homebound because of his/her inability to leave home except with aid of a supportive device and/or person AND leaving the home requires a considerable and taxing effort or is medically contraindicated. Pt req the following assistanc: Walker Home Health Nursing Orders Home Health Services Order: Nursing Services, Journalism Professor-Evaluate & Treat, Physical Therapy-Evaluate & Treat Certify Stmt I certify that this patient is under my care and that I, a nurse practitioner or a physician; a perioperative assistant working with me, had a face to face encounter that - meets the physician face to face encounter requirements with this patient as dated. STEVAN BURGOS DO May 26, 2019 10:58
--- NOTE | 2019-05-26 11:05 | NUR ---
Spoke with pt reference PEG tube and feeding. Reviewed how to use PEG tube for feeding and flushing with water. Reviewed S/SX of infection. Handout given with instruction that were reviewed. Pt verbalized no question or concerns at this time. Spoke with RN caring for pt about having pt participate in feeding during the remainder of his stay.
--- NOTE | 2019-05-26 11:14 | D/C HH Face to Face Order ---
D/C Face to Face Orders Instructions for Patient Via [facility], Patient Instructions/FollowUp: [facility] establishment care Dr Escobedo 05/30/19 100pm Physician to follow Patient: DR Castro Escobedo Discharge Diet for Home: Tube Feeding, other diet (NPO) Patient Problems: DM Type 1 OOC PEG Trach Patient Data-Allergies,Ht & Wt Patient Allergies: Coded Allergies: No Known Drug Allergies (Unverified , 06/23/09) Height (Feet): 5 Height (Inches): 11.00 Weight (Pounds): 97 Weight (Ounces): 2.0 Home Health Need/Face to Face Date of Face to Face: May 26, 2019 Clinical Findings: Generalized weakness and fatigue, Muscle weakness I have seen Pt [id number]: Yes Discharged To: Home Diagnosis/Conditions: DM Type 1 Trach removed PEG Patient is Homebound due to: Jesus fall risk due to instabilty, Muscle weakness Homebound Status Due to the above stated illness, injury or surgical procedure (medical condition or diagnosis) and associated clinical findings, the patient is homebound because of his/her inability to leave home except with aid of a supportive device and/or person AND leaving the home requires a considerable and taxing effort or is medically contraindicated. Pt req the following assistanc: Aid of another person Home Health Nursing Orders Home Health Services Order: Nursing Services, Front End Assistant-Evaluate & Treat, Physical Therapy-Evaluate & Treat, Speech Language-Evaluate & Treat Certify Stmt I certify that this patient is under my care and that I, a nurse practitioner or a physician; a licensed investment sales assistant working with me, had a face to face encounter that - meets the physician face to face encounter requirements with this patient as dated. STEVAN BURGOS DO May 26, 2019 11:14
[2019-05-26 11:36] VITALS: BP 118/81
--- NOTE | 2019-05-26 12:32 | Cardiology Progress Note ---
Cardiology SOAP Progress Note Subjective: No further tachycardia. Objective: I&O/Vital Signs 05/26/19 05/26/19 05/26/19 05/26/19 01:00 02:55 03:59 07:00 Temp 98.5 Pulse 94 98 117 Resp 18 B/P (MAP) 118/76 (90) Pulse Ox 92 94 O2 Delivery Room Air Room Air 05/26/19 05/26/19 05/26/19 07:42 09:55 11:36 Temp 98.4 98.2 Pulse 93 100 Resp 20 22 B/P (MAP) 118/82 (94) 118/81 (93) Pulse Ox 92 95 98 O2 Delivery Room Air Room Air Room Air 05/26/19 00:00 Intake Total 1250 ml Output Total 1550 ml Balance -300 ml Weight (Pounds): 97 Weight (Ounces): 2.0 Weight (Calculated Kilograms): 44.246572 Constitutional: AAO x 3 Respiratory: chest is bilaterally symmetric, lungs clear to auscultation Cardiovascular: regular rate-rhythm, tachycardia, S1 and S2 Gastrointestional: No tender, No soft, No round, No distended, No pulsatile mass, No organomegaly, No guarding, No rebound, No tenderness, No hernia, No mass, No audible bowel sounds, No abnormal bowel sounds, No abdominal bruits, No spleenomegaly, No other Neurologic/Psychiatric: no motor/sensory deficits, alert, normal mood/affect, oriented x 3 Results/Procedures: Labs Laboratory Tests 05/25/19 16:03: Glucometer 326H 05/25/19 19:36: Glucometer 310H 05/25/19 23:18: Glucometer 48*L 05/25/19 23:49: Glucometer 76 05/26/19 00:32: Glucometer 43*L 05/26/19 01:02: Glucometer 101 05/26/19 02:01: Glucometer 86 05/26/19 03:56: Glucometer 148H 05/26/19 06:10: White Blood Count 9.3, Red Blood Count 3.85L, Hemoglobin 10.5L, Hematocrit 31L, Mean Corpuscular Volume 81, Mean Corpuscular Hemoglobin 27, Mean Corpuscular Hemoglobin Concent 34, Red Cell Distribution Width 13.2, Platelet Count 499H, Mean Platelet Volume 10.7H, Neutrophils (%) (Auto) 57, Lymphocytes (%) (Auto) 28, Monocytes (%) (Auto) 11, Eosinophils (%) (Auto) 4, Basophils (%) (Auto) 0, Neutrophils # (Auto) 5.3, Lymphocytes # (Auto) 2.6, Monocytes # (Auto) 1.0, Eosinophils # (Auto) 0.3, Basophils # (Auto) 0.0, Sodium Level 138, Potassium Level 3.8, Chloride Level 102, Carbon Dioxide Level 23, Anion Gap 13, Blood Urea Nitrogen 7, Creatinine 0.64, Estimat Glomerular Filtration Rate > 60, BUN/Creatinine Ratio 11, Glucose Level 205H, Calcium Level 10.2H, Phosphorus Level 4.8H, Magnesium Level 1.7L 05/26/19 07:44: Glucometer 312H 05/26/19 11:42: Glucometer 237H Microbiology 05/25/19 Gram Stain - Final, Resulted 05/25/19 Sputum Culture, Resulted Pending A/P: Assessment/Dx: PSVT, converted to sinus rhythm. Plan: Change IV Lopressor to by mouth Lopressor 100 mg twice a day. Patient will require EP study and possible PSVT ablation after discharge. Follow-up with cardiology in 4 weeks. Thank you for your consultation. Please call me if you have any questions. Lesly Alonzo MD, FACP, FACC, FSCAI, FHRS, CCDS Interventional Cardiology Cardiac Electrophysiology Vascular Medicine and Endovascular Interventions Shahram ALONZO MD May 26, 2019 12:32
--- NOTE | 2019-05-26 12:44 | NUR ---
CM/SS Information for discharge faxed to DME for the tube feeding Glucerna, they will have to overnight order it from [facility] and it would be available Tuesday 05/29. Nutritional services at the hospital will provide a case of the Glucerna for the patient to get him through 05/29. HHC orders were put in and sent to HHC.
--- NOTE | 2019-05-26 14:16 | Occ Therapy Progress Note ---
Therapy Progress Note Pt resting in bed, plans to discharge today. Pt declined therapy and has no questions or concerns at this time. Denies needs. COSMO CHAVIS OT May 26, 2019 14:16
[2019-05-26 15:00] VITALS: BP 122/79
--- NOTE | 2019-05-26 15:16 | NUR ---
CM/SS HHC was explored for the patient. [place], [place] and [place] do not cover the area or are not able to take the insurance. Patient's insurance was then called and patient does not have benefits for in home health care, he could qualify for outpatient pt / ot $50/day up to $2000. Patient will also be responsible for a portion of prescription costs. Spoke with the patient about the cost he will incur, he did not have much response expect "thank you".
[2019-05-26 20:09] VITALS: BP 122/79
--- NOTE | 2019-05-31 11:03 | Physician Query Clarification ---
PQ-Uncertain Diagnosis Admission/Discharge Admission Date: May 24, 2019 at 14:00 Discharge Date: May 26, 2019 at 16:33 The medical record reflects the following clinical scenario: History/Risk Factors: Critical illness myopathy, DM 1 Clinical Findings: Glucose ranging between 330-43 Treatment: Sliding scale insulin Question: Is Diabetic ketoacidosis still a clinically valid diagnosis for this hospital stay 05/24 - 05/27? Diabetic ketoacidosis was documented in the discharge diagnoses/problem list on the H&P and DS with no further documentation in the medical record. Please document a response in Progress Note or Discharge Summary. 1. Yes, clinically valid for this patient stay.. 2. No, condition resolved prior to this admission stay. 3. Other, with explanation of clinical findings. 4. Undetermined, no explanation for clinical findings. PHYSICIAN RESPONSE Diagnosis clinically valid: No, conditon ruled out Please remember a lack of response to the above will prompt a phone page by CDI/Coding staff. In responding to this query, please exercise your independent professional judgment. The purpose of this communication is to more accurately reflect the complexity of your patients condition. The fact that a question is asked does not imply that any particular answer is desired or expected. Thank you for your timely response to this clarification. Requestors name: Tatiana THIS PHYSICIAN QUERY FORM IS A PERMANENT PART OF THE MEDICAL RECORD TATIANA CARTER May 31, 2019 11:03 STEVAN BURGOS DO May 31, 2019 21:36
--- NOTE | 2019-05-31 11:11 | Physician Query Clarification ---
PQ-Conflicting Diagnosis Admission/Discharge Admission Date: May 24, 2019 at 14:00 Discharge Date: May 26, 2019 at 16:33 The medical record reflects the following clinical scenario: History/Risk Factors: critical illness myopathy, DM type 1, tracheostomy status, PEG status Clinical Findings: sputum pseudomonas, staph aureus collected 05/25 resulted 05/26, H&P: and DS state pneumonia resolved. 05/[address] Escobedo states pneumonia improving Treatment: No ABX documented Question: Do you agree with the impression of resolving pneumonia as an active diagnosis during this admission 05/24 - 05/[address] Escobedo. Please document a response in Progress Note or Discharge Summary. 1. Yes 2. No 3. Other, with explanation of clinical findings 4. Clinically undetermined, no explanation for clinical findings. PHYSICIAN RESPONSE Do you agree w/Consulting Dx?: Yes Please remember a lack of response to the above will prompt a phone page by CDI/Coding staff. In responding to this query, please exercise your independent professional j udgment. The purpose of this communication is to more accurately reflect the complexity of your patients condition. The fact that a question is asked does not imply that any particular answer is desired or expected. Thank you for your timely response to this clarification. Requestors name: Tatiana THIS PHYSICIAN QUERY FORM IS A PERMANENT PART OF THE MEDICAL RECORD TATIANA CARTER May 31, 2019 11:11 STEVNA BURGOS DO May 31, 2019 21:37
== END 2019-05-26 16:33 | disposition left against medical advice (07) | DRG 308 ==
LOC: ICU 14:00 → 4TH 05-25 08:15
PROVIDERS: ADMIT Internal Medicine; ATTEND Internal Medicine
DX: I47.1 Supraventricular tachycardia (principal); I95.9 Hypotension, unspecified; G72.81 Critical illness myopathy; J18.9 Pneumonia, unspecified organism; E10.43 Type 1 diabetes mellitus with diabetic autonomic (poly)neuropathy; E10.65 Type 1 diabetes mellitus with hyperglycemia; R64 Cachexia; Z93.1 Gastrostomy status; Z93.0 Tracheostomy status; L89.622 Pressure ulcer of left heel, stage 2; K31.89 Other diseases of stomach and duodenum; D64.9 Anemia, unspecified; Z91.19 Patient's noncompliance with other medical treatment and regimen; F32.9 Major depressive disorder, single episode, unspecified
CPT/HCPCS: 36415; 71045; 74230; 80048; 82962; 83735; 84100; 85025; 87070; 87077; 87186; 87205; 94640; 94664

== ENCOUNTER → 2019-06-06 | Outpatient (CLI) | payer OTHER ==
[~2019-06-06] MED LIST changes: +CITA20TA9 PEG; +INSU100V5 SQ; +METO10TA3 PEG; +METO50TA15 PEG
[2019-06-06 15:29] LABS: BUN/CREATININE RATIO 17; CREATININE SERUM 0.75 MG/DL (0.60-1.30); GFR ESTIMATED > 60
--- NOTE | 2019-06-06 16:05 | Diagnostic Imaging Report ---
PROCEDURE: CT chest with contrast only. TECHNIQUE: Multiple contiguous axial images were obtained through the chest after administration of intravenous contrast. Auto Exposure Controls were utilized during the CT exam to meet ALARA standards for radiation dose reduction. INDICATION: Pneumonia. FINDINGS: Comparison is 05/13/2019. There has been improvement in the now moderate bilateral centrilobular and tree in bud nodules throughout both lungs with a predominantly central distribution. There is no significant septal line thickening. No pneumothorax or pleural effusion. Heart size normal. No pericardial effusion. Aorta is normal in caliber. No axillary, supraclavicular or mediastinal lymphadenopathy. Limited views of the upper abdomen reveal gastrostomy tube. There are no suspicious osseous lesions. IMPRESSION: 1. Significant improvement in the now moderate bilateral centrilobular and tree in bud nodules with a central predominance suggestive of an infectious process. Considerations include atypical organisms such as fungi. Dictated by: Dictated on workstation # [id number]
== END ==
LOC: RAD 14:54
PROVIDERS: ATTEND Nurse Practitioner Family
DX: J18.9 Pneumonia, unspecified organism (principal); J30.9 Allergic rhinitis, unspecified; R91.8 Other nonspecific abnormal finding of lung field
CPT/HCPCS: 36415; 71260; 82565; 84520

== ENCOUNTER 2019-06-12 12:11 | Inpatient (IN) | payer OTHER | END 2019-06-12 18:45 | disposition left against medical advice (07) | LOC: ER 12:11 → ICU 14:38 ==

== ENCOUNTER 2019-06-27 20:36 | Emergency (ER) | payer OTHER ==
[~2019-06-27] VITALS: Ht 177.8 cm; Wt 40.8 kg
[2019-06-27] MEDS ORDERED: RT-ALBUTEROL/IPRATROPIUM 3 ML (DUONEB) VIAL ONE (20:38)
[2019-06-27] MEDS ORDERED: ETOMIDATE IV SOLN 20 MG/10 ML VIAL IV ONE (20:39)
[2019-06-27] MEDS ORDERED: SUCCINYLCHOLINE INJ 100 MG/5 ML SYR INJ ONE (20:39)
[2019-06-27] MEDS ORDERED: NS IV 1000 ML 1,000 ML IV SCH (20:44)
[2019-06-27] MEDS ORDERED: RT-ALBUTEROL/IPRATROPIUM 3 ML (DUONEB) VIAL INH ONE ×2 (20:45→21:45)
[2019-06-27 20:56] LABS: BASOPHILS # (AUTO) 0.1 10^3/uL (0.0-0.1); BASOPHILS % (AUTO) 0 % (0-10); EOSINOPHILS # (AUTO) 0.2 10^3/uL (0.0-0.3); EOSINOPHILS % (AUTO) 1 % (0-10); HEMATOCRIT 38 % (40-54); HEMOGLOBIN 12.3 G/DL (13.3-17.7); LYMPHOCYTES # (AUTO) 3.1 X 10^3 (1.0-4.0); LYMPHOCYTES % (AUTO) 17 % (12-44); MEAN CORPUSCULAR HEMOGLOBIN 26 PG (25-34); MEAN CORPUSCULAR HGB CONC 33 G/DL (32-36); MEAN CORPUSCULAR VOLUME 80 FL (80-99); MEAN PLATELET VOLUME 10.8 FL (7.4-10.4); MONOCYTES # (AUTO) 1.1 X 10^3 (0.0-1.0); MONOCYTES % (AUTO) 6 % (0-12); NEUTROPHILS % (AUTO) 76 % (42-75); PLATELET COUNT 709 10^3/uL (130-400); RED CELL DISTRIBUTION WIDTH 12.9 % (10.0-14.5); WHITE BLOOD COUNT 18.4 10^3/uL (4.3-11.0)
[2019-06-27 20:57] LABS: ABG BASE EXCESS 4.5 MMOL/L (-2.5-2.5); ABG OXYGEN SATURATION 98 % (94-100); ABG PCO2 43 MMHG (35-45); ABG PH 7.43 (7.37-7.43); ABG PO2 92 MMHG (79-93); ABG TCO2 30.1 MMOL/L (21.0-31.0)
[2019-06-27] MEDS ORDERED: inSUlin (REGULAR) HUMAN 1 UNIT/0.01 ML (CHARGE PER UNIT) IV ONE ×2 (21:00→22:15)
--- NOTE | 2019-06-27 21:02 | ED General ---
General Chief Complaint: Respiratory Problems Stated Complaint: SOB Nursing Triage Note: Pt to room #1 via ED w/c by ED staff with c/o SOA. Upon arrival pt seated in tripod position with labored breathing noted. Pt reports he began to feel SOA yesterday and has increased in severity throughout this day. Denies recent fver or chills. Source of Information: Patient, Old Records Exam Limitations: No Limitations History of Present Illness Date Seen by Provider: Jun 27, 2019 Time Seen by Provider: 20:38 Initial Comments This 18-year-old man presents to the emergency room with complaints of difficulty breathing. He is cachectic and appears in moderate respiratory distress. He was recently admitted in April of this year with severe DKA with coma and pneumonia requiring intubation for respiratory failure. He has a fe eding tube which was placed due to problems with aspiration. Patient was most recently admitted June 12 for bilateral pneumonia but he left AGAINST MEDICAL ADVICE before being seen by the hospitalist. Heart rate is in the 140s. Sepsis and DKA are suspected. Patient is a poor historian and much of his history is obtained from the chart. Allergies and Home Medications Allergies Coded Allergies: No Known Drug Allergies (Unverified , 06/23/09) Home Medications Citalopram Hydrobromide 20 Mg Tablet, 20 MG PEG DAILY Prescribed by: STEVAN BURGOS on 05/26/19 1011 Insulin Aspart 300 Units/3 Ml Solution, 3 UNITS SQ ACHS 1 UNIT PER EVERY 10 GRAMS OF CARBS Prescribed by: STEVAN BURGOS on 05/26/19 1011 Insulin Determir 1,000 Units/10 Ml Soln, 3 UNIT SQ BID Prescribed by: STEVAN BURGOS on 05/26/19 1011 Metoclopramide HCl 10 Mg Tablet, 10 MG PEG TID Prescribed by: STEVAN BURGOS on 05/26/19 1011 Metoprolol Tartrate 50 Mg Tablet, 100 MG PEG BID Prescribed by: STEVAN BURGOS on 05/26/19 1011 Patient Home Medication List Home Medication List Reviewed: Yes Review of Systems Review of Systems Constitutional: see HPI EENTM: see HPI Respiratory: see HPI Cardiovascular: see HPI Gastrointestinal: see HPI Genitourinary: no symptoms reported Musculoskeletal: no symptoms reported Skin: no symptoms reported Psychiatric/Neurological: No Symptoms Reported Hematologic/Lymphatic: No Symptoms Reported Immunological/Allergic: no symptoms reported Past Vtprjxi-Azpvlu-Syixxx Hx Past Med/Social Hx: Reviewed and Corrections made Patient Social History Type Used: Cigarettes 2nd Hand Smoke Exposure: No Recent Foreign Travel: No Contact w/Someone Who Travel: No Recent Infectious Disease Expo: No Recent Hopitalizations: Yes (DKA D/C 05/26/19) Ebola Symptoms: Weakness Immunizations Up To Date Tetanus Booster (TDap): Unknown Seasonal Allergies Seasonal Allergies: No Past Medical History Surgeries: Yes (trach, peg tube) Respiratory: Yes (TRACH, history of respiratory failure and intubation) Pneumonia Currently Using CPAP: No Currently Using BIPAP: No Cardiac: Yes (tachycardia) Neurological: No Reproductive Disorders: No Sexually Transmitted Disease: No HIV/AIDS: No Genitourinary: No Gastrointestinal: Yes (WT LOSS/peg tube placement) Gastroesophageal Reflux Musculoskeletal: No Endocrine: Yes (MULTIPLE EPISODES OF DKA) Diabetes, Insulin dep HEENT: No Loss of Vision: Denies Hearing Impairment: Denies Cancer: No Psychosocial: No Integumentary: No Recent Skin Changes Blood Disorders: No Adverse Reaction/Blood Tranf: No Family Medical History Patient reports no known family medical history. Other Conditions/Hx Physical Exam-Suspected Sepsis Physical Exam Vital Signs Vital Signs - First Documented 06/27/19 20:39 Temp 97.4 Pulse 140 Resp 30 B/P (MAP) 149/109 Pulse Ox 97 O2 Delivery Nasal Cannula O2 Flow Rate 4.00 Capillary Refill : Height, Weight, BMI Height: 5'10.00" Weight: 105lbs. 8.0oz. 47.560649ao; 14.06 BMI Method:Stated General Appearance: WD/WN, Cachetic, Moderate Distress HEENT: PERRL/EOMI, Other (oropharynx dry, lips dry and cracked) Neck: Normal Inspection Respiratory: Accessory Muscle Use, Decreased Breath Sounds, Stridor Cardiovascular: No Edema, Tachycardia Gastrointestinal: Normal Bowel Sounds, Soft, Other (PEG tube intact) Extremity: Normal Inspection Neurologic/Psychiatric: Alert, Oriented x3, No Motor/Sensory Deficits, figure skater II- XII Norm as Tested Skin: normal color, warm/dry Focused Exam Lactate Level 06/27/19 20:58: Lactic Acid Level 2.57*H 06/27/19 23:43: Lactic Acid Level 4.04*H Lactic Acid Level Procedures/Interventions Date of ETT Placement: May 05, 2019 Time of ETT Placement: 1056 Progress/Results/Core Measures Suspected Sepsis SIRS Temperature:97.4 Pulse: Respiratory Rate: Laboratory Tests 06/27/19 20:47: White Blood Count 18.4H Blood Pressure / Mean: 06/27/19 20:58: Lactic Acid Level 2.57*H 06/27/19 23:43: Lactic Acid Level 4.04*H Laboratory Tests 06/27/19 20:47: Creatinine 0.87, INR Comment 0.9, Platelet Count 709H, Total Bilirubin 0.3 Results/Orders Lab Results Laboratory Tests Test 06/27/19 20:45 06/27/19 20:47 06/27/19 20:50 06/27/19 20:58 Range/Units Glucometer 459 *H 70-110 MG/DL White Blood Count 18.4 H 4.3-11.0 10^3/uL Red Blood Count 4.70 4.35-5.85 10^6/uL Hemoglobin 12.3 L 13.3-17.7 G/DL Hematocrit 38 L 40-54 % Mean Corpuscular Volume 80 80-99 FL Mean Corpuscular Hemoglobin 26 25-34 PG Mean Corpuscular Hemoglobin Concent 33 32-36 G/DL Red Cell Distribution Width 12.9 10.0-14.5 % Platelet Count 709 H 130-400 10^3/uL Mean Platelet Volume 10.8 H 7.4-10.4 FL Neutrophils (%) (Auto) 76 H 42-75 % Lymphocytes (%) (Auto) 17 12-44 % Monocytes (%) (Auto) 6 0-12 % Eosinophils (%) (Auto) 1 0-10 % Basophils (%) (Auto) 0 0-10 % Neutrophils # (Auto) 14.0 H 1.8-7.8 X 10^3 Lymphocytes # (Auto) 3.1 1.0-4.0 X 10^3 Monocytes # (Auto) 1.1 H 0.0-1.0 X 10^3 Eosinophils # (Auto) 0.2 0.0-0.3 10^3/uL Basophils # (Auto) 0.1 0.0-0.1 10^3/uL Neutrophils % (Manual) 77 % Lymphocytes % (Manual) 11 % Monocytes % (Manual) 8 % Eosinophils % (Manual) 1 % Band Neutrophils 3 % Blood Morphology Comment NORMAL Prothrombin Time 13.0 12.2-14.7 SEC INR Comment 0.9 0.8-1.4 Activated Partial Thromboplast Time 29 24-35 SEC Sodium Level 136 135-145 MMOL/L Potassium Level 4.3 3.6-5.0 MMOL/L Chloride Level 95 L 98-107 MMOL/L Carbon Dioxide Level 26 21-32 MMOL/L Anion Gap 15 H 5-14 MMOL/L Blood Urea Nitrogen 15 7-18 MG/DL Creatinine 0.87 0.60-1.30 MG/DL Estimat Glomerular Filtration Rate > 60 BUN/Creatinine Ratio 17 Glucose Level 492 *H 70-105 MG/DL Calcium Level 11.7 H 8.5-10.1 MG/DL Corrected Calcium 11.8 H 8.5-10.1 MG/DL Total Bilirubin 0.3 0.1-1.0 MG/DL Aspartate Amino Transf (AST/SGOT) 16 5-34 U/L Alanine Aminotransferase (ALT/SGPT) 13 0-55 U/L Alkaline Phosphatase 129 40-136 U/L Total Creatine Kinase 15 L 30-200 U/L C-Reactive Protein High Sensitivity 2.08 H 0.00-0.50 MG/DL Total Protein 8.4 H 6.4-8.2 GM/DL Albumin 3.9 3.2-4.5 GM/DL Blood Gas Puncture Site RIGHT RADIAL Blood Gas Patient Temperature 97.4 Arterial Blood pH 7.43 7.37-7.43 Arterial Blood Partial Pressure CO2 43 35-45 MMHG Arterial Blood Partial Pressure O2 92 79-93 MMHG Arterial Blood HCO3 29 H 23-27 MMOL/L Arterial Blood Total CO2 30.1 21.0-31.0 MMOL/L Arterial Blood Oxygen Saturation 98 94-100 % Arterial Blood Base Excess 4.5 H -2.5-2.5 MMOL/L Teo Test YES-POS Blood Gas Ventilator Setting NO Blood Gas Inspired Oxygen 5L Lactic Acid Level 2.57 *H 0.50-2.00 MMOL/L Test 06/27/19 21:27 06/27/19 21:58 06/27/19 23:43 06/27/19 23:45 Range/Units Urine Color YELLOW Urine Clarity CLEAR Urine pH 7 5-9 Urine Specific [place] 1.010 L 1.016-1.022 Urine Protein 1+ H NEGATIVE Urine Glucose (UA) 4+ H NEGATIVE Urine Ketones NEGATIVE NEGATIVE Urine Nitrite NEGATIVE NEGATIVE Urine Bilirubin NEGATIVE NEGATIVE Urine Urobilinogen NORMAL NORMAL MG/DL Urine Leukocyte Esterase NEGATIVE NEGATIVE Urine RBC (Auto) NEGATIVE NEGATIVE Urine RBC NONE /HPF Urine WBC RARE /HPF Urine Crystals NONE /LPF Urine Bacteria FEW H /HPF Urine Casts NONE /LPF Urine Mucus NEGATIVE /LPF Urine Culture Indicated NO Glucometer 429 *H 70-110 MG/DL Lactic Acid Level 4.04 *H 0.50-2.00 MMOL/L Blood Gas Puncture Site RIGHT RADIAL Blood Gas Patient Temperature 99.1 Arterial Blood pH 7.35 L 7.37-7.43 Arterial Blood Partial Pressure CO2 47 H 35-45 MMHG Arterial Blood Partial Pressure O2 399 H 79-93 MMHG Arterial Blood HCO3 25 23-27 MMOL/L Arterial Blood Total CO2 26.2 21.0-31.0 MMOL/L Arterial Blood Oxygen Saturation 100 94-100 % Arterial Blood Base Excess 0.1 -2.5-2.5 MMOL/L Teo Test YES-POS Blood Gas Ventilator Setting NO Blood Gas Inspired Oxygen 100% Test 06/27/19 23:57 Range/Units Glucometer 447 *H 70-110 MG/DL My Orders Orders - BHAVESH TOWNSEND MD Albuterol/Ipra Inhalation Soln (Duoneb I (06/27/19 20:45) Svn Small Volume Nebulizer (06/27/19 20:44) Albuterol/Ipra Inhalation Soln (Duoneb I (06/27/19 20:38) Cbc With Automated Diff (06/27/19 20:44) Comprehensive Metabolic Panel (06/27/19 20:44) Blood Culture (06/27/19 20:44) Sputum Culture (06/27/19 20:44) Urinalysis (06/27/19 20:44) Urine Culture (06/27/19 20:44) Protime With Inr (06/27/19 20:44) Partial Thromboplastin Time (06/27/19 20:44) Chest 1 View, Ap/Pa Only (06/27/19 20:44) Ed Iv/Invasive Line Start (06/27/19 20:44) Ed Iv/Invasive Line Start (06/27/19 20:44) Vital Signs Adult Sepsis Patie Q15M (06/27/19 20:44) O2 (06/27/19 20:44) Remove Rings In Anticipation O (06/27/19 20:44) Lactic Acid Analyzer (06/27/19 20:44) Ns Iv 1000 Ml (Sodium Chloride 0.9%) (06/27/19 20:44) Accucheck Stat ONCE (06/27/19 20:44) Arterial Blood Gas (06/27/19 20:44) Insulin (Regular) Human (Humulin R (Per (06/27/19 21:00) Creatine Kinase (06/27/19 20:53) Ekg Tracing (06/27/19 21:02) Manual Differential (06/27/19 20:47) Piperacillin/Tazobactam (Bulk) (Zosyn In (06/27/19 21:15) Piperacillin Sodium/Tazobactam (Zosyn Vi (06/27/19 21:17) Ns (Ivpb) (Sodium Chloride 0.9% Ivpb Bag (06/27/19 21:17) Hs C Reactive Protein (06/27/19 21:25) Lactated Ringers (Lr 1000 Ml Iv Solution (06/27/19 21:26) Accucheck Stat ONCE (06/27/19 21:27) Arterial Blood Draw (06/27/19 ) Albuterol/Ipra Inhalation Soln (Duoneb I (06/27/19 21:45) Svn Small Volume Nebulizer (06/27/19 21:38) Insulin (Regular) Human (Humulin R (Per (06/27/19 22:15) Accucheck Stat ONCE (06/27/19 22:08) Methylprednisolone Sod Succ (Solu-Medrol (06/27/19 22:29) Dexamethasone Injection (Decadron Inject (06/27/19 22:30) Dexamethasone Injection (Decadron Inject (06/27/19 22:30) Acetylcysteine (Rt Or Po Use) (Mucomyst (06/27/19 22:45) Albuterol Pre-Mix Nebs (Rt) (Proventil (06/27/19 22:44) Svn Small Volume Nebulizer (06/27/19 22:44) Soft Tissue Neck (06/27/19 22:50) Chest 1 View, Ap/Pa Only (06/27/19 ) Lidocaine 1% Inj 20 Ml (Xylocaine 1% Inj (06/27/19 23:06) Propofol Drip (Icu) (Diprivan Drip (Icu) (06/27/19 23:11) Arterial Blood Gas (06/27/19 23:50) Ns Iv 1000 Ml (Sodium Chloride 0.9%) (06/27/19 23:52) Accucheck Stat ONCE (06/27/19 23:52) Ns Iv 1000 Ml (Sodium Chloride 0.9%) (06/27/19 23:46) Insulin (Regular) Human (Humulin R (Per (06/28/19 00:15) Chest 1 View, Ap/Pa Only (06/28/19 00:26) Methylprednisolone Sod Succ (Solu-Medrol (06/28/19 04:30) Propofol Drip (Icu) (Diprivan Drip (Icu) (06/28/19 04:30) Arterial Blood Draw (06/28/19 ) Medications Given in ED Current Medications Medications Dose Ordered Sig/Dawna Route Start Time Stop Time Status Last Admin Dose Admin Acetylcysteine 2 ML ONCE ONCE INH 06/27/19 22:45 06/27/19 22:46 DC 06/27/19 22:40 3 ML Albuterol/ Ipratropium 3 ml ONCE ONCE INH 06/27/19 20:45 06/27/19 20:46 DC 06/27/19 20:45 3 ML Dexamethasone Sodium Phosphate 10 mg STK-MED ONCE .ROUTE 06/27/19 22:30 06/27/19 22:38 DC 06/27/19 22:30 10 MG Dexamethasone Sodium Phosphate 10 mg STK-MED ONCE .ROUTE 06/27/19 22:30 06/27/19 22:38 DC 06/27/19 22:30 10 MG Insulin Human Regular 5 unit ONCE ONCE IV 06/27/19 21:00 06/27/19 21:01 DC 06/27/19 20:59 5 UNIT Insulin Human Regular 5 unit ONCE ONCE IV 06/27/19 22:15 06/27/19 22:16 DC 06/27/19 22:23 5 UNIT Insulin Human Regular 5 unit ONCE ONCE IV 06/28/19 00:15 06/28/19 00:16 DC 06/28/19 00:04 5 UNIT Lactated Ringer's 1,000 ml @ 0 mls/hr Q0M ONCE IV 06/27/19 21:26 06/27/19 21:28 DC 06/27/19 22:10 0 MLS/HR Methylprednisolone Sodium Succinate 125 mg ONCE ONCE IVP 06/28/19 04:30 06/28/19 04:31 DC 06/27/19 22:38 125 MG Piperacillin Sod/ Tazobactam Sod 4.5 gm/Sodium Chloride 120 ml @ 240 mls/hr ONCE ONCE IV 06/27/19 21:15 06/27/19 21:44 DC 06/27/19 21:30 240 MLS/HR Propofol 100 ml @ 5.715 mls/ hr [id number] ONCE IV 06/28/19 04:30 06/28/19 21:59 06/27/19 23:29 11.43 MLS/HR Sodium Chloride 1,000 ml @ 0 mls/hr Q0M ONCE IV 06/27/19 23:52 06/27/19 23:53 DC 06/27/19 23:53 0 MLS/HR Vital Signs/I&O 06/27/19 06/27/19 06/27/19 06/27/19 20:39 20:39 20:45 21:46 Temp 97.4 Pulse 140 Resp 30 B/P (MAP) 149/109 Pulse Ox 97 97 97 95 O2 Delivery Nasal Cannula Nasal Cannula Nasal Cannula Nasal Cannula O2 Flow Rate 4.00 4.00 5.00 2.00 06/27/19 06/27/19 06/27/19 06/27/19 22:30 23:00 23:29 23:29 Pulse Ox 93 95 100 100 O2 Delivery Mechanical Ventilator Mechanical Ventilator O2 Flow Rate 3.00 3.00 06/28/19 00:43 Temp 97.4 Pulse 104 Resp 25 Pulse Ox 100 O2 Delivery Ambu Bag 06/28/19 00:00 Intake Total 2120 ml Balance 2120 ml Capillary Refill : Progress Note #1: Time: 21:02 Progress Note Provider was promptly summoned to the room by nursing staff immediately placed patient on nasal cannula. Patient seen and examined. Chart reviewed. Sepsis workup underway. A liter of IV fluid is infusing. Blood sugar was significantly elevated and 5 units of insulin has been ordered for initial treatment. DuoNeb treatment is being administered. Patient is on nasal cannula. Progress Note #2: Time: 22:27 Progress Note Patient's respiratory status has improved significantly after 2 DuoNeb treatments. He reports his breathing is now at baseline. He is maintaining an oxygen saturation of 94 percent on 1 L nasal cannula. Chest x-ray revealed some residual evidence of pneumonia. Sepsis is presumed. He completed 1 L of IV normal saline. Blood sugars trending down after the first dose of insulin 5 units IV. A second dose of insulin 5 units is being administered now along with his second liter of IV fluid. He is still significantly tachycardic and presumed to be hypovolemic. Zosyn has been administered for initial antibiotic therapy. I discussed the case with Dr. Burgos, hospitalist on-call. Given patient's overall fragile condition and history of severe complications, we believe he should be admitted at a facility with ICU capability. [facility] is presently on ICU diversion, and patient requested transfer to [facility]. A call has been placed to the [facility] transfer center. Progress Note #3: Time: 23:29 Progress Note Patient developed intractable respiratory distress with retractions and stridor. Respiratory distress was refractory to nebulizer treatments including dexamethasone, albuterol, and Mucomyst. Distress did not improve with Vapotherm. Intubation was deemed necessary. Transfer is being arranged for critical care treatment at [facility]. See critical care notes. ECG Initial ECG Impression Date: Jun 27, 2019 Initial ECG Impression Time: 21:07 Initial ECG Rate: 137 Initial ECG Rhythm: S.Tach Comment Sinus tachycardia with no ST elevation or depression. No abnormal intervals or axis deviation. Diagnostic Imaging Diagonstic Imaging: Xray Plain Films/CT/US/NM/MRI: chest Comments Chest x-ray viewed by me and report reviewed. Compared with prior. See report below: NAME: MIRIAN COLLINS MED REC#: [id number] PT STATUS: REG ER : 2000 PHYSICIAN: BHAVESH TOWNSEND MD ADMIT DATE: 06/27/19/ER Draft Date of Exam:06/27/19 CHEST 1 VIEW, AP/PA ONLY INDICATION: Shortness of air. Throat pain. COMPARISON: 06/12/2019 FINDINGS: Single frontal radiographic view of the chest was obtained. Overall, there has been interval improved aeration when compared to prior exam. There are, however, dense patchy and confluent infiltrates within the medial left mid and lower lung field. Some minimal patchy infiltrates persist on the right as well. No large effusion or pneumothorax is seen on either side. Cardiac silhouette and pulmonary vasculature are within normal limits. Osseous structures show no gross acute abnormalities. IMPRESSION: 1. Overall improved aeration, but with persistent bilateral predominant perihilar infiltrates, left greater than right Dictated on workstation # [id number] Dict: 06/27/192117 Trans: 06/27/192121 [facility], [facility] [id number] Interpreted by: LISANDRO QUISPE MD Critical Care Note Critical Care Start Time: 22:40 Stop Time: 00:43 Progress Patient developed respiratory distress with stridor and retractions. Multiple interventions were attempted including nebulized dexamethasone 20 mg, Mucomyst, albuterol, and Vapotherm. These interventions did not improve his condition. He was coughing up some very large thick clumps of sputum but this also did not resolve his respiratory distress. Case was discussed with Dr. Escobedo. Patient wanted to try to avoid intubation but intubation became unavoidable for his safety and stabilization for transport. Patient did eventually consent to intubation. Consultation was sought with Dr. Deshpande for possible emergent tracheostomy and with anesthesia for a possible difficult intubation. Intubation was successfully performed by anesthesia. RSI was performed with etomidate and succinylcholine. Sedation was maintained with propofol. Propofol was titrated down due to hypertension. Hypertension resolved with titration of propofol and an additional liter of saline. Patient received a total of 3 L of IV fluid. CV total of 15 units of insulin by IV route in 3 doses of 5 units each. Blood sugars remained in the 400 range. Patient was initially to be admitted to the hospitalist service in the ICU at [facility]. However, after intubation he was admitted to the [facility] charcoal burner service of Dr. Modi at [facility]. Kylie arrived at 00:234 transport. Patient remained stable. Transfer by air was felt most appropriate due to concerns about airway decompensation from mucus plugging or other complications. Departure Impression Primary Impression: Respiratory failure Qualified Codes: J96.01 - Acute respiratory failure with hypoxia Additional Impressions: Bilateral pneumonia Qualified Codes: J18.9 - Pneumonia, unspecified organism Sepsis Qualified Codes: A41.9 - Sepsis, unspecified organism Poorly controlled type 1 diabetes mellitus Disposition: XFER SHT-TRM HOSP Condition: Stable Transfer Time Spoke to Accepting Phy: 23:26 Transfer Progress Notes Patient originally was to be transferred to the hospitalist service at [facility]. However, he developed worsening respiratory distress refractory to interventions and required intubation. Patient is were then made to transfer the patient to the [employer] service under the care of Dr. Modi the patient at 23:26. Transfer Time: 00:43 Transfer Facility: [place], [place] Method of Transfer: Air Departure-Patient Inst. Referrals: KALLIE GAUTAM MD (PCP/Family) Primary Care Physician BHAVESH TOWNSEND MD Jun 27, 2019 21:02
[2019-06-27 21:04] LABS: ALLENS TEST YES-POS; INSPIRED O2 5L; PATIENT TEMP 97.4; VENTILATOR NO
[2019-06-27 21:06] LABS: INR 0.9 (0.8-1.4)
[2019-06-27 21:14] LABS: ALANINE AMINOTRANSFERASE 13 U/L (0-55); ALBUMIN 3.9 GM/DL (3.2-4.5); ALKALINE PHOSPHATASE 129 U/L (40-136); BAND NEUTROPHILS 3 %; BILIRUBIN,TOTAL 0.3 MG/DL (0.1-1.0); BUN/CREATININE RATIO 17; CALCIUM 11.7 MG/DL (8.5-10.1); CARBON DIOXIDE 26 MMOL/L (21-32); CHLORIDE 95 MMOL/L (98-107); CREATININE SERUM 0.87 MG/DL (0.60-1.30); GFR ESTIMATED > 60; NEUTROPHILS % (MANUAL) 77 %; POTASSIUM 4.3 MMOL/L (3.6-5.0); SODIUM 136 MMOL/L (135-145); TOTAL PROTEIN 8.4 GM/DL (6.4-8.2)
[2019-06-27 21:15] LABS: EOSINOPHILS % (MANUAL) 1 %; LYMPHOCYTES % (MANUAL) 11 %; MONOCYTES % (MANUAL) 8 %; RBC MORPH NORMAL
[2019-06-27] MEDS ORDERED: PIPERACILLIN/TAZOBACTAM (BULK) 4.5 GM in NS (IVPB) 100 ML IV ONE (21:15)
[2019-06-27 21:17] LABS: GLUCOSE 492 MG/DL (70-105)
[2019-06-27] MEDS ORDERED: PIPERACILLIN/TAZO 4.5 GM VIAL (ZOSYN) IV ONE (21:17)
[2019-06-27] MEDS ORDERED: NS (IVPB) 100 ML ONE (21:17)
--- NOTE | 2019-06-27 21:23 | Diagnostic Imaging Report ---
INDICATION: Shortness of air. Throat pain. COMPARISON: 06/12/2019 FINDINGS: Single frontal radiographic view of the chest was obtained. Overall, there has been interval improved aeration when compared to prior exam. There are, however, dense patchy and confluent infiltrates within the medial left mid and lower lung field. Some minimal patchy infiltrates persist on the right as well. No large effusion or pneumothorax is seen on either side. Cardiac silhouette and pulmonary vasculature are within normal limits. Osseous structures show no gross acute abnormalities. IMPRESSION: 1. Overall improved aeration, but with persistent bilateral predominant perihilar infiltrates, left greater than right Dictated by: Dictated on workstation # [id number]
[2019-06-27] MEDS ORDERED: LACTATED RINGERS 1,000 ML IV ONE (21:26)
[2019-06-27 21:34] LABS: BILIRUBIN,URINE NEGATIVE (NEGATIVE); CLARITY,URINE CLEAR; COLOR,URINE YELLOW; GLUCOSE, URINE (UA) 4+ (NEGATIVE); KETONES,URINE NEGATIVE (NEGATIVE); LEUKOCYTE ESTERASE ,URINE NEGATIVE (NEGATIVE); NITRITE,URINE NEGATIVE (NEGATIVE); PH,URINE 7 (5-9); PROTEIN,URINE 1+ (NEGATIVE); UROBILINOGEN,URINE NORMAL (NORMAL)
[2019-06-27 21:40] LABS: BACTERIA,URINE FEW /HPF; WBC,URINE RARE /HPF
[2019-06-27] MEDS ORDERED: methylPREDNISolone 125 MG (Solu-MEDROL) VIAL ONE (22:29)
[2019-06-27] MEDS ORDERED: DEXAMETHASONE 10 MG/ML (DECADRON) 1 ML VIAL ONE ×2 (22:30)
--- NOTE | 2019-06-27 22:33 | NUR ---
Called to pt room by grandfather. Upon entering room pt seated in tripod position with labored breathing noted. Severe abd retractions noted. 10L via oxymask applied. Provider in room.
[2019-06-27] MEDS ORDERED: RT-ALBUTEROL SULF 2.5 MG/3 ML PRE-MIX VIAL INH STA (22:44)
[2019-06-27] MEDS ORDERED: aCETylcysteine 20% (MUCOMYST) 30ML SOLN VIAL INH ONE (22:45)
--- NOTE | 2019-06-27 22:45 | NUR ---
Pt noted to be pale, diaphoretic, with stridor noted. RT @ bedside initiated vapotherm. Provider in room with pt.
[2019-06-27] MEDS ORDERED: LIDOCAINE 1% INJ 20 ML 20 ML VIAL ONE (23:06)
[2019-06-27] MEDS ORDERED: PROPOFOL DRIP (ICU) 100 ML IV ONE (23:11)
--- NOTE | 2019-06-27 23:34 | NUR ---
2304: Dr. Deshpande and SARAH Alamo in room and recieved pt report. 2308: 18g iv to Lt hand accessed by JORGE Chi. 2322: 40mg Etomidate 2323: 80mg Succinylcholine 2324: Time of intubation by SARAH Alamo. 7.0 ET tube. 24" @ middle of mouth. + Breath sounds heard bilat per Dr. Sosa. 2328: 16 Fr OG 2329: 40mcg/kg/hr (9.8ml/hr) Propofol infusion initiated. 2334: 16Fr peralta catheter
--- NOTE | 2019-06-27 23:36 | Anesthesia-Procedure Note ---
Procedures/Interventions Procedure Start/Stop/Diagnosis Date of Procedure: Jun 27, 2019 Start Time: 23:20 Stop Time: 23:24 Intubation RSI: Yes 100% pre-Ox, [id number]: Yes Intubation Method: orotracheal Adamson (size used 0-4): 2 Videoscope used: No Grade View: 1 Medications: Etomidate, Succinylcholine Mask Ventilation: positive Positive End Tide CO2: Yes Breath Sounds after Intubation: bilateral-equal ETT Securred @ (cm): 21 Intubated with ease: Yes Intubation Complications: no complications Post Intubation Xray-done: Yes ANIKA CARO CRNA Jun 27, 2019 23:36
--- NOTE | 2019-06-27 23:45 | NUR ---
ABG obtained by RT from rt radial. 99.1 tympanic temp.
[2019-06-27] MEDS ORDERED: NS IV 1000 ML 1,000 ML ONE (23:46)
[2019-06-27] MEDS ORDERED: NS IV 1000 ML 1,000 ML IV ONE (23:52)
[2019-06-27 23:55] LABS: ABG BASE EXCESS 0.1 MMOL/L (-2.5-2.5); ABG OXYGEN SATURATION 100 % (94-100); ABG PCO2 47 MMHG (35-45); ABG PH 7.35 (7.37-7.43); ABG PO2 399 MMHG (79-93); ABG TCO2 26.2 MMOL/L (21.0-31.0); ALLENS TEST YES-POS
[2019-06-27 23:56] LABS: INSPIRED O2 100%; PATIENT TEMP 99.1; VENTILATOR NO
[2019-06-28] MEDS ORDERED: inSUlin (REGULAR) HUMAN 1 UNIT/0.01 ML (CHARGE PER UNIT) IV ONE (00:15)
[2019-06-28] MEDS ORDERED: methylPREDNISolone 125 MG (Solu-MEDROL) VIAL IVP ONE (04:30)
[2019-06-28] MEDS ORDERED: PROPOFOL DRIP (ICU) 100 ML IV ONE (04:30)
--- NOTE | 2019-06-28 06:27 | Diagnostic Imaging Report ---
INDICATION: Shortness of air COMPARISON: None available TECHNIQUE: Two radiographs of the soft tissues of the neck dated 06/27/2019. FINDINGS: Enlargement and dilation of the airway is noted, including the pharynx and hypopharynx. The epiglottis and aryepiglottic folds are unremarkable. No thickening of the prevertebral soft tissues. Narrowing of the subglottic trachea. No suspicious radiopaque foreign body. No acute osseous abnormality. IMPRESSION: Diffuse gaseous distention of the airway within the neck. This could relate to croup given slight subglottic tracheal narrowing. However, patient is slightly older than typically seen with croup. Epiglottis and aryepiglottic folds are unremarkable. Dictated by: Dictated on workstation # [id number]
--- NOTE | 2019-06-28 06:32 | Diagnostic Imaging Report ---
INDICATION: Shortness of air COMPARISON: Imaging from the same date. TECHNIQUE: Single frontal radiograph of the chest dated 06/27/2019 at 2238 FINDINGS: The cardiac silhouette and pulmonary vasculature are within normal limits. Bilateral pulmonary infiltrates are again noted, particularly within the left hilar region extending to the left lung base. This is unchanged since the recent examination. No pleural effusion. No pneumothorax. No acute osseous abnormality. IMPRESSION: Stable bilateral pulmonary infiltrates, left greater than right. Dictated by: Dictated on workstation # [id number]
--- NOTE | 2019-06-28 07:14 | Diagnostic Imaging Report ---
INDICATION: Respiratory distress. Intubation chest. Comparison with 06/27/2019. FINDINGS: ET tube is now present tip is approximately 3 cm above the darrin. NG tube is present tip extends to the level of the GE junction in the esophagus. Lungs are well-aerated. There are bilateral perihilar infiltrates with some consolidated alveolar changes noted in the left lung base. No pneumothorax or pleural effusion. IMPRESSION: 1. Satisfactory ET tube position. 2. NG tube needs to be advanced approximately 6 cm. 3. Bilateral infiltrates more dense in the left lung base. Dictated by: Dictated on workstation # [id number]
== END 2019-06-28 00:43 | disposition short-term general hospital (02) ==
LOC: EDUNIT# 20:36 → ER 20:38
DX: A41.9 Sepsis, unspecified organism (principal); J18.9 Pneumonia, unspecified organism; J96.90 Respiratory failure, unspecified, unspecified whether with hypoxia or hypercapnia; E10.9 Type 1 diabetes mellitus without complications; K21.9 Gastro-esophageal reflux disease without esophagitis; Z79.4 Long term (current) use of insulin
CPT/HCPCS: 31500; 36415; 36600; 51702; 70360; 71045; 80053; 81000; 82550; 82805; 82962; 83605; 85007; 85027; 85610; 85730; 86141; 87040; 87070; 87077; 87088; 87186; 87205; 93005; 94640; 94760; 96361; 96365; 96375; 96376

== ENCOUNTER 2019-07-30 14:27 | Emergency (ER) | payer OTHER ==
[~2019-07-30] VITALS: Ht 182 cm; Wt 55.0 kg
--- NOTE | 2019-07-30 15:15 | ED CPR ---
HPI-CPR General Chief Complaint: Code Blue Stated Complaint: CODE BLUE Source of Information: EMS, Old Records (ALL PMH IS FROM OLD RECORDS) History of Present Illness Date Seen by Provider: Jul 30, 2019 Time Seen by Provider: 14:30 Initial Comments PT ARRIVES VIA EMS --CODE BLUE IN PROGRESS PT WITH LONGSTANDING DIABETES, WITH MULTIPLE EPISODES OF DKA, INCLUDING COMA PT HAS HAD MULTIPLE RECENT HOSPITALIZATIONS FOR SEPSIS, DKA, RESPIRATORY FAILURE, PNEUMONIA PT HAS BEEN INTUBATED SEVERAL TIMES RECENTLY AND HAD A TRACH AT ONE POINT, WHICH HAS BEEN REMOVED. PT HAS FEEDING TUBE IN PLACE, DUE TO FREQUENT ASPIRATION. PT HAD BEEN RECENTLY ADMITTED AT [facility], AND ACCORDING TO EMS, AND HE JUST LEFT THERE TODAY PER BYSTANDERS AT THE SCENE (MULTIPLE YOUNG ADULTS), PT WAS "ASLEEP IN THE CAR" SOON HE LEFT [facility] AND THEY COULD NOT WAKE HIM UP, SO THEY DROVE HOME, BUT THEN COULD NOT GET HIM TO WAKE UP AFTER THEY GOT BACK HERE EITHER, SO CALLED EMS CANNOT VERIFY EXACT LAST KNOWN WELL TIME. NO ONE FROM THE SCENE CAME TO HOSPITAL OR CALLED TO INQUIRE ABOUT HIM. PT WAS IN FULL ARREST, AND IN ASYSTOLE WHEN EMS ARRIVED AT THE SCENE. PUPILS FIXED AND DILATED ACCUCHECK WAS 115 BY EMS. CPR WAS INITIATED AND AN "I-GEL" AIRWAY DEVICE WAS PLACED BY EMS EMS GAVE EPINEPHRINE X 2, NARCAN, AND BICARB--ALL WITHOUT ANY RETURN OF CIRCULATION ON ARRIVAL, PT CONTINUES TO BE IN FULL ARREST, AND IN ASYSTOLE. CODE CALLED AT 1432, PT'S DOWN TIME HAS BEEN > 30 MINUTES, AND HAS BEEN IN ASYSTOLE THE ENTIRE TIME. Allergies and Home Medications Allergies Coded Allergies: No Known Drug Allergies (Unverified , 06/23/09) Home Medications Citalopram Hydrobromide 20 Mg Tablet, 20 MG PEG DAILY Prescribed by: STEVAN BURGOS on 05/26/19 1011 Insulin Aspart 300 Units/3 Ml Solution, 3 UNITS SQ ACHS 1 UNIT PER EVERY 10 GRAMS OF CARBS Prescribed by: STEVAN BURGOS on 05/26/19 1011 Insulin Determir 1,000 Units/10 Ml Soln, 3 UNIT SQ BID Prescribed by: STEVAN BURGOS on 05/26/19 1011 Metoclopramide HCl 10 Mg Tablet, 10 MG PEG TID Prescribed by: STEVAN BURGOS on 05/26/19 1011 Metoprolol Tartrate 50 Mg Tablet, 100 MG PEG BID Prescribed by: STEVAN BURGOS on 05/26/19 1011 Patient Home Medication List Home Medication List Reviewed: Yes Review of Systems Review of Systems Constitutional: other (FULL ARREST) Other Comments SEE OLD CHARTS FOR RECENT HOSPITALIZATIONS HERE Past Emhamoz-Defsdi-Twlzix Hx Patient Social History Alcohol Use: Denies Use Recreational Drug Use: No Type Used: Cigarettes 2nd Hand Smoke Exposure: No Recent Foreign Travel: No Contact w/Someone Who Travel: No Recent Hopitalizations: Yes (DKA D/C 05/26/19) Immunizations Up To Date Tetanus Booster (TDap): Unknown Seasonal Allergies Seasonal Allergies: No Past Medical History Surgeries: Yes (trach, peg tube) Respiratory: Yes (TRACH, history of respiratory failure and intubation) Pneumonia Currently Using CPAP: No Currently Using BIPAP: No Cardiac: Yes (tachycardia) Neurological: No Reproductive Disorders: No Sexually Transmitted Disease: No HIV/AIDS: No Genitourinary: No Gastrointestinal: Yes (WT LOSS/peg tube placement) Gastroesophageal Reflux Musculoskeletal: No Endocrine: Yes (MULTIPLE EPISODES OF DKA) Diabetes, Insulin dep HEENT: No Loss of Vision: Denies Hearing Impairment: Denies Cancer: No Psychosocial: No Integumentary: No Recent Skin Changes Blood Disorders: No Adverse Reaction/Blood Tranf: No Family Medical History Patient reports no known family medical history. Other Conditions/Hx Physical Exam Vital Signs Vital Signs - First Documented 07/30/19 14:38 Pulse 0 Resp 0 O2 Delivery Ambu Bag Capillary Refill : Height, Weight, BMI Height: 5'10.00" Weight: 90lbs. 8.0oz. [id number]; 7.03 BMI Method:Stated General Appearance: Cachetic, Other (FULL ARREST WITH CPR IN PROGRESS. HAS BEEN INCONTINENT OF STOOL.) HEENT: Other (PUPILS FIXED AND DILATED. DRIED SECRETIONS IN NOSE) Neck: No JVD Respiratory: Other (APNEIC) Cardiovascular: Other (PULSELESS AND IN ASYSTOLE) Gastrointestinal: Other (FEEDING TUBE IN PLACE) Neurologic/Psychiatric: Other (UNRESPONSIVE) Skin: Pallor Procedures/Interventions Date of ETT Placement: Jun 27, 2019 Time of ETT Placement: 2323 Progress/Results/Core Measures Results/Orders Vital Signs/I&O 07/30/19 14:38 Pulse 0 Resp 0 B/P (MAP) O2 Delivery Ambu Bag Critical Care Note Critical Care Start Time: 14:30 Date of : Jul 30, 2019 Time of : 14:32 Departure Communication (Admissions) Family Conversation 1445--PT'S MOTHER CALLED, AND STATES SHE WILL BE HERE IN 20 MINUTES 1530--PT'S MOM IS NOW HERE. SHE STATES SHE LAST SAW HIM ON WEDNESDAY. SHE REPORTS THAT PT WAS TRANSFERRED FROM [place] TO [place] ON WEDNESDAY, AND THAT HE SIGNED OUT AMA TODAY FROM [place] SHE REPORTS THAT PT HAD BEEN INTUBATED, AND STATES THAT PT WAS GOING TO NEED TO BE INTUBATED AGAIN, BUT DUE TO SCAR TISSUE AND ONE OF HIS VOCAL CORDS BEING PARALYZED, THEY WANTED TO DO ANOTHER TRACH (HAD ONE IN PAST, THAT WAS LATER REMOVED) AND PT REFUSED AND SIGNED OUT AMA, AND ONE OF HIS FRIENDS APPARENTLY PICKED HIM UP AND DROVE HIM BACK TO [place]. PT HAD BEEN STAYING WITH ONE OF HIS FRIENDS [place] LAT[place]. MOM STATES HIS PCP IS DR. MONTEZ 1540--SPOKE WITH DR. STEWATR, ADMISSION NURSE. HE ADVISES THAT NO AUTOPSY IS REQUIRED. 154--I SPOKE WITH DR. MONTEZ, HE REPORTS THAT PT WAS NOT ACTUALLY AN ESTABLISHED CLINIC PT OF HIS, THAT HE HAD ONLY SEEN HIM IN THE HOSPITAL IN [place]. HE WILL CONTACT DR. STEWART REGARDING WHO WILL SIGN CERTIFICATE. 1645--[employer] HERE, AND [facility] WILL BE ARRIVING SHORTLY. [employer] O[employer] STATES THAT PT HAS BEEN A PT AT [facility] AND THEY WILL BE CONTACTING THEM TO SIGN CERTIFICATE. Impression Primary Impression: Cardiopulmonary arrest Disposition: 20 Condition: Departure-Patient Inst. Referrals: KALLIE GAUTAM MD (PCP/Family) Primary Care Physician LUIS BOOKER DO Jul 30, 2019 15:15
[2019-07-30 17:07] VITALS: BP 0/0
== END 2019-07-30 17:10 | disposition expired ==
LOC: ER 14:27
DX: I46.9 Cardiac arrest, cause unspecified (principal); E11.11 Type 2 diabetes mellitus with ketoacidosis with coma; K21.9 Gastro-esophageal reflux disease without esophagitis; Z79.4 Long term (current) use of insulin; Z87.01 Personal history of pneumonia (recurrent)